=== PATIENT | female | born 1945 | race Caucasian/White ===

== ENCOUNTER 2018-03-11 09:30 | Emergency (ER) | payer MEDICARE, MEDICAID, SELFPAY ==
[2018-03-11] VITALS (13 sets, daily range): BP systolic 139–159; BP diastolic 73–79; PULSE 67–76; RESP 10–18; TEMP 36.6; O2SAT 96–100
--- NOTE | 2018-03-11 10:21 | DI.RAD_ITS ---
SYMPTOMS/DIAGNOSIS: COUGH PA AND LATERAL CHEST: The heart is not enlarged. There appear to be changes of COPD. No evidence of focal consolidation. No pleural effusion seen. CONCLUSION: COPD. No evidence of acute disease.
--- NOTE | 2018-03-11 10:29 | ED.GENADUL_ITS ---
Discharge Plan Disposition Patient Disposition: HOME Condition: Fair Discharge Details Chief Complaint: GenMedical Clinical Impression: Heart palpitations, Cough Primary Care Provider: None,None ED Provider: Hayley Alvarez Home Meds and New Rx's Prescriptions: New benzonatate [Tessalon Perles] 100 mg capsule 100 mg PO QID PRN (Reason: cough) Qty: 10 RF: 0 No Action A Variety Of Herbs RF: 0 Discharge Instructions Instructions: Palpitations (ED), Acute Cough (ED) Additional Instructions: Encourage hydration. Increase your daily food intake. You may use Tessalon Perles as prescribed to help with cough. Holter monitor as directed by respiratory therapy Please call primary care office today to schedule follow-up as discussed. Review develop shortness of breath, chest pain, fevers or the new/worsening symptoms please seek care urgently once again. Please begin the potassium supplement as previously advised. You are being sent home with a second potassium supplement to take tonight Referrals: Farzaneh Davalos [ [facility] STAFF PHYSICIAN] - ([phone]) Discharge Data Discharge Date/Time-TO BE ENTERED AT DEPARTURE: 03/11/18 13:07 Medical Decision Making Patient presents with a multitude of complaints today. She appears very anxious on exam. Vital signs are within normal limits. She is currently asymptomatic. Patient does have an odd affect, appears anxious. I questioned the daughter, who generally cares for her mother and is planning to move in with her shortly, about her demeanor. Daughter reports that since a fall in June, her mother has been having more short-term memory loss, anxiety. 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 Patient is very fixated on this, is already requesting discharge so she can go to take care of her dogs. Daughter reports that she often goes without eating as she fixates so much on the dogs she does not have time to care for herself. Has had weight loss over recent months. Patient reports that she had palpitations this morning ubaldo doing her typical morning activites. Has had these multiple times in the past, had these yesterday for short period as well. Reports that when she gets them, they will last a few minutes and self resolve. Denies CP or SOB with symptoms. Daughter reports she has had zio patch previously but she did not tolerate this well, this was after fall in June to evaluate for possilbe syncopal episode. She had not initially told these symptoms to daughter or nursing staff. Daughter is questioning if this is associated with her expressing her own symptoms of her known atrial fibrillation. When mother called her in a panic this morning, she called secondary to nausea and not feeling well. Patient has had increased confusion over quite some time per daughter report. Daughter denies any acute change recently. Daughter is planning on moving in with the patient to help with her day to day care and help with increasing her PO intake. She denies any recent head trauma, no visual changes. Patient seems unaware of her confusion but quesitoning does reveal confusion about day to day activities. Again, patient seems to largely fixate on her dogs. Patient endorses cough as above x 9 days. Lungs are clear on exam. She also reports intermittent nausea/vomiting, denies nausea currently. No abdominal pain on exam. Mild dry cough was noted while I was in the room. Differential diagnosis include URI, pneumonia, unusual cardiac rhythm, anxiety vs. other. Patient does not have risk factors for PE, is not tachycardic or hypoxic. No SOB. Find ACS unlikely as she has not had any chest discomfort, palpitations are not associated with exertion. Plan to obtain EKG, CXR, laboratory evaluation. EKG reivewed by Dr. Padilla. Patient in NSR, rate 71 with no ischemic changes noted. Labs significant for luekopenia, WBC 2.69, lymphocytes 0.52. Patient has had low previously but WBC is not typically this low. Discussed this with Dr. Padilla, he reviewed labs and advised that at this time he follow up with primary care for further evaluation. Potassium 3.0, patient has been low historically. Had been previously advised to take supplement but patient has refused as she does not take medications, prefers holistic medications. PCP had been concerned this was related to poor po intake. CXR reviewed by radiologist: COPD. No evidence of acute disease. Discussed findings with tehpatient. Advised that she wear a Holter Monitor, she idd not tolerate the length of time associated with a zio patch, for continued evaluation of her palpitations. She has remained asymptomatic here. Has had symptoms intermittently for quite some time, repeat troponin is not indicated at this time. In regard to cough, no evidence of bacterial source. No pulmonary findings on CXR, lungs clear on exam. Patient prescribed Tessalon Perles to help with symptomatic management. We discussed new/worsening symptoms andwhen to seek care urgently once again. I reached out to PCP, she is not available today but I was able to speak with nursing staff. We discussed the patients decline, WBC, palpitations, cough and increasing confusion. Advised close f/u with PCP. Daughter will make apointment as this iwll need to be around her work scheule. Holter applied by respiratory therapy. Potassium replenished. Advised on dietary changes. Urged the patient to worry about her own health primarily and care for the dogs secondarily. While here, her anxiety was clearly rising, seemed to be associated with time away from animals. Given strict return precautions. All of their questions nad concerns were addressed, they are in agreement with estevan casey. HPI General Mode of arrival: ambulatory . Date/Time Provider Initiated Documentation: 03/11/18 09:51 . Limitations to Documentation: no limitations . Information obtained by: patient and family . HPI Narrative: Patient is a 72-year-old female, accompanied by her daughter, with multiple complaints. She initially reported by nursing staff that her primary concern was upper respiratory symptoms that began 9 days ago with cough. She denies any ear pain, sore throat. States that when the illness initially began, she was having bert sea, vomiting and diarrhea. She reports this only lasted a few days and resolved. However, patient reports that nausea and vomiting came back this morning and she vomited x1. No diarrhea since the initial onset of illness. States she is having normal bowel movements at this time. Denies any abdominal pain. She denies any shortness of breath or chest pain. Denies any known sick contacts. No recent travel. No recent antibiotics When I spoke with the patient, she also began endorsing a feeling of her heart beating hard this morning that came on while doing her typical morning routine and insidiously resolved. Again, patient denied any feeling of shortness of breath or chest pain with this. Reports that she has had these types of symptoms previously. Related Data Home Medications Medication Instructions Recorded Confirmed A Variety Of Herbs 07/10/17 benzonatate [Tessalon Perles] 100 mg PO QID PRN #10 cap 03/11/18 Previous Rx's Medication Instructions Recorded benzonatate [Tessalon Perles] 100 mg PO QID PRN #10 cap 03/11/18 Allergies Allergy/AdvReac Type Severity Reaction Status Date / Time Penicillins Allergy Unknown Unverified 03/11/18 09:45 General Stated Complaint: GenMedical SRINIVAS: 3 Review of Systems Review of Systems patient is confused, story unclear and changes frequently Constitutional Reports as per HPI, Denies chills, Denies fever(s), Denies headache(s), Denies lethargy and Denies poor appetite Eyes Denies change in vision ENT Reports as per HPI, Denies headache(s), Denies hoarseness, Reports nasal congestion, Reports nasal discharge and Denies sore throat Cardiovascular Reports as per HPI, Denies chest pain, Denies syncope, Denies rapid heart rate, Denies pedal edema, Denies edema, Denies irregular heart rhythm, Denies radiating jaw, neck or arm pain, Reports palpitations, Denies dyspnea and Denies dyspnea on exertion Respiratory Reports as per HPI, Reports cough, Denies hemoptysis, Denies pain on inspiration, Denies pain with cough, Denies dyspnea, Denies dyspnea on exertion and Denies wheezing Gastrointestinal Reports as per HPI, Denies abdominal pain, Denies diarrhea, Reports nausea, Reports vomiting and Denies hematemesis Musculoskeletal Reports as per HPI and Denies back pain Integumentary/Breasts Reports as per HPI and Denies rash Neurologic Denies syncope and Denies headache(s) Endocrine Reports palpitations Allergic/Immunologic Denies wheezing Exam Const General: cooperative, healthy appearing, comfortable, no acute distress and well developed Nutritional Appearance: average body habitus and well nourished Orientation: alert, awake and oriented x3 HENMT Head: normal to inspection Ears: hearing grossly normal bilaterally Mouth: moist mucous membranes Chest Chest: normal inspection of the chest, normal palpation of entire chest wall and no crepitus Resp Effort & Inspection: normal respiratory effort, able to speak in complete sentences and no respiratory distress Auscultation: clear to auscultation bilaterally, no rales, no rhonchi and no wheezes Cardio Rate: regular rate Rhythm: regular rhythm Heart Sounds: S1 normal and S2 normal GI Inspection: normal to inspection, no edema and non-distended Palpation: soft, no hepatosplenomegaly, not firm, no guarding, not rigid and nontender Auscultation: normal bowel sounds Back/Spine/Pelvis Back: no CVA tenderness Thoracic/Lumbar Spine: thoracic and lumbar spine normal to inspection Skin General skin exam: no rashes or lesions noted Trauma: no lacerations or abrasions Neuro General: alert, awake and oriented x3 Cognition: normal cognition Speech: speech normal Gait: normal gait Extrem General: normal to inspection, normal capillary refill, no pedal edema, no calf tenderness and normal gait Psych Appearance: grossly normal and well kempt Mental Status: mental status grossly normal Speech and Movement: speech and movement normal Course Vital Signs Temperature 36.6 C 03/11/18 09:37 Pulse 71 03/11/18 09:37 Respiratory Rate 16 03/11/18 09:37 Blood Pressure 159/79 H 03/11/18 09:37 Pulse Oximetry 96 03/11/18 09:37 Temperature 36.6 C 03/11/18 09:37 Temperature Source Temporal Artery Scan 03/11/18 09:37 Pulse 71 03/11/18 09:37 Respiratory Rate 16 03/11/18 09:37 Blood Pressure 159/79 H 03/11/18 09:37 Blood Pressure Position Sitting 03/11/18 09:37 Pulse Oximetry 96 03/11/18 09:37 Oxygen Delivery Method Room Air 03/11/18 09:37 Oxygen Flow Rate 0 03/11/18 09:37 Pain Level 0 03/11/18 09:37
[2018-03-11 10:45] LABS: Absolute Basophil Count 0.01 k/cumm (0.0-0.2); Absolute Eosinophil Count 0.02 k/cumm (0.0-0.7); Absolute Lymphocyte Count 0.52 k/cumm (1.2-3.4); Absolute Monocyte Count 0.37 k/cumm (0.11-0.7); Absolute Neutrophil Count 1.77 k/cumm (1.2-6.7); Basophils % 0.4; Eosinophils % 0.7; HCT 37.8 % (36.0-46.0); HGB 12.8 g/dL (12.0-15.5); Lymphocytes % 19.3; Mean Corp. HGB Concentration 33.9 g/dL (32.0-36.0); Mean Corpuscular Hemoglobin 30.7 pg (27.0-33.0); Mean Corpuscular Volume 90.6 fL (80-95); Mean Platelet Volume 9.5 fL (8.0-11.0); Monocytes % 13.8; Neutrophils % 65.8; Platelet Count 206 x1000/uL (130-400); RBC 4.17 m/cumm (4.00-5.20); RBC Distribution Width 13.8 % (11.7-14.6); White Blood Cell Count 2.69 k/cumm (4.4-10.8)
[2018-03-11 10:58] LABS: Prothrombin Time 9.7 sec (9.3-11.0)
[2018-03-11 10:59] LABS: ALT 24 U/L (12-78); AST 22 U/L (15-37); Albumin 3.4 g/dL (3.4-5.0); Alkaline Phosphatase 60 U/L (46-116); Anion Gap 8.9 mmol/L (3-11); BUN 10 mg/dL (7-18); Bilirubin, Total 0.6 mg/dL (0.2-1.0); CO2 30.1 mmol/L (21.0-32.0); Calcium 8.9 mg/dL (8.5-10.1); Chloride 104 mmol/L (98-107); Glucose 99 mg/dL (70-100); Magnesium 1.7 mg/dL (1.8-2.4); Sodium 143 mmol/L (136-145); Total Protein 6.9 g/dL (6.4-8.2); Troponin I 0.02 ng/mL (0.00-0.06)
[2018-03-11] MEDS: Potassium Chloride 20 MEQ TABCR PO (12:23)
--- NOTE | 2018-03-18 16:13 | HOLTER_ITS ---
Date of dictation: March 18, 2018 Study Indication: Palpitations. Requesting Provider: Farzaneh Davalos N.P. Findings: The patient was monitored for 19 hours and 22 minutes. Baseline rhythm was sinus rhythm. Average heart rate 77 beats per minute, range of 56-123 beats per minutes. 9 PVCs. No VT. 354 PACs. 17 atrial runs, the longest 19 beats, the fastest 181 beats per minute. There was a single episode of atrial fibrillation lasting 1 minute and 15 seconds with a maximum heart rate of 173 beats per minute. No patient events. Final Interpretation: Bursts of atrial tachycardia and a single 1-minute episode of atrial fibrillation, asymptomatic.
== END 2018-03-11 13:07 | disposition home or self-care (01) ==
PROVIDERS: Emergency Provider Physician Assistant; PCP Nurse Practitioner
DX: R00.2 Palpitations (principal); R05 Cough; R41.0 Disorientation, unspecified
CPT/HCPCS: 80053; 93005; 99285; 71046; 83735; 84484; 85025; 85610; 85730; 93010; 93225; 99284

== ENCOUNTER 2018-03-16 09:31 | Outpatient (CLI) | payer MEDICARE, MEDICAID, SELFPAY | END 2018-03-16 09:51 | PROVIDERS: PCP Nurse Practitioner; Visit Provider Nurse Practitioner | DX: R00.2 Palpitations (principal); I48.91 Unspecified atrial fibrillation; I47.1 Supraventricular tachycardia | CPT/HCPCS: 93226 ==

== ENCOUNTER 2018-03-18 08:23 | Outpatient (CLI) | payer MEDICARE, MEDICAID, SELFPAY | END 2018-03-18 08:43 | PROVIDERS: PCP Nurse Practitioner; Referring Provider Physician Assistant; Visit Provider Student in an Organized Health Care Education/Training Program | DX: R00.2 Palpitations (principal); I48.91 Unspecified atrial fibrillation; I47.1 Supraventricular tachycardia | CPT/HCPCS: 93227 ==

== ENCOUNTER 2018-03-20 21:43 | Outpatient (REF) | payer MEDICARE, MEDICAID, SELFPAY ==
[2018-03-20 22:03] LABS: Absolute Basophil Count 0.02 k/cumm (0.0-0.2); Absolute Eosinophil Count 0.02 k/cumm (0.0-0.7); Absolute Lymphocyte Count 0.54 k/cumm (1.2-3.4); Absolute Monocyte Count 0.45 k/cumm (0.11-0.7); Absolute Neutrophil Count 3.66 k/cumm (1.2-6.7); Basophils % 0.4; Eosinophils % 0.4; HCT 36.9 % (36.0-46.0); HGB 12.1 g/dL (12.0-15.5); Lymphocytes % 11.5; Mean Corp. HGB Concentration 32.8 g/dL (32.0-36.0); Mean Corpuscular Hemoglobin 30.1 pg (27.0-33.0); Mean Corpuscular Volume 91.8 fL (80-95); Mean Platelet Volume 10.3 fL (8.0-11.0); Monocytes % 9.6; Neutrophils % 78.1; Platelet Count 344 x1000/uL (130-400); RBC 4.02 m/cumm (4.00-5.20); RBC Distribution Width 13.7 % (11.7-14.6); White Blood Cell Count 4.69 k/cumm (4.4-10.8)
[2018-03-20 22:20] LABS: ALT 19 U/L (12-78); AST 16 U/L (15-37); Albumin 3.7 g/dL (3.4-5.0); Alkaline Phosphatase 64 U/L (46-116); Anion Gap 8.1 mmol/L (3-11); BUN 20 mg/dL (7-18); Bilirubin, Total 0.4 mg/dL (0.2-1.0); CO2 30.9 mmol/L (21.0-32.0); CREATININE 0.74 mg/dL (0.55-1.02); Calcium 9.5 mg/dL (8.5-10.1); Chloride 108 mmol/L (98-107); Glucose 88 mg/dL (70-100); Potassium 3.4 mmol/L (3.5-5.1); Sodium 147 mmol/L (136-145); TSH (W/Ref FT4) 0.92 uIU/mL (0.358-3.74); Total Protein 6.8 g/dL (6.4-8.2)
== END 2018-03-20 22:03 ==
LOC: NCHCN 21:43
PROVIDERS: PCP Nurse Practitioner; Visit Provider Nurse Practitioner
DX: I48.0 Paroxysmal atrial fibrillation (principal); D72.819 Decreased white blood cell count, unspecified
CPT/HCPCS: 80053; 84443; 85025

== ENCOUNTER 2018-03-26 19:32 | Inpatient (IN) | payer MEDICARE, MEDICAID, SELFPAY ==
[2018-03-26 19:47] VITALS: BP 148/65; PULSE 94; RESP 18; TEMP 36.9; O2SAT 98
--- NOTE | 2018-03-26 19:59 | DI.CT_ITS ---
SYMPTOM/DIAGNOSIS: ALTERED MENTAL STATUS NONCONTRAST HEAD CT: Comparison is made with 07/11/15. There is no evidence of intracranial hemorrhage, mass or acute infarct. There is stable mild atrophy and white matter changes consistent with small vessel disease. The ventricles are normal in size. The sinuses, orbits and mastoid air cells are unremarkable. IMPRESSION: White matter changes likely reflecting small vessel disease. No acute abnormality.
--- NOTE | 2018-03-26 20:00 | DI.RAD_ITS ---
SYMPTOM/DIAGNOSIS: ALTERED MENTAL STATUS, ? PNEUMONIA, WEAKNESS AP AND LATERAL CHEST: Comparison is made with 03/11/18. The heart size is normal. The lungs again show mildly increased marking which appear chronic. No superimposed infiltrate, effusion or pulmonary edema is seen. There are no thoracic compression fractures. IMPRESSION: No acute abnormality.
--- NOTE | 2018-03-26 20:02 | ED.GENADUL_ITS ---
Discharge Plan Disposition Patient Disposition: [facility] INPATIENT Condition: Stable Discharge Details Chief Complaint: GenMedical Clinical Impression: Delirium, Acute UTI Primary Care Provider: Farzaneh Davalos ED Provider: Nakul Mendoza Home Meds and New Rx's Prescriptions: No Action A Variety Of Herbs RF: 0 Medical Decision Making 72 yo female with no significant pmhx comes in with her daughter with concerns for increased confusion and general weakness and unsteady gait. 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 The past 2 days or so she has not been able to get out of bed and the daughter today drove 2 hours from where she lives and had to help her out of bed. The patient had an unsteady gait per the daughter. The pt is not sure how long she has been in the bed. She has no focal motor or sensation deficits, is alert but only oriented to name, is not sure what city she is in, doesn't know the month and thought it was 1944. She denies any pain or dyspnea. Will evaluate for acute electrolyte abnormalities, uti, and obtain ct head to eval for possible sdh. Symptoms started over 2 days ago so would not be lytic candidate and symptoms don't seem consistent with a cva pt remains stable, does have a temp of 38.2, wbc of 15, UA appears to show uti. Will treat with ceftriaxone, and given she is too weak to get out of bed will admit for delirium and uti. Differential Diagnosis uti, cva, sdh, anemia, electrolyte abnormality Imaging Data Radiologic Study: Attestation: I personally reviewed and interpreted this imaging study as follows: Imaging: X-Ray Radiologist's impression: IMPRESSION: Hyperinflation of the lungs with flattening of the hemidiaphragms, compatible with COPD. Radiologic Study #2: Attestation: I personally reviewed and interpreted this imaging study as follows: Imaging: CT Scan Radiologist's impression: 1. No acute intracranial pathology. 2. Other chronic findings, as above. Lab Data Lab results reviewed: Yes I reviewed the patient's lab results. HPI General Mode of arrival: ambulatory . Date/Time Provider Initiated Documentation: 03/26/18 19:51 . Limitations to Documentation: altered mental status . Information obtained by: patient and family . History of Present Illness 72 year old F presents to the emergency department with the chief complaint of confusion and weakness, described as moderate, Patient started experiencing this unknown and it has been constant. No relieving factors improve symptom(s), No exacerbating factors reported . Patient notes weakness. Patient did receive the following treatments prior to arrival, none Related Data Home Medications Medication Instructions Recorded Confirmed A Variety Of Herbs 07/10/17 Allergies Allergy/AdvReac Type Severity Reaction Status Date / Time Penicillins Allergy Unknown Unverified 03/26/18 19:46 General Stated Complaint: GenMedical SRINIVAS: 3 Review of Systems Review of Systems All systems reviewed & are unremarkable except as noted in HPI and below Constitutional Denies chills and Denies fever(s) Cardiovascular Denies chest pain and Denies dyspnea Respiratory Denies dyspnea Gastrointestinal Denies abdominal pain, Denies nausea and Denies vomiting Integumentary/Breasts Denies rash Psychiatric Denies depression Endocrine Denies cold intolerance and Denies heat intolerance PFSH Social History Smoking/Tobacco Use Status: Never Exam Const General: no acute distress Orientation: alert HENMT Head: normal to inspection Ears: external ears normal General nose exam: external nose normal Mouth: moist mucous membranes Eyes General: appearance normal, both eyes and all related structures Neck Neck: normal visual inspection Resp Effort & Inspection: normal respiratory effort and able to speak in complete sentences Cardio Rate: regular rate Skin General skin exam: no rashes or lesions noted Neuro General: alert Extrem General: normal to inspection Psych Mental Status: mental status grossly normal Course Vital Signs Temperature 36.9 C 03/26/18 19:47 Pulse 94 H 03/26/18 19:47 Respiratory Rate 18 03/26/18 19:47 Blood Pressure 148/65 H 03/26/18 19:47 Pulse Oximetry 98 03/26/18 19:47 Temperature 36.9 C 03/26/18 19:47 Temperature Source Temporal Artery Scan 03/26/18 19:47 Pulse 94 H 03/26/18 19:47 Respiratory Rate 18 03/26/18 19:47 Respiratory Effort 03/26/18 19:50 Blood Pressure 148/65 H 03/26/18 19:47 Blood Pressure Position Sitting 03/26/18 19:47 Pulse Oximetry 98 03/26/18 19:47 Oxygen Delivery Method Room Air 03/26/18 19:47 Oxygen Flow Rate 0 03/26/18 19:47 Pain Level 0 03/26/18 19:47
[2018-03-26 20:13] LABS: Abs Immature Grans 0.05 k/cumm (0.0-0.09); Absolute Basophil Count 0.02 k/cumm (0.0-0.2); Absolute Lymphocyte Count 0.32 k/cumm (1.2-3.4); Absolute Monocyte Count 0.92 k/cumm (0.11-0.7); Absolute Neutrophil Count 13.86 k/cumm (1.2-6.7); Basophils % 0.1; HCT 33.7 % (36.0-46.0); HGB 11.2 g/dL (12.0-15.5); Immature Grans % 0.3; Lymphocytes % 2.1; Mean Corp. HGB Concentration 33.2 g/dL (32.0-36.0); Mean Corpuscular Hemoglobin 30.5 pg (27.0-33.0); Mean Corpuscular Volume 91.8 fL (80-95); Mean Platelet Volume 10.1 fL (8.0-11.0); Monocytes % 6.1; Neutrophils % 91.4; Platelet Count 195 x1000/uL (130-400); RBC 3.67 m/cumm (4.00-5.20); RBC Distribution Width 14.2 % (11.7-14.6); White Blood Cell Count 15.16 k/cumm (4.4-10.8)
[2018-03-26 20:26] LABS: Magnesium 2.2 mg/dL (1.8-2.4)
[2018-03-26 20:35] LABS: Ammonia < 10 umol/L (11-32)
[2018-03-26 20:36] LABS: INR 0.9 (0.9-1.1); Prothrombin Time 9.4 sec (9.3-11.0)
[2018-03-26 20:38] LABS: ALT 23 U/L (12-78); AST 22 U/L (15-37); Albumin 2.9 g/dL (3.4-5.0); Alkaline Phosphatase 70 U/L (46-116); Anion Gap 8.7 mmol/L (3-11); BUN 43 mg/dL (7-18); Bilirubin, Total 0.9 mg/dL (0.2-1.0); CO2 30.3 mmol/L (21.0-32.0); CREATININE 1.27 mg/dL (0.55-1.02); Chloride 99 mmol/L (98-107); Estimated GFR 41.25 (mL/min/1.73m2); Glucose 99 mg/dL (70-100); Magnesium 2.2 mg/dL (1.8-2.4); Potassium 3.2 mmol/L (3.5-5.1); Sodium 138 mmol/L (136-145); Total Protein 6.7 g/dL (6.4-8.2)
[2018-03-26 20:40] LABS: TSH (W/Ref FT4) 1.35 uIU/mL (0.358-3.74)
--- NOTE | 2018-03-26 20:41 | DI.VRAD_ITS ---
EXAM: CT Head Without Contrast EXAM DATE/TIME: 03/26/2018 8:01 PM CLINICAL HISTORY: 72 years old, female; Signs and symptoms; Altered mental status/memory loss TECHNIQUE: Axial computed tomography images of the head/brain without contrast. All CT scans at this facility use at least one of these dose optimization techniques: automated exposure control; mA and/or kV adjustment per patient size (includes targeted exams where dose is matched to clinical indication); or iterative reconstruction. Coronal and sagittal reformatted images were created and reviewed. COMPARISON: CT HEAD WITHOUT CONTRAST 07/10/2017 12:20 PM FINDINGS: Brain: Nonspecific hypodensities of the periventricular and deep subcortical white matter, most likely secondary to chronic small vessel ischemic change. No intracranial hemorrhage or extra-axial fluid collection. No evidence of mass effect or midline shift. Ulloa-white matter differentiation is normal. Ventricles: Prominence of the ventricles and sulci, most likely attributed to parenchymal volume loss. Bones/joints: No acute osseus lesion or fracture. Sinuses: Unremarkable as visualized. Mastoid air cells: Unremarkable. Soft tissues: Unremarkable. IMPRESSION: 1. No acute intracranial pathology. 2. Other chronic findings, as above. Dictated and Authenticated by: Galindo Prasad MD. Ordering:KITA Mota MD
--- NOTE | 2018-03-26 20:42 | DI.VRAD_ITS ---
EXAM: XR Chest, 2 Views EXAM DATE/TIME: 03/26/2018 8:01 PM CLINICAL HISTORY: 72 years old, female; Signs and symptoms; Other: ? Pneumonia TECHNIQUE: XR of the chest, 2 views. COMPARISON: CR XR CHEST 2V PA LATERAL 03/11/2018 10:46 AM FINDINGS: Lungs: Hyperinflation of the lungs, with flattening of the hemidiaphragms. Mild reticular fibrotic changes in the lung bases. No focal areas of consolidation. Pleural space: No pleural effusion or pneumothorax. Heart/Mediastinum: Cardiac and mediastinal silhouettes are unremarkable. Bones/joints: No acute osseus lesion or fracture. IMPRESSION: Hyperinflation of the lungs with flattening of the hemidiaphragms, compatible with COPD. Dictated and Authenticated by: Galindo Prasad MD. Ordering:KITA Mota MD
[2018-03-26 20:54] VITALS: TEMP 38.2
[2018-03-26 20:55] LABS: Bilirubin Negative (Negative); Blood Small (Negative); Clarity Sl Cloudy; Glucose Negative (Negative); Ketones Negative (Negative); Leukocyte Esterase Small (Negative); Nitrite Negative (Negative); Specific Gravity 1.025 (1.005-1.025); Urobilinogen 0.2 EU/dL (Up TO 0.2)
[2018-03-26 20:55] LABS: ETHANOL BLOOD < 3.0 mg/dL (<3)
[2018-03-26 20:59] LABS: Salicylate < 2.8 mg/dL (2.8-20.0)
[2018-03-26 21:01] LABS: *AMPHETAMINES SCREEN URINE Negative (Negative); *BARBITURATES SCREEN URINE Negative (Negative); *BENZODIAZEPINES SCREEN URINE Negative (Negative); Cannabinoids THC Negative (Negative); Cocaine Screen,Urine Negative (Negative); METHADONE URINE SCREEN Negative (Negative); OPIATES URINE SCREEN Negative (Negative); Tricyclic Antidepressants Negative (Negative)
[2018-03-26 21:14] LABS: Bacteria Rare HPF (Negative); C & S Indicated? Yes; Crystals Moderate Amorphous HPF (Negative); Epithelial Cells Negative HPF (Negative); Mucus Negative (Negative); Other Cells Negative (Negative); WBC >50 HPF (0-5)
[2018-03-26 21:36] VITALS: BP 131/57; PULSE 93; RESP 16; TEMP 37.9; O2SAT 96
[2018-03-26 23:51] VITALS: BP 150/67; PULSE 95; RESP 20; TEMP 37.9; O2SAT 97
--- NOTE | 2018-03-27 01:02 | W.PM.HP.N ---
Date of service: 03/27/18 Time of Service: 01:03 Assessment and Plan (1) Hydronephrosis concurrent with and due to calculi of kidney and ureter: Current visit: Yes Status: Acute keep NPO for possible urologic intervention tomorrow. consult w/ urologist first thing in the a.m.; continue iv antibiotics (Ceftriaxone at 2 gm daily), give analgesics and antiemetics; patel catheter (2) Complicated UTI (urinary tract infection): Current visit: Yes Status: Acute as above (3) Delirium due to another medical condition: Current visit: Yes Status: Acute monitor mental status as urologic infection/stone are resolved; hopefully will return to her baseline dementia (4) Acute kidney injury (nontraumatic): Current visit: Yes Status: Acute prerenal azotemia d/t poor oral intake and acute kidney infection/stone (5) Dehydration: Current visit: Yes Status: Acute poor oral intake; will give iv fluids until able to take adequate po. History of Present Illness Chief Complaint: confusion, weakness Narrative: 72-year-old female with a past medical history of dementia was brought to the emergency room this evening by her daughter because of increased confusion and generalized weakness and unsteady gait. Patient had a general decline in her cognitive status for the past year but generally is able to ambulate on her own and is able to manage to take care of several dogs at home. For last 2 days or so the daughter reports that the patient's been unable to get out of bed and has been more confused. Patient has fever of 38.2. Patient was evaluated in the emergency room by Dr. Nakul Mendoza and workup included routine labs (CMP, CBC, UA) and CT of head w/out contrast. Labs demonstrated leukocytosis of 15,000, mild anemia Hb 11.2 gm, elevated BUN 43, creatinine 1.27, low potassium 3.2, normal LFT, TSH, but UA c/w UTI (small amt blood, small leukocyte esterace, >50 wbc, 5-10, rare bacteria. Urine toxicology screen was negative and salicylate level was less than 2.8. Ammonia level was normal at less than 10. Treatment in the ER included obtaining blood cultures and giving Ceftriaxone 1 gm. Patient is admitted for treatment of dehydration and UTI along w/ acute metabolic encephalopathy in setting of chronic dementia. Since admission, I have found the patient to have significant RLQ abdominal pain and CT was performed to rule out appendicitis. I am awaiting formal reading of CT results but by my interpretations she seems to have significant ureteral-pelvic stone and hydronephrosis on the right. Urology consultation will be obtained in the a.m. Note history was obtained by Dr. Mendoza's report as the patient is unable to give reliable history and her daughter has since gone home. Review of Systems Review of Systems Unobtainable due to mental condition [facility] Social History Smoking/Tobacco Use Status: Never Meds Home Medications Medication Instructions Recorded Confirmed Type A Variety Of Herbs 07/10/17 History Allergies Allergy/AdvReac Type Severity Reaction Status Date / Time Penicillins Allergy Unknown Unverified 03/26/18 19:46 Exam Const General: in distress mild, anxious and ill appearing acutely Orientation: alert, awake, not oriented x3 and confused Limitations: altered mental status HENMT Head: normal to inspection, no palpable skull fracture, normocephalic and atraumatic Ears: hearing grossly normal bilaterally General nose exam: external nose normal and nares normal Face and sinus: normal facial exam Mouth: other (dry mucous membranes) Teeth and gingiva: dentures Throat: posterior oropharynx normal Eyes General: appearance normal, both eyes and all related structures Visual Murray: normal visual murray by confrontation Alignment and Position: alignment normal Periorbital: periorbital findings normal Eyelids: eyelids normal Conjunctivae: conjunctivae normal Sclera: sclerae normal Cornea: corneas normal Pupils: PERRL EOM: EOM intact bilaterally Direct ophthalmoscopy: normal light reflex Neck Neck: normal visual inspection, full ROM, no lymphadenopathy and trachea midline Thyroid: thyroid normal Carotids: normal carotid upstroke Lymphatic: no lymphadenopathy noted Resp Effort & Inspection: normal respiratory effort and able to speak in complete sentences Auscultation: clear to auscultation bilaterally Cardio Jugular venous pressure: no JVD Palpation: normal PMI Rate: regular rate Rhythm: regular rhythm Heart Sounds: S1 normal, S2 normal and normal, physiologic split S2 Pulses: normal peripheral pulses GI Inspection: distended Palpation: soft, no hepatosplenomegaly, guarding in the RLQ and tender in the RLQ Auscultation: hypoactive bowel sounds Back/Spine/Pelvis Back: no CVA tenderness Skin General skin exam: no rashes or lesions noted and elasticity normal Neuro General: alert, awake, not oriented x3, moves all extremities and no focal motor deficits Cognition: abnormal cognition Speech: speech normal Motor: muscle tone normal throughout, strength 5/5 throughout and no movement abnormalities noted Sensory Exam: no sensory deficits noted Extrem General: normal to inspection, full ROM, normal capillary refill, no joint enlargement and no clubbing, cyanosis or edema Psych Appearance: grossly normal Mental Status: other (confused) Speech and Movement: speech and movement normal Mood: other (confused) Affect: anxious affect Results Imaging Abdominal x-ray: image reviewed (right hydronephrosis w/ ureteral pelvic lithiasis, hydroureter) Labs : 03/26/18 20:00 03/26/18 20:00 Laboratory Results - last 24 hr 03/26/18 03/26/18 03/26/18 20:00 20:00 20:00 WBC RBC Hgb Hct MCV MCH MCHC RDW Plt Count MPV Immature Gran % Neutrophils % Lymphocytes % Monocytes % Eosinophils % Basophils % Absolute Neutrophils Absolute Lymphocytes Absolute Monocytes Absolute Eosinophils Absolute Basophils PT INR APTT Sodium 138 Potassium 3.2 L Chloride 99 Carbon Dioxide 30.3 Anion Gap 8.7 BUN 43 H Creatinine 1.27 H Estimated GFR/1.73 m2 41.25 Glucose 99 Calcium 9.0 Magnesium 2.2 Total Bilirubin 0.9 AST 22 ALT 23 Alkaline Phosphatase 70 Ammonia < 10 L Total Protein 6.7 Albumin 2.9 L TSH Urine Color Urine Clarity Urine pH Ur Specific [place] Urine Protein Urine Ketones Urine Blood Urine Nitrite Urine Bilirubin Urine Urobilinogen Ur Leukocyte Esterase Urine RBC Urine WBC Ur Epithelial Cells Urine Crystals Urine Bacteria Urine Casts Urine Mucus Urine Other Ur Culture Indicated? Urine Glucose Salicylates < 2.8 L Urine Opiates Screen Urine Methadone Screen Ur Barbiturates Screen Ur Tricyclics Screen Ur Amphetamines Screen U Benzodiazepines Scrn Urine Cocaine Screen Ur THC Screen Ethyl Alcohol < 3.0 03/26/18 03/26/18 03/26/18 20:00 20:00 20:00 WBC 15.16 H RBC 3.67 L Hgb 11.2 L Hct 33.7 L MCV 91.8 MCH 30.5 MCHC 33.2 RDW 14.2 Plt Count 195 D MPV 10.1 Immature Gran % 0.3 Neutrophils % 91.4 Lymphocytes % 2.1 Monocytes % 6.1 Eosinophils % 0.0 Basophils % 0.1 Absolute Neutrophils 13.86 H Absolute Lymphocytes 0.32 L Absolute Monocytes 0.92 H Absolute Eosinophils 0.00 Absolute Basophils 0.02 PT 9.4 INR 0.9 APTT 32.0 H Sodium Potassium Chloride Carbon Dioxide Anion Gap BUN Creatinine Estimated GFR/1.73 m2 Glucose Calcium Magnesium 2.2 Total Bilirubin AST ALT Alkaline Phosphatase Ammonia Total Protein Albumin TSH Urine Color Urine Clarity Urine pH Ur Specific [place] Urine Protein Urine Ketones Urine Blood Urine Nitrite Urine Bilirubin Urine Urobilinogen Ur Leukocyte Esterase Urine RBC Urine WBC Ur Epithelial Cells Urine Crystals Urine Bacteria Urine Casts Urine Mucus Urine Other Ur Culture Indicated? Urine Glucose Salicylates Urine Opiates Screen Urine Methadone Screen Ur Barbiturates Screen Ur Tricyclics Screen Ur Amphetamines Screen U Benzodiazepines Scrn Urine Cocaine Screen Ur THC Screen Ethyl Alcohol 03/26/18 03/26/18 03/26/18 20:00 20:05 20:05 WBC RBC Hgb Hct MCV MCH MCHC RDW Plt Count MPV Immature Gran % Neutrophils % Lymphocytes % Monocytes % Eosinophils % Basophils % Absolute Neutrophils Absolute Lymphocytes Absolute Monocytes Absolute Eosinophils Absolute Basophils PT INR APTT Sodium Potassium Chloride Carbon Dioxide Anion Gap BUN Creatinine Estimated GFR/1.73 m2 Glucose Calcium Magnesium Total Bilirubin AST ALT Alkaline Phosphatase Ammonia Total Protein Albumin TSH 1.35 Urine Color Yellow Urine Clarity Sl cloudy Urine pH 5.0 Ur Specific [place] 1.025 Urine Protein 100 H Urine Ketones Negative Urine Blood Small H Urine Nitrite Negative Urine Bilirubin Negative Urine Urobilinogen 0.2 Ur Leukocyte Esterase Small H Urine RBC 5-10 H Urine WBC >50 Ur Epithelial Cells Negative Urine Crystals Moderate amorphous Urine Bacteria Rare Urine Casts 5-10 fine granular Urine Mucus Negative Urine Other Negative Ur Culture Indicated? Yes Urine Glucose Negative Salicylates Urine Opiates Screen Negative Urine Methadone Screen Negative Ur Barbiturates Screen Negative Ur Tricyclics Screen Negative Ur Amphetamines Screen Negative U Benzodiazepines Scrn Negative Urine Cocaine Screen Negative Ur THC Screen Negative Ethyl Alcohol Last Vital Signs Temp 37.9 C H 03/26/18 23:51 Pulse 95 H 03/26/18 23:51 Resp 20 03/26/18 23:51 BP 150/67 H 03/26/18 23:51 Pulse Ox 97 03/26/18 23:51
--- NOTE | 2018-03-27 01:22 | DI.CT_ITS ---
SYMPTOM/DIAGNOSIS: RLQ ABD PAIN, FEVER, S/P ERCP AND CBD SPHINCTEROTOMY AND STONE EXTRACTION ABDOMEN AND PELVIC CT: A small portion of the lung bases are included on the exam which show dependent changes. There is a non obstructing stone measuring 4 by 7 mm. in the mid left kidney. An additional tiny adjacent stone is seen. 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 There is mild right hydronephrosis as well as right perinephric stranding. The ureter is difficult to trace into the pelvis due to lack of intra-abdominal fat. There are questionable densities in the vicinity of the distal ureter which could represent phleboliths versus ureteral calcifications. The left kidney is unremarkable. The visualized portions of the liver and spleen are unremarkable. The gallbladder is not abnormally distended and no calcified stones are seen. The pancreas and adrenals are unremarkable. No bowel dilatation or inflammatory changes are seen. The uterus, ovaries and bladder are unremarkable. IMPRESSION: Non obstructing stones in the right kidney. There is mild right hydronephrosis and perinephric stranding. No definite ureteral calculi are seen.
[2018-03-27 01:44] LABS: Lactate 0.5 mmol/L (0.6-1.4)
[2018-03-27] MEDS: MetroNIDAZOLE 500 MG/100 ML BAG 100 MG IVPB (01:47)
[2018-03-27] MEDS: Acetaminophen 650 MG SUPP PR (01:48)
[2018-03-27] MEDS: POTASSIUM CHLORIDE/0.9% NACL 1,000 ML 150 MEQ IV ×2 (01:50→15:00)
[2018-03-27] MEDS: Normal Saline Flush 10 ML SYR IVP (01:50)
--- NOTE | 2018-03-27 02:41 | NUR.NOTE ---
Patient was brought to the unit by Amari from the ER. Patient is a poor historian in relaying why she was brought to the hospital. However during the assessment she did showed signs of pain when abdomen was being assessed, she was also noted with facial grimace. On assessment patient is conscious and alert to self and place but not to time at this moment. Patient appears frail and lethargic also fatigue. Chest clear when ascultated, abdomen soft and tenderness exhibited to the right lower aspect. She has a right 20G AC in place for medications and IV fluids. No abnormalities to the lower extremities except multiple varicose veins on the lower aspect
--- NOTE | 2018-03-27 03:22 | DI.VRAD_ITS ---
EXAM: CT Abdomen and Pelvis Without Contrast EXAM DATE/TIME: 03/27/2018 1:23 AM CLINICAL HISTORY: 72 years old, female; Pain; Abdominal pain; Localized; Right lower quadrant (rlq); Prior surgery; Surgery date: Post-operative (0-2 days); Surgery type: S/P ercp, cbd sphincterotomy and stone extraction TECHNIQUE: Axial computed tomography images of the abdomen and pelvis without contrast. All CT scans at this facility use at least one of these dose optimization techniques: automated exposure control; mA and/or kV adjustment per patient size (includes targeted exams where dose is matched to clinical indication); or iterative reconstruction. Coronal and sagittal reformatted images were created and reviewed. COMPARISON: No relevant prior studies available. FINDINGS: Limitations: Upper abdomen excluded from view, presumably by protocol. Relative paucity of intra-abdominal fat. Lower thorax: Extreme lung bases are grossly clear. ABDOMEN: Liver: Upper liver partially excluded from view. Visualized unenhanced liver grossly unremarkable. Upper liver partially excluded from view. Visualized unenhanced liver grossly unremarkable. Gallbladder and bile ducts: Gallbladder partially decompressed and partially obscured. No grossly calcified gallstones. No biliary dilatation. No gross pneumobilia. Pancreas: Pancreas partially obscured by close apposition of adjacent structures but grossly unremarkable, as seen. No pancreatic ductal dilatation. Spleen: Upper spleen partially excluded from view. Visualized unenhanced spleen grossly unremarkable. Adrenals: Adrenal glands partially obscured but grossly unremarkable, as seen. Kidneys and ureters: Nonobstructing right renal calculi with the largest measuring 4 mm x 7 mm. No radiopaque left renal calculi. Ureters partially obscured. Mild asymmetric prominence of the right collecting system and proximal ureter. Asymmetric perinephric edema on the right. 1 mm right pelvic calcification, apparently within the mid right pelvic ureteral segment although this is not definitive, image 41 of series 2. Mild asymmetric periureteral edema on the right. Bilateral pelvic calcifications, probably phleboliths. Stomach and bowel: No oral contrast. Proximal stomach excluded from view. Visualized stomach largely decompressed. Proximal duodenum largely obscured by close apposition of adjacent structures. No small bowel dilatation to suggest obstruction. Appendix: Appendix not confidently identified, probably either obscured or surgically absent. Correlation with surgical history recommended. Appendix not identified, probably obscured or surgically absent. Correlation with surgical history recommended. PELVIS: Bladder: Grossly normal-appearing urinary bladder, moderately distended. Reproductive: Normal-sized uterus, partially obscured. Ovaries partially obscured but not grossly enlarged. ABDOMEN and PELVIS: Intraperitoneal space: No gross ascites. No free air. Bones/joints: No acute fracture seen among the bones of the abdomen or pelvis. Prominent discogenic degeneration at L5-S1. Soft tissues: No significant ventral or inguinal hernia. Vasculature: Normal caliber abdominal aorta. Lymph nodes: Within the limits of the exam, pathologically enlarged mesenteric, retroperitoneal, or pelvic sidewall lymph nodes. IMPRESSION: 1. Nonobstructing right renal calculi with the largest measuring 4 mm x 7 mm. 2. Mild asymmetric prominence of the right renal collecting system with perinephric edema, mild asymmetric prominence of the proximal right ureter, and mild asymmetric fat stranding on the right in the periureteral region. Ureters partially obscured. A 1 mm calculus along the right pelvic sidewall appears to lie within the right pelvic ureter. Although a right mid pelvic ureteral stone is suspected, a mimicking periureteral phlebolith is not definitively excluded. Clinical correlation is recommended. Dictated and Authenticated by: Dung Acosta MD. Ordering[facility] Ange Mccullough MD
[2018-03-27] MEDS: Tamsulosin 0.4 MG CAPCR PO (04:02)
--- NOTE | 2018-03-27 07:38 | PDOC.CMIN ---
- If Service Date Differs Date of service: 03/27/18 Time of Service: 07:38 Care Management Initial Assess REASON FOR HOSPITALIZATION:: Delerium, UTI. PAST MEDICAL HISTORY/PAST SURGICAL HISTORY:: Dementia. PREVIOUS FUNCTIONAL STATUS/SOCIAL/FAMILY SUPPORTS:: Ne resides alone in [place] with eight elderly dogs. 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 She has one daughter, Inocencia, who lives in [place], [place] with her and children. Per Inocencia, Ne has been declining cognitively over the past few years and has taken a decidedly sharp turn over the last three weeks. Inocencia is able to check on her mom every other weekend and reports that she phones her several times a day to check in. Ne has been independent with her ADLs (though per Inocencia has not been feeding herself or tending well to the dogs). Ne relies on a friend in [facility] or Inocencia for transportation. CURRENT FUNCTIONAL STATUS:: Ne is lying in bed following a placement of right ureteral stent when visits this afternoon. Her daughter, Inocencia, is at bedside. Ne makes good eye contact, is engaged in conversation, and is talkative. She is teary, as is Inocencia, when talking about 'next steps' and where she will go from here. Per Inocencia, Ne's cognitive abilities have been declining and she is unable to continue living alone and caring for herself and her eight dogs. It is very apparent that Ne loves her dogs, and she is alarmed when Inocencia points out that yesterday she was not able to get out of bed to let the dogs outside, and she forgot their water bowl in the sink after filling it. Inocencia reports that she and her mother have been planning on having Ne move to [place]; selling both of their houses and buying a larger home for the entire family. Ne is struggling with the loss her of independence and the life she once led. She is most upset about her dogs and has identified (with help from Dr. Hagan and Inocencia) that what happens with her dogs needs to be her focus right now. Discussion is ongoing regarding euthenizing the dogs or finding placement for them. ADVANCE DIRECTIVES:: On file at [facility]. Health Care Agent: Inocencia Sandhu. Has patient been provided with information about the portal?: Yes Did the patient sign up for the portal?: No CODE STATUS:: DNR/DNI INSURANCE COVERAGE / FINANCIAL ISSUES:: Medicaid, Medicare. CURRENT HOME/COMMUNITY SERVICES/EQUIPMENT:: No current home or community services. Katharina Zurita (CCC at [facility]) has given Ne information on MOW. Ne has a cane at home but does not use it very often for ambulation. PRIMARY CARE PHYSICIAN:: Farzaneh Davalos. POTENTIAL DISCHARGE NEEDS:: Follow up appointment with PCP, s/t rehab placement (?). PATIENT/FAMILY EDUCATION NEEDS:: Discharge education, and limitations, and follow up plan of care. Ask Me Three discussion. ANTICIPATED BARRIERS TO DISCHARGE:: No anticipated barriers to discharge. TRANSPORTATION:: Ne will transport via private vehicle with her daughter, Inocencia. PLAN:: Ne will discharge home when medically ready per MD. Anticipate patient will discharge to her daughter's home (with/without home health services) vs. a s/t rehab stay at a SNF and follow up with her PCP. CM will continue to offer support to patient, family, and care team regarding discharge planning and disposition.
[2018-03-27 08:14] LABS: Abs Immature Grans 0.01 k/cumm (0.0-0.09); Absolute Basophil Count 0.01 k/cumm (0.0-0.2); Absolute Eosinophil Count 0.02 k/cumm (0.0-0.7); Absolute Lymphocyte Count 0.28 k/cumm (1.2-3.4); Absolute Monocyte Count 0.69 k/cumm (0.11-0.7); Absolute Neutrophil Count 9.44 k/cumm (1.2-6.7); Basophils % 0.1; Eosinophils % 0.2; HCT 33.4 % (36.0-46.0); HGB 10.9 g/dL (12.0-15.5); Immature Grans % 0.1; Lymphocytes % 2.7; Mean Corp. HGB Concentration 32.6 g/dL (32.0-36.0); Mean Corpuscular Hemoglobin 30.4 pg (27.0-33.0); Monocytes % 6.6; Neutrophils % 90.3; Platelet Count 184 x1000/uL (130-400); RBC 3.59 m/cumm (4.00-5.20); RBC Distribution Width 14.1 % (11.7-14.6); White Blood Cell Count 10.45 k/cumm (4.4-10.8)
--- NOTE | 2018-03-27 08:17 | W.UROLOGYCON ---
Date of service: 03/27/18 Time of Service: 08:17 History of Present Illness Chief Complaint: Right kidney stones Narrative: This is a 72-year-old woman who is admitted through the emergency room last evening. She presented with fevers, chills and worsening mental status. On her initial evaluation, the most likely source of any infection seem to be her urinary tract based on an abnormal urinalysis. Blood and urine cultures were obtained. After her admission, she began to complain of some right lower quadrant discomfort. She underwent a CT scan specifically looking for appendicitis. Instead, we identified stones in the right kidney, some right perinephric and periureteral edema, mild hydronephrosis and the possibility of right ureteral stones. I have been asked to see her for these issues. The patient is conversant this morning. She is not complaining of pain, but is complaining of being cold and shivering. She is not aware of a previous history of kidney stones or any type of urologic surgery. I do not find any record of previous urine samples or UTIs. Review of Systems Review of Systems She admits to yuliet. She denies any current abdominal pain She denies any gross hematuria [facility] Medical History Dementia (Chronic) Social History Smoking/Tobacco Use Status: Never Exam Narrative Exam Narrative: She appears frail. Her vital signs are documented elsewhere in the chart Her abdomen is soft. I do not find any peritoneal signs. No abdominal masses are palpable. She is awake and alert I reviewed her noncontrast CT from last evening. She does not really have much hydronephrosis, but there is significant perinephric edema and stranding. There are some relatively large stones in the right kidney, but these particular stones do not appear to be obstructive. It is very difficult to track the ureter all the way down to the bladder. Numerous calcifications are seen in the abdomen and pelvis, and some of them could be ureteral. In reviewing her old records, I find no other abdominal imaging. She has had some chest CT scans and has been evaluated by [facility] for a possible pulmonary mass. Ultimately, this area was felt to be benign and simple monitoring was recommended. I also found that she has had cardiac monitoring within the past year. No significant abnormalities were identified. Results Last Vital Signs Temp 37.9 C H 03/26/18 23:51 Pulse 95 H 03/26/18 23:51 Resp 20 03/26/18 23:51 BP 150/67 H 03/26/18 23:51 Pulse Ox 97 03/26/18 23:51 Labs : 03/27/18 07:20 03/26/18 20:00 Laboratory Results - last 24 hr 03/26/18 03/26/18 03/26/18 20:00 20:00 20:00 WBC RBC Hgb Hct MCV MCH MCHC RDW Plt Count MPV Immature Gran % Neutrophils % Lymphocytes % Monocytes % Eosinophils % Basophils % Absolute Neutrophils Absolute Lymphocytes Absolute Monocytes Absolute Eosinophils Absolute Basophils PT INR APTT Sodium 138 Potassium 3.2 L Chloride 99 Carbon Dioxide 30.3 Anion Gap 8.7 BUN 43 H Creatinine 1.27 H Estimated GFR/1.73 m2 41.25 Glucose 99 Lactate Calcium 9.0 Magnesium 2.2 Total Bilirubin 0.9 AST 22 ALT 23 Alkaline Phosphatase 70 Ammonia < 10 L Total Protein 6.7 Albumin 2.9 L TSH Urine Color Urine Clarity Urine pH Ur Specific [place] Urine Protein Urine Ketones Urine Blood Urine Nitrite Urine Bilirubin Urine Urobilinogen Ur Leukocyte Esterase Urine RBC Urine WBC Ur Epithelial Cells Urine Crystals Urine Bacteria Urine Casts Urine Mucus Urine Other Ur Culture Indicated? Urine Glucose Salicylates < 2.8 L Urine Opiates Screen Urine Methadone Screen Ur Barbiturates Screen Ur Tricyclics Screen Ur Amphetamines Screen U Benzodiazepines Scrn Urine Cocaine Screen Ur THC Screen Ethyl Alcohol < 3.0 03/26/18 03/26/18 03/26/18 20:00 20:00 20:00 WBC 15.16 H RBC 3.67 L Hgb 11.2 L Hct 33.7 L MCV 91.8 MCH 30.5 MCHC 33.2 RDW 14.2 Plt Count 195 D MPV 10.1 Immature Gran % 0.3 Neutrophils % 91.4 Lymphocytes % 2.1 Monocytes % 6.1 Eosinophils % 0.0 Basophils % 0.1 Absolute Neutrophils 13.86 H Absolute Lymphocytes 0.32 L Absolute Monocytes 0.92 H Absolute Eosinophils 0.00 Absolute Basophils 0.02 PT 9.4 INR 0.9 APTT 32.0 H Sodium Potassium Chloride Carbon Dioxide Anion Gap BUN Creatinine Estimated GFR/1.73 m2 Glucose Lactate Calcium Magnesium 2.2 Total Bilirubin AST ALT Alkaline Phosphatase Ammonia Total Protein Albumin TSH Urine Color Urine Clarity Urine pH Ur Specific [place] Urine Protein Urine Ketones Urine Blood Urine Nitrite Urine Bilirubin Urine Urobilinogen Ur Leukocyte Esterase Urine RBC Urine WBC Ur Epithelial Cells Urine Crystals Urine Bacteria Urine Casts Urine Mucus Urine Other Ur Culture Indicated? Urine Glucose Salicylates Urine Opiates Screen Urine Methadone Screen Ur Barbiturates Screen Ur Tricyclics Screen Ur Amphetamines Screen U Benzodiazepines Scrn Urine Cocaine Screen Ur THC Screen Ethyl Alcohol 03/26/18 03/26/18 03/26/18 20:00 20:05 20:05 WBC RBC Hgb Hct MCV MCH MCHC RDW Plt Count MPV Immature Gran % Neutrophils % Lymphocytes % Monocytes % Eosinophils % Basophils % Absolute Neutrophils Absolute Lymphocytes Absolute Monocytes Absolute Eosinophils Absolute Basophils PT INR APTT Sodium Potassium Chloride Carbon Dioxide Anion Gap BUN Creatinine Estimated GFR/1.73 m2 Glucose Lactate Calcium Magnesium Total Bilirubin AST ALT Alkaline Phosphatase Ammonia Total Protein Albumin TSH 1.35 Urine Color Yellow Urine Clarity Sl cloudy Urine pH 5.0 Ur Specific [place] 1.025 Urine Protein 100 H Urine Ketones Negative Urine Blood Small H Urine Nitrite Negative Urine Bilirubin Negative Urine Urobilinogen 0.2 Ur Leukocyte Esterase Small H Urine RBC 5-10 H Urine WBC >50 Ur Epithelial Cells Negative Urine Crystals Moderate amorphous Urine Bacteria Rare Urine Casts 5-10 fine granular Urine Mucus Negative Urine Other Negative Ur Culture Indicated? Yes Urine Glucose Negative Salicylates Urine Opiates Screen Negative Urine Methadone Screen Negative Ur Barbiturates Screen Negative Ur Tricyclics Screen Negative Ur Amphetamines Screen Negative U Benzodiazepines Scrn Negative Urine Cocaine Screen Negative Ur THC Screen Negative Ethyl Alcohol 03/27/18 03/27/18 03/27/18 01:40 04:29 07:20 WBC 10.45 D RBC 3.59 L Hgb 10.9 L Hct 33.4 L MCV 93.0 MCH 30.4 MCHC 32.6 RDW 14.1 Plt Count 184 MPV 11.0 Immature Gran % 0.1 Neutrophils % 90.3 Lymphocytes % 2.7 Monocytes % 6.6 Eosinophils % 0.2 Basophils % 0.1 Absolute Neutrophils 9.44 H Absolute Lymphocytes 0.28 L Absolute Monocytes 0.69 Absolute Eosinophils 0.02 Absolute Basophils 0.01 PT INR APTT Sodium Potassium Chloride Carbon Dioxide Anion Gap BUN Creatinine Estimated GFR/1.73 m2 Glucose Lactate 0.5 L Cancelled Calcium Magnesium Total Bilirubin AST ALT Alkaline Phosphatase Ammonia Total Protein Albumin TSH Urine Color Urine Clarity Urine pH Ur Specific [place] Urine Protein Urine Ketones Urine Blood Urine Nitrite Urine Bilirubin Urine Urobilinogen Ur Leukocyte Esterase Urine RBC Urine WBC Ur Epithelial Cells Urine Crystals Urine Bacteria Urine Casts Urine Mucus Urine Other Ur Culture Indicated? Urine Glucose Salicylates Urine Opiates Screen Urine Methadone Screen Ur Barbiturates Screen Ur Tricyclics Screen Ur Amphetamines Screen U Benzodiazepines Scrn Urine Cocaine Screen Ur THC Screen Ethyl Alcohol 03/27/18 07:29 WBC RBC Hgb Hct MCV MCH MCHC RDW Plt Count MPV Immature Gran % Neutrophils % Lymphocytes % Monocytes % Eosinophils % Basophils % Absolute Neutrophils Absolute Lymphocytes Absolute Monocytes Absolute Eosinophils Absolute Basophils PT INR APTT Sodium Potassium Chloride Carbon Dioxide Anion Gap BUN Creatinine Estimated GFR/1.73 m2 Glucose Lactate Cancelled Calcium Magnesium Total Bilirubin AST ALT Alkaline Phosphatase Ammonia Total Protein Albumin TSH Urine Color Urine Clarity Urine pH Ur Specific [place] Urine Protein Urine Ketones Urine Blood Urine Nitrite Urine Bilirubin Urine Urobilinogen Ur Leukocyte Esterase Urine RBC Urine WBC Ur Epithelial Cells Urine Crystals Urine Bacteria Urine Casts Urine Mucus Urine Other Ur Culture Indicated? Urine Glucose Salicylates Urine Opiates Screen Urine Methadone Screen Ur Barbiturates Screen Ur Tricyclics Screen Ur Amphetamines Screen U Benzodiazepines Scrn Urine Cocaine Screen Ur THC Screen Ethyl Alcohol Assessment and Plan (1) Complicated UTI (urinary tract infection): Current visit: Yes Status: Acute She does not have much hydronephrosis, but she is also dehydrated. At a minimum, based on her urine sample and her CT scan, she appears to have pyelonephritis. I believe the best option for this woman would be to place a right ureteral stent along with broad-spectrum antibody. I believe this would give her the best chance of clearing her infection. This procedure can be done acutely with sedation and local anesthesia only. We would not plan on dealing with her stones at all at this point in time. That could be done later once her acute illness has cleared. I did leave a message with patient's daughter regarding this plan. With the patient's delirium, I am not sure how much of this discussion registered with her.
[2018-03-27 08:23] LABS: ALT 18 U/L (12-78); AST 18 U/L (15-37); Albumin 2.5 g/dL (3.4-5.0); Alkaline Phosphatase 81 U/L (46-116); Anion Gap 8.4 mmol/L (3-11); BUN 32 mg/dL (7-18); Bilirubin, Total 0.5 mg/dL (0.2-1.0); CO2 29.6 mmol/L (21.0-32.0); CREATININE 1.08 mg/dL (0.55-1.02); Calcium 8.6 mg/dL (8.5-10.1); Chloride 104 mmol/L (98-107); Estimated GFR 49.73 (mL/min/1.73m2); Glucose 88 mg/dL (70-100); Sodium 142 mmol/L (136-145); Total Protein 6.1 g/dL (6.4-8.2)
[2018-03-27 08:26] LABS: Potassium 2.9 mmol/L (3.5-5.1)
[2018-03-27 09:19] VITALS: BP 127/67; PULSE 80; RESP 21; TEMP 38.2; O2SAT 96
--- NOTE | 2018-03-27 09:31 | DI.RAD_ITS ---
SYMPTOMS/DIAGNOSIS: EARLY SEPSIS C-ARM FLUOROSCOPY: Fluoroscopy Time: 20.7secs Fluoroscopy was provided in the OR for Dr. Bravo. Hardcopy images show injection of contrast into the right ureter and placement of a stent. Please see procedure note for details.
--- NOTE | 2018-03-27 09:51 | INITIAL_ITS ---
- If Service Date Differs Date of service: 03/27/18 Time of Service: 07:38 Care Management Initial Assess REASON FOR HOSPITALIZATION:: Delerium, UTI. PAST MEDICAL HISTORY/PAST SURGICAL HISTORY:: Dementia. PREVIOUS FUNCTIONAL STATUS/SOCIAL/FAMILY SUPPORTS:: Ne resides alone in [place] with eight elderly dogs. 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 She has one daughter, Inocencia, who lives in [place], [place] with her and children. Per Inocencia, Ne has been declining cognitively over the past few years and has taken a decidedly sharp turn over the last three weeks. Inocencia is able to check on her mom every other weekend and reports that she phones her several times a day to check in. Ne has been independent with her ADLs (though per Inocencia has not been feeding herself or tending well to the dogs). Ne relies on a friend in [facility] or Inocencia for transportation. CURRENT FUNCTIONAL STATUS:: Ne is lying in bed following a placement of right ureteral stent when visits this afternoon. Her daughter, Inocencia, is at bedside. Ne makes good eye contact, is engaged in conversation, and is talkative. She is teary, as is Inocencia, when talking about 'next steps' and where she will go from here. Per Inocencia, Ne's cognitive abilities have been declining and she is unable to continue living alone and caring for herself and her eight dogs. It is very apparent that Ne loves her dogs, and she is alarmed when Inocencia points out that yesterday she was not able to get out of bed to let the dogs outside, and she forgot their water bowl in the sink after filling it. Inocencia reports that she and her mother have been planning on having Ne move to [place]; selling both of their houses and buying a larger home for the entire family. Ne is struggling with the loss her of independence and the life she once led. She is most upset about her dogs and has identified (with help from Dr. Hagan and Inocencia) that what happens with her dogs needs to be her focus right now. Discussion is ongoing regarding euthenizing the dogs or finding placement for them. ADVANCE DIRECTIVES:: On file at [facility]. Health Care Agent: Inocencia Sandhu. Has patient been provided with information about the portal?: Yes Did the patient sign up for the portal?: No CODE STATUS:: DNR/DNI INSURANCE COVERAGE / FINANCIAL ISSUES:: Medicaid, Medicare. CURRENT HOME/COMMUNITY SERVICES/EQUIPMENT:: No current home or community services. Katharina Zurita (CCC at [facility]) has given Ne information on MOW. Ne has a cane at home but does not use it very often for ambulation. PRIMARY CARE PHYSICIAN:: Farzaneh Davalos. POTENTIAL DISCHARGE NEEDS:: Follow up appointment with PCP, s/t rehab placement (?). PATIENT/FAMILY EDUCATION NEEDS:: Discharge education, and limitations, and follow up plan of care. Ask Me Three discussion. ANTICIPATED BARRIERS TO DISCHARGE:: No anticipated barriers to discharge. TRANSPORTATION:: Ne will transport via private vehicle with her daughter, Inocencia. PLAN:: Ne will discharge home when medically ready per MD. Anticipate patient will discharge to her daughter's home (with/without home health services) vs. a s/t rehab stay at a SNF and follow up with her PCP. CM will continue to offer support to patient, family, and care team regarding discharge planning and disposition.
[2018-03-27] MEDS: Lactated Ringers 1,000 ML 100 ML IV (09:53)
[2018-03-27] MEDS: Lidocaine 2% Jelly 6 ML SYR (10:07)
[2018-03-27] MEDS: Omnipaque 300 MG/ML 50 ML BTL (10:20)
[2018-03-27 10:27] VITALS: BP 118/56; PULSE 64; RESP 15; TEMP 36.7; O2SAT 99
[2018-03-27 10:32] VITALS: BP 112/59; PULSE 66; RESP 17; TEMP 36.7; O2SAT 99
[2018-03-27 10:37] VITALS: BP 115/58; PULSE 63; RESP 17; TEMP 36.7; O2SAT 99
[2018-03-27 10:52] VITALS: BP 133/62; PULSE 68; RESP 18; TEMP 36.7; O2SAT 99
--- NOTE | 2018-03-27 11:43 | ROE_ITS ---
DATE OF PROCEDURE: March 27, 2018 PREOPERATIVE DIAGNOSIS: Right pyelonephritis. POSTOPERATIVE DIAGNOSIS: Same. PROCEDURE: Cystoscopy; right retrograde pyelogram; insert right ureteral stent. SURGEON: Bonilla Bravo M.D. ANESTHESIA: Monitored Anesthesia Care with local. COMPLICATIONS: None. ESTIMATED BLOOD LOSS: Minimal. HISTORY: This is a 72-year-old woman who has a history of some baseline dementia. She has had worse lex mental status issues over the past 24 to 48 hours. She was brought to the Emergency Room where she was found to be febrile. She had leukocytosis and her urine appeared to show a urinary tract inf ection. Blood and urine cultures have been obtained but are not yet available. She was started on b road spectrum antibiotics. She then began developing some right lower quadrant pain. This prompted a CT scan which showed stone s in the right kidney. She didn't have much hydronephrosis, but she has been rather dehydrated. She presents now for stent placement to allow any infected urine from the right kidney to drain. OPERATIVE REPORT: The patient was brought to the Operating Room on 03/27/18. After given Monitored A nesthesia Care, she was placed in the dorsal lithotomy position. Her genitalia was prepped and drape d. Her indwelling catheter had been previously removed. A 22 Somali rigid cystoscope was passed through the urethra into the bladder. The bladder was inspec norman with a 30-degree lens. The right ureteral orifice was identified. A 6 Somali access catheter was passed through the cystosco pe and maneuvered into the right ureteral orifice. A retrograde film was obtained by injecting Omnip aque through the access catheter under fluoroscopic guidance. The ureter appeared somewhat irregular with segments of dilated ureter. No specific filling defects were identified. I was able to pass a guidewire through the access catheter and maneuver it into the upper pole calyx. A 7 Somali variable-length stent was then advanced over the wire. The proximal end of the stent wa s seen curled in the upper pole calyx and the distal end was seen curled in the bladder. The positio lex of the stent was confirmed both cystoscopically and fluoroscopically. The cystoscope was then removed. A 16 Somali Ramos catheter was passed back through the urethra into the bladder. The catheter balloon was inflated with 10 cc's of sterile water and the catheter was h ooked to gravity drainage. The patient tolerated this procedure with no complications.
[2018-03-27] MEDS: POTASSIUM CHLORIDE 10 MEQ/100 ML BAG 100 MEQ IV (12:47)
[2018-03-27] MEDS: Acetaminophen Solution 650 MG/20.3 ML CUP PO (13:52)
--- NOTE | 2018-03-27 15:02 | PCNE_ITS ---
Date of service: 03/27/18 Time of Service: 12:54 History of Present Illness Chief Complaint: malnutrition, poor self-care, uretal stent Narrative: 72 yo woman who has lived alone x 20 years, has 8 dogs, was bedbound x 48hrs +/- prior to admission for UTI, obstructing kidney stones, uretal stent placement, malnutrition, weakness. Has Mild Cognitive Impairment. Does not use allopathic medications. 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 Last hospitalization was when her daughter was born 50 years ago. Daughter has been working with her mother on legal issues for last 6 months. Daughter is only child and is officially DPOA; daughter and her are on deed to her house and 53 acres in [place]. 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 They are expecting that once Ne is released to home, they will have her live with them. Consults Consult date: 03/27/18 Requesting physician: Pratima Vuong Assessment and Plan (1) Delirium due to another medical condition: Current visit: Yes Status: Acute Mentally clearer than she was on admission. Does not appear to be a true dementia, more like MCI. (2) Dehydration: Current visit: Yes Status: Acute Putting out about 50 ccs/ hr, MM still dry, but getting better. Was not taking in much at home. (3) Palliative care patient: Current visit: Yes Status: Acute Will need to be followed until she is ready to transition to [place] and her daughter's home. (4) Goals of care, counseling/discussion: Current visit: Yes Status: Acute Major decision today is what to do with her 8 dogs. She has to let her daughter know whether to have them euthanized or released for adoption. She will let us know tomorrow. Will see her tomorrow. Review of Systems Constitutional Reports body ache(s), Reports daytime sleepiness, Reports fatigue, Reports poor appetite, Reports weakness and Reports weight loss Eyes Reports dry eyes and Reports requires corrective lenses ENT Reports vertigo, Reports dizziness and Reports dry mouth Cardiovascular Reports rapid heart rate, Reports palpitations and Reports dyspnea on exertion Respiratory Reports dyspnea on exertion Gastrointestinal Reports early satiety and Reports fecal incontinence Genitourinary Reports urinary incontinence Musculoskeletal Reports atrophy and Reports muscle weakness Integumentary/Breasts Reports dry skin Neurologic Reports vertigo, Reports dizziness, Reports memory loss and Reports weakness Psychiatric Reports anxiety, Reports hopelessness and Reports memory loss Endocrine Reports fatigue and Reports palpitations Hematologic/Lymphatic Reports lymphadenopathy PFSH Medical History Goals of care, counseling/discussion (Acute) Hypokalemia (Acute) Palliative care patient (Acute) Ureteral stenosis, right (Acute) Malnutrition (Chronic) Mild cognitive impairment (Chronic) Unintentional weight loss (Chronic) Dementia (Ruled-out) Surgical History S/P ureteral stent placement (Acute) Family History Mother Ovarian cancer Father No problems noted. Daughter No problems noted. Social History caregiver/support person: No household members: none housing: house marital status: single lives independently: Yes number of children: 1 number of grandchildren: 1 mcfp: No current occupational status: retired pets and animals: Yes (8 dogs) pets and animals: dog(s) well-balanced diet: rarely or never high-fat food intake: 0-1 times daily daily servings fruits/ve-1 daily servings of milk/calcium: 0-1 eating out: rarely or never reads food labels: seldom or never during the past year weight has: decreased > 10 lbs Smoking/Tobacco Use Status: Never alcohol intake: former Exam Const General: cooperative, disheveled, frail appearing and ill appearing Nutritional Appearance: thin Orientation: alert, awake, oriented to person and oriented to place HENME Head: normal to inspection Ears: hearing grossly normal bilaterally General nose exam: external nose normal Eyes General: appearance normal, both eyes and all related structures Neck Neck: normal visual inspection, no lymphadenopathy and no JVD Resp Effort & Inspection: normal respiratory effort and able to speak in complete sentences Auscultation: clear to auscultation bilaterally and no bronchial breath sounds Cardio Jugular venous pressure: no JVD Rate: regular rate Rhythm: regular rhythm Heart Sounds: S1 normal and S2 normal GI Inspection: normal to inspection Palpation: soft Auscultation: normal bowel sounds General: other (patel catheter in place) Back/Spine/Pelvis Cervical Spine: cervical spinal tenderness Skin General skin exam: no rashes or lesions noted and dry skin Hair: normal (but dirty/unwashed) Nails: other (need cutting) Neuro General: alert, awake and moves all extremities Cognition: abnormal cognition (mild cognitive impairment exacerbated by anxiety and acute illness) Speech: speech normal Sensory Exam: no sensory deficits noted Extrem General: normal to inspection and other (wearing scds on her legs, feet without edema) Psych Appearance: disheveled Mental Status: mental status grossly normal Speech and Movement: delayed speech Mood: anxious mood Affect: sad Attitude: cooperative Thought Process: circumstantial and illogical Thought Content: compulsions (about her dogs, which she regards as her children/family as much as her melissa) Insight: limited Judgment: limited Results Last Vital Signs Temp 98.1 F 03/27/18 10:52 Pulse 68 03/27/18 10:52 Resp 18 03/27/18 10:52 BP 133/62 03/27/18 10:52 Pulse Ox 99 03/27/18 10:52 Labs : 03/27/18 07:20 03/27/18 07:20 Laboratory Results - last 24 hr 03/26/18 03/26/18 03/26/18 20:00 20:00 20:00 WBC RBC Hgb Hct MCV MCH MCHC RDW Plt Count MPV Immature Gran % Neutrophils % Lymphocytes % Monocytes % Eosinophils % Basophils % Absolute Neutrophils Absolute Lymphocytes Absolute Monocytes Absolute Eosinophils Absolute Basophils PT INR APTT Sodium 138 Potassium 3.2 L Chloride 99 Carbon Dioxide 30.3 Anion Gap 8.7 BUN 43 H Creatinine 1.27 H Estimated GFR/1.73 m2 41.25 Glucose 99 Lactate Calcium 9.0 Magnesium 2.2 Total Bilirubin 0.9 AST 22 ALT 23 Alkaline Phosphatase 70 Ammonia < 10 L Total Protein 6.7 Albumin 2.9 L TSH Urine Color Urine Clarity Urine pH Ur Specific [place] Urine Protein Urine Ketones Urine Blood Urine Nitrite Urine Bilirubin Urine Urobilinogen Ur Leukocyte Esterase Urine RBC Urine WBC Ur Epithelial Cells Urine Crystals Urine Bacteria Urine Casts Urine Mucus Urine Other Ur Culture Indicated? Urine Glucose Salicylates < 2.8 L Urine Opiates Screen Urine Methadone Screen Ur Barbiturates Screen Ur Tricyclics Screen Ur Amphetamines Screen U Benzodiazepines Scrn Urine Cocaine Screen Ur THC Screen Ethyl Alcohol < 3.0 03/26/18 03/26/18 03/26/18 20:00 20:00 20:00 WBC 15.16 H RBC 3.67 L Hgb 11.2 L Hct 33.7 L MCV 91.8 MCH 30.5 MCHC 33.2 RDW 14.2 Plt Count 195 D MPV 10.1 Immature Gran % 0.3 Neutrophils % 91.4 Lymphocytes % 2.1 Monocytes % 6.1 Eosinophils % 0.0 Basophils % 0.1 Absolute Neutrophils 13.86 H Absolute Lymphocytes 0.32 L Absolute Monocytes 0.92 H Absolute Eosinophils 0.00 Absolute Basophils 0.02 PT 9.4 INR 0.9 APTT 32.0 H Sodium Potassium Chloride Carbon Dioxide Anion Gap BUN Creatinine Estimated GFR/1.73 m2 Glucose Lactate Calcium Magnesium 2.2 Total Bilirubin AST ALT Alkaline Phosphatase Ammonia Total Protein Albumin TSH Urine Color Urine Clarity Urine pH Ur Specific [place] Urine Protein Urine Ketones Urine Blood Urine Nitrite Urine Bilirubin Urine Urobilinogen Ur Leukocyte Esterase Urine RBC Urine WBC Ur Epithelial Cells Urine Crystals Urine Bacteria Urine Casts Urine Mucus Urine Other Ur Culture Indicated? Urine Glucose Salicylates Urine Opiates Screen Urine Methadone Screen Ur Barbiturates Screen Ur Tricyclics Screen Ur Amphetamines Screen U Benzodiazepines Scrn Urine Cocaine Screen Ur THC Screen Ethyl Alcohol 03/26/18 03/26/18 03/26/18 20:00 20:05 20:05 WBC RBC Hgb Hct MCV MCH MCHC RDW Plt Count MPV Immature Gran % Neutrophils % Lymphocytes % Monocytes % Eosinophils % Basophils % Absolute Neutrophils Absolute Lymphocytes Absolute Monocytes Absolute Eosinophils Absolute Basophils PT INR APTT Sodium Potassium Chloride Carbon Dioxide Anion Gap BUN Creatinine Estimated GFR/1.73 m2 Glucose Lactate Calcium Magnesium Total Bilirubin AST ALT Alkaline Phosphatase Ammonia Total Protein Albumin TSH 1.35 Urine Color Yellow Urine Clarity Sl cloudy Urine pH 5.0 Ur Specific [place] 1.025 Urine Protein 100 H Urine Ketones Negative Urine Blood Small H Urine Nitrite Negative Urine Bilirubin Negative Urine Urobilinogen 0.2 Ur Leukocyte Esterase Small H Urine RBC 5-10 H Urine WBC >50 Ur Epithelial Cells Negative Urine Crystals Moderate amorphous Urine Bacteria Rare Urine Casts 5-10 fine granular Urine Mucus Negative Urine Other Negative Ur Culture Indicated? Yes Urine Glucose Negative Salicylates Urine Opiates Screen Negative Urine Methadone Screen Negative Ur Barbiturates Screen Negative Ur Tricyclics Screen Negative Ur Amphetamines Screen Negative U Benzodiazepines Scrn Negative Urine Cocaine Screen Negative Ur THC Screen Negative Ethyl Alcohol 03/27/18 03/27/18 03/27/18 01:40 04:29 07:20 WBC RBC Hgb Hct MCV MCH MCHC RDW Plt Count MPV Immature Gran % Neutrophils % Lymphocytes % Monocytes % Eosinophils % Basophils % Absolute Neutrophils Absolute Lymphocytes Absolute Monocytes Absolute Eosinophils Absolute Basophils PT INR APTT Sodium 142 Potassium 2.9 L* Chloride 104 Carbon Dioxide 29.6 Anion Gap 8.4 BUN 32 H D Creatinine 1.08 H Estimated GFR/1.73 m2 49.73 Glucose 88 Lactate 0.5 L Cancelled Calcium 8.6 Magnesium Total Bilirubin 0.5 AST 18 ALT 18 Alkaline Phosphatase 81 Ammonia Total Protein 6.1 L Albumin 2.5 L TSH Urine Color Urine Clarity Urine pH Ur Specific [place] Urine Protein Urine Ketones Urine Blood Urine Nitrite Urine Bilirubin Urine Urobilinogen Ur Leukocyte Esterase Urine RBC Urine WBC Ur Epithelial Cells Urine Crystals Urine Bacteria Urine Casts Urine Mucus Urine Other Ur Culture Indicated? Urine Glucose Salicylates Urine Opiates Screen Urine Methadone Screen Ur Barbiturates Screen Ur Tricyclics Screen Ur Amphetamines Screen U Benzodiazepines Scrn Urine Cocaine Screen Ur THC Screen Ethyl Alcohol 03/27/18 03/27/18 07:20 07:29 WBC 10.45 D RBC 3.59 L Hgb 10.9 L Hct 33.4 L MCV 93.0 MCH 30.4 MCHC 32.6 RDW 14.1 Plt Count 184 MPV 11.0 Immature Gran % 0.1 Neutrophils % 90.3 Lymphocytes % 2.7 Monocytes % 6.6 Eosinophils % 0.2 Basophils % 0.1 Absolute Neutrophils 9.44 H Absolute Lymphocytes 0.28 L Absolute Monocytes 0.69 Absolute Eosinophils 0.02 Absolute Basophils 0.01 PT INR APTT Sodium Potassium Chloride Carbon Dioxide Anion Gap BUN Creatinine Estimated GFR/1.73 m2 Glucose Lactate Cancelled Calcium Magnesium Total Bilirubin AST ALT Alkaline Phosphatase Ammonia Total Protein Albumin TSH Urine Color Urine Clarity Urine pH Ur Specific [place] Urine Protein Urine Ketones Urine Blood Urine Nitrite Urine Bilirubin Urine Urobilinogen Ur Leukocyte Esterase Urine RBC Urine WBC Ur Epithelial Cells Urine Crystals Urine Bacteria Urine Casts Urine Mucus Urine Other Ur Culture Indicated? Urine Glucose Salicylates Urine Opiates Screen Urine Methadone Screen Ur Barbiturates Screen Ur Tricyclics Screen Ur Amphetamines Screen U Benzodiazepines Scrn Urine Cocaine Screen Ur THC Screen Ethyl Alcohol
[2018-03-27] MEDS: Potassium Chloride 20 MEQ TABCR 40 MEQ PO (20:29)
--- NOTE | 2018-03-27 20:29 | PGE_ITS ---
Date of Service Date of service: 03/27/18 Time of Service: 18:10 Subjective Interval history since last seen: Patient seen briefly. She is s/p cystoscopy/R ureteral stent today. Pain is controlled. She is tearful that she has to part with her dogs because she cannot return home. She has 8 dogs, and she is trying to decide if she wants to put them down. Palliative care and case management are on board. VSS/labs reviewed. Continue IVF and rocephin. PT/OT consults. Replete and monitor potassium. Objective Objective Clinical Data: Abnormal lab results 03/26/18 03/26/18 03/26/18 Range/Units 20:00 20:00 20:00 RBC (4.00-5.20) m/cumm Hgb (12.0-15.5) g/dL Hct (36.0-46.0) % Absolute Neutrophils (1.2-6.7) k/cumm Absolute Lymphocytes (1.2-3.4) k/cumm APTT (21.0-31.4) sec Potassium 3.2 L (3.5-5.1) mmol/L BUN 43 H (7-18) mg/dL Creatinine 1.27 H (0.55-1.02) mg/dL Lactate (0.6-1.4) mmol/L Ammonia < 10 L (11-32) umol/L Total Protein (6.4-8.2) g/dL Albumin 2.9 L (3.4-5.0) g/dL Urine Protein (Negative) mg/dL Urine Blood (Negative) Ur Leukocyte Esterase (Negative) Urine RBC (0-2) Salicylates < 2.8 L (2.8-20.0) mg/dL 03/26/18 03/26/18 03/27/18 Range/Units 20:00 20:05 01:40 RBC (4.00-5.20) m/cumm Hgb (12.0-15.5) g/dL Hct (36.0-46.0) % Absolute Neutrophils (1.2-6.7) k/cumm Absolute Lymphocytes (1.2-3.4) k/cumm APTT 32.0 H (21.0-31.4) sec Potassium (3.5-5.1) mmol/L BUN (7-18) mg/dL Creatinine (0.55-1.02) mg/dL Lactate 0.5 L (0.6-1.4) mmol/L Ammonia (11-32) umol/L Total Protein (6.4-8.2) g/dL Albumin (3.4-5.0) g/dL Urine Protein 100 H (Negative) mg/dL Urine Blood Small H (Negative) Ur Leukocyte Esterase Small H (Negative) Urine RBC 5-10 H (0-2) Salicylates (2.8-20.0) mg/dL 03/27/18 03/27/18 Range/Units 07:20 07:20 RBC 3.59 L (4.00-5.20) m/cumm Hgb 10.9 L (12.0-15.5) g/dL Hct 33.4 L (36.0-46.0) % Absolute Neutrophils 9.44 H (1.2-6.7) k/cumm Absolute Lymphocytes 0.28 L (1.2-3.4) k/cumm APTT (21.0-31.4) sec Potassium 2.9 L* (3.5-5.1) mmol/L BUN 32 H D (7-18) mg/dL Creatinine 1.08 H (0.55-1.02) mg/dL Lactate (0.6-1.4) mmol/L Ammonia (11-32) umol/L Total Protein 6.1 L (6.4-8.2) g/dL Albumin 2.5 L (3.4-5.0) g/dL Urine Protein (Negative) mg/dL Urine Blood (Negative) Ur Leukocyte Esterase (Negative) Urine RBC (0-2) Salicylates (2.8-20.0) mg/dL Vital Signs Temperature 36.7 C 03/27/18 10:52 Temperature Source Tympanic 03/27/18 09:19 Pulse 68 03/27/18 10:52 Pulse Rhythm Regular 03/27/18 10:03 Respiratory Rate 18 03/27/18 10:52 Respiratory Effort 03/27/18 10:03 Respiratory Depth Normal 03/27/18 10:03 Respiratory Pattern Normal 03/27/18 10:03 Blood Pressure 133/62 03/27/18 10:52 Blood Pressure Position Sitting 03/26/18 19:47 Pulse Oximetry 99 03/27/18 10:52 Respiratory End-tidal CO2 29 03/27/18 10:52 Oxygen Delivery Method Room Air 03/27/18 10:52 Oxygen Flow Rate 0 03/27/18 09:19 Pain Level 0 03/27/18 10:52 Comment 03/27/18 09:19 Intake & Output 03/26/18 03/27/18 03/27/18 23:59 11:59 23:59 Intake Total 50 / 50 1066.667 / 1066.667 Output Total 300 / 625 325 / 625 Balance 50 / 50 766.667 / 441.667 -325 / 441.667 Weight 46.6 kg 44.5 kg Intake: IV 50 / 50 1066.667 / 1066.667 Output: Urine 300 / 625 325 / 625 Other: Urine Color Yellow Dark Lizabeth Urine Appearance Clear Comment patient is putting out clear yellow urine bladder scanned earlier for 0 Emesis Description None Laboratory Results WBC 10.45 k/cumm (4.4-10.8) D 03/27/18 07:20 RBC 3.59 m/cumm (4.00-5.20) L 03/27/18 07:20 Hgb 10.9 g/dL (12.0-15.5) L 03/27/18 07:20 Hct 33.4 % (36.0-46.0) L 03/27/18 07:20 MCV 93.0 fL (80-95) 03/27/18 07:20 MCH 30.4 pg (27.0-33.0) 03/27/18 07:20 MCHC 32.6 g/dL (32.0-36.0) 03/27/18 07:20 RDW 14.1 % (11.7-14.6) 03/27/18 07:20 Plt Count 184 x1000/uL (130-400) 03/27/18 07:20 MPV 11.0 fL (8.0-11.0) 03/27/18 07:20 Immature Gran % 0.1 03/27/18 07:20 Neutrophils % 90.3 03/27/18 07:20 Lymphocytes % 2.7 03/27/18 07:20 Monocytes % 6.6 03/27/18 07:20 Eosinophils % 0.2 03/27/18 07:20 Basophils % 0.1 03/27/18 07:20 Absolute Neutrophils 9.44 k/cumm (1.2-6.7) H 03/27/18 07:20 Absolute Lymphocytes 0.28 k/cumm (1.2-3.4) L 03/27/18 07:20 Absolute Monocytes 0.69 k/cumm (0.11-0.7) 03/27/18 07:20 Absolute Eosinophils 0.02 k/cumm (0.0-0.7) 03/27/18 07:20 Absolute Basophils 0.01 k/cumm (0.0-0.2) 03/27/18 07:20 PT 9.4 sec (9.3-11.0) 03/26/18 20:00 INR 0.9 (0.9-1.1) 03/26/18 20:00 APTT 32.0 sec (21.0-31.4) H 03/26/18 20:00 Sodium 142 mmol/L (136-145) 03/27/18 07:20 Potassium 2.9 mmol/L (3.5-5.1) L* 03/27/18 07:20 Chloride 104 mmol/L (98-107) 03/27/18 07:20 Carbon Dioxide 29.6 mmol/L (21.0-32.0) 03/27/18 07:20 Anion Gap 8.4 mmol/L (3-11) 03/27/18 07:20 BUN 32 mg/dL (7-18) H D 03/27/18 07:20 Creatinine 1.08 mg/dL (0.55-1.02) H 03/27/18 07:20 Estimated GFR/1.73 m2 49.73 (mL/min/1.73m2) 03/27/18 07:20 Glucose 88 mg/dL (70-100) 03/27/18 07:20 Lactate 0.5 mmol/L (0.6-1.4) L 03/27/18 01:40 Calcium 8.6 mg/dL (8.5-10.1) 03/27/18 07:20 Magnesium 2.2 mg/dL (1.8-2.4) 03/26/18 20:00 Total Bilirubin 0.5 mg/dL (0.2-1.0) 03/27/18 07:20 AST 18 U/L (15-37) 03/27/18 07:20 ALT 18 U/L (12-78) 03/27/18 07:20 Alkaline Phosphatase 81 U/L (46-116) 03/27/18 07:20 Ammonia < 10 umol/L (11-32) L 03/26/18 20:00 Total Protein 6.1 g/dL (6.4-8.2) L 03/27/18 07:20 Albumin 2.5 g/dL (3.4-5.0) L 03/27/18 07:20 TSH 1.35 uIU/mL (0.358-3.74) 03/26/18 20:00 Urine Color Yellow (Yellow) 03/26/18 20:05 Urine Clarity Sl cloudy 03/26/18 20:05 Urine pH 5.0 (5-8) 03/26/18 20:05 Ur Specific [place] 1.025 (1.005-1.025) 03/26/18 20:05 Urine Protein 100 mg/dL (Negative) H 03/26/18 20:05 Urine Ketones Negative mg/dL (Negative) 03/26/18 20:05 Urine Blood Small (Negative) H 03/26/18 20:05 Urine Nitrite Negative (Negative) 03/26/18 20:05 Urine Bilirubin Negative (Negative) 03/26/18 20:05 Urine Urobilinogen 0.2 EU/dL (Up TO 0.2) 03/26/18 20:05 Ur Leukocyte Esterase Small (Negative) H 03/26/18 20:05 Urine RBC 5-10 (0-2) H 03/26/18 20:05 Urine WBC >50 HPF (0-5) 03/26/18 20:05 Ur Epithelial Cells Negative HPF (Negative) 03/26/18 20:05 Urine Crystals Moderate amorphous HPF (Negative) 03/26/18 20:05 Urine Bacteria Rare HPF (Negative) 03/26/18 20:05 Urine Casts 5-10 fine granular LPF (Negative) 03/26/18 20:05 Urine Mucus Negative (Negative) 03/26/18 20:05 Urine Other Negative (Negative) 03/26/18 20:05 Ur Culture Indicated? Yes 03/26/18 20:05 Urine Glucose Negative mg/dL (Negative) 03/26/18 20:05 Salicylates < 2.8 mg/dL (2.8-20.0) L 03/26/18 20:00 Urine Opiates Screen Negative (Negative) 03/26/18 20:05 Urine Methadone Screen Negative (Negative) 03/26/18 20:05 Ur Barbiturates Screen Negative (Negative) 03/26/18 20:05 Ur Tricyclics Screen Negative (Negative) 03/26/18 20:05 Ur Amphetamines Screen Negative (Negative) 03/26/18 20:05 U Benzodiazepines Scrn Negative (Negative) 03/26/18 20:05 Urine Cocaine Screen Negative (Negative) 03/26/18 20:05 Ur THC Screen Negative (Negative) 03/26/18 20:05 Ethyl Alcohol < 3.0 mg/dL (<3) 03/26/18 20:00
[2018-03-27] MEDS: POTASSIUM CHLORIDE/0.9% NACL 1,000 ML 100 MEQ IV (22:30)
[2018-03-27 22:35] VITALS: BP 109/55; PULSE 74; RESP 16; TEMP 36.3; O2SAT 98
[2018-03-27] MEDS: Melatonin 3 MG TAB PO (23:45)
--- NOTE | 2018-03-28 04:45 | NUR.NOTE ---
Nursing Note: 7P to 7A Shift: Patient been anxious and verbalized of being afraid of dying. Melatonin given at HS , slept for an hour. repositioned on bed. Managed to take po potassium. Encouraged for oral fluids due to dry mouth. Ramos drained [place] urine. Refused to get pain med. Repositioned on bed. Bed alarm in progress.
[2018-03-28 07:07] LABS: Abs Immature Grans 0.02 k/cumm (0.0-0.09); Absolute Basophil Count 0.01 k/cumm (0.0-0.2); Absolute Eosinophil Count 0.04 k/cumm (0.0-0.7); Absolute Lymphocyte Count 0.42 k/cumm (1.2-3.4); Absolute Monocyte Count 0.73 k/cumm (0.11-0.7); Basophils % 0.2; Eosinophils % 0.6; HCT 32.7 % (36.0-46.0); HGB 10.7 g/dL (12.0-15.5); Immature Grans % 0.3; Lymphocytes % 6.4; Mean Corp. HGB Concentration 32.7 g/dL (32.0-36.0); Mean Corpuscular Hemoglobin 30.1 pg (27.0-33.0); Mean Corpuscular Volume 91.9 fL (80-95); Mean Platelet Volume 10.8 fL (8.0-11.0); Monocytes % 11.1; Neutrophils % 81.4; Platelet Count 181 x1000/uL (130-400); RBC 3.56 m/cumm (4.00-5.20); White Blood Cell Count 6.59 k/cumm (4.4-10.8)
[2018-03-28 07:12] LABS: Absolute Neutrophil Count 5.36 k/cumm (1.2-6.7)
[2018-03-28 07:20] LABS: Anion Gap 8.5 mmol/L (3-11); BUN 16 mg/dL (7-18); CO2 24.5 mmol/L (21.0-32.0); CREATININE 0.69 mg/dL (0.55-1.02); Calcium 8.2 mg/dL (8.5-10.1); Chloride 109 mmol/L (98-107); Glucose 95 mg/dL (70-100); Magnesium 1.8 mg/dL (1.8-2.4); Potassium 4.1 mmol/L (3.5-5.1); Sodium 142 mmol/L (136-145)
[2018-03-28 08:00] VITALS: BP 138/75; PULSE 69; RESP 20; TEMP 36.8; O2SAT 96
[2018-03-28] MEDS: Potassium Chloride 20 MEQ TABCR 40 MEQ PO ×2 (08:45→20:49)
[2018-03-28] MEDS: POTASSIUM CHLORIDE/0.9% NACL 1,000 ML 100 MEQ IV ×2 (08:45→19:00)
--- NOTE | 2018-03-28 09:05 | W.PM.PROGNOT ---
Date of Service Date of service: 03/28/18 Time of Service: 09:05 Assessment and Plan (1) Hydronephrosis concurrent with and due to calculi of kidney and ureter: Current visit: Yes Status: Acute (2) Complicated UTI (urinary tract infection): Current visit: Yes Status: Acute Her urine and blood cultures are both growing gram-negative's. She has a right ureteral stent in place to help with drainage of the right kidney. Her vital signs and her white blood count are improving with the stent and the broad-spectrum antibiotics. Once her antibiotic sensitivities are available, her antibiotics can be adjusted. In terms of her stent management and her kidney stones, we generally do not recommend addressing them until after she completes her antibiotics. We are able to leave chronic stents in place for up to 3 months, so the window of opportunity to deal with her stones is fairly wide. Typically, we will recommend a cystoscopy and flexible ureteroscopy with possible holmium laser of her stones and stone evacuation. This type of procedure is usually done as an outpatient with a general anesthesia. The patient currently lives here in the [facility], but her daughter works at [employer] [facility] [facility]. From a social situation, it may be easier and wiser for the patient to have her procedure done down in [place]. This would be a very reasonable choice and would not need to entail an emergent or urgent transfer while the patient is an inpatient. There would be plenty of time for her to be evaluated as an outpatient prior to any surgical plan. As the patient clinically improves, and her mobility improves, her urethral catheter can be removed. Subjective Interval history since last seen: The patient does not recall much about our encounter/surgery of yesterday. She continues to feel cold, but is not visibly shaking this morning. She continually questions why she has an IV in her arm. Exam Narrative Exam Narrative: She appears frail, but does not appear septic or toxic. Her vital signs are documented elsewhere. It is noted that her temperature has come down. Her urine in the catheter is clear. She is awake and alert Objective Objective Clinical Data: Abnormal lab results 03/28/18 03/28/18 Range/Units 06:30 06:30 RBC 3.56 L (4.00-5.20) m/cumm Hgb 10.7 L (12.0-15.5) g/dL Hct 32.7 L (36.0-46.0) % Absolute Lymphocytes 0.42 L (1.2-3.4) k/cumm Absolute Monocytes 0.73 H (0.11-0.7) k/cumm Chloride 109 H (98-107) mmol/L Calcium 8.2 L (8.5-10.1) mg/dL Vital Signs Temperature 36.3 C L 03/27/18 22:35 Temperature Source Tympanic 03/27/18 22:35 Pulse 74 03/27/18 22:35 Pulse Rhythm Regular 03/28/18 00:03 Respiratory Rate 16 03/27/18 22:35 Respiratory Effort 03/28/18 00:03 Respiratory Depth Normal 03/28/18 00:03 Respiratory Pattern Normal 03/28/18 00:03 Blood Pressure 109/55 L 03/27/18 22:35 Blood Pressure Position Sitting 03/26/18 19:47 Pulse Oximetry 98 03/27/18 22:35 Respiratory End-tidal CO2 29 03/27/18 10:52 Oxygen Delivery Method Room Air 03/27/18 22:35 Oxygen Flow Rate 0 03/27/18 22:35 Pain Level 0 03/27/18 10:52 Comment 03/27/18 09:19 Intake & Output 03/27/18 03/27/18 03/28/18 11:59 23:59 11:59 Intake Total 1066.667 / 3300.000 2233.333 / 3300.000 1150 / 1150 Output Total 300 / 625 325 / 625 500 / 500 Balance 766.667 / 2675.000 1908.333 / 2675.000 650 / 650 Weight 44.5 kg Intake: IV 1066.667 / 3060.000 1993.333 / 3060.000 1000 / 1000 Oral 240 / 240 150 / 150 Output: Urine 300 / 625 325 / 625 500 / 500 Other: Urine Color Yellow Dark Lizabeth Light Lizabeth Urine Appearance Clear Clear Comment patient is putting out clear yellow urine bladder scanned earlier for 0 Emesis Description None Laboratory Results WBC 6.59 k/cumm (4.4-10.8) D 03/28/18 06:30 RBC 3.56 m/cumm (4.00-5.20) L 03/28/18 06:30 Hgb 10.7 g/dL (12.0-15.5) L 03/28/18 06:30 Hct 32.7 % (36.0-46.0) L 03/28/18 06:30 MCV 91.9 fL (80-95) 03/28/18 06:30 MCH 30.1 pg (27.0-33.0) 03/28/18 06:30 MCHC 32.7 g/dL (32.0-36.0) 03/28/18 06:30 RDW 14.0 % (11.7-14.6) 03/28/18 06:30 Plt Count 181 x1000/uL (130-400) 03/28/18 06:30 MPV 10.8 fL (8.0-11.0) 03/28/18 06:30 Immature Gran % 0.3 03/28/18 06:30 Neutrophils % 81.4 03/28/18 06:30 Lymphocytes % 6.4 03/28/18 06:30 Monocytes % 11.1 03/28/18 06:30 Eosinophils % 0.6 03/28/18 06:30 Basophils % 0.2 03/28/18 06:30 Absolute Neutrophils 5.36 k/cumm (1.2-6.7) 03/28/18 06:30 Absolute Lymphocytes 0.42 k/cumm (1.2-3.4) L 03/28/18 06:30 Absolute Monocytes 0.73 k/cumm (0.11-0.7) H 03/28/18 06:30 Absolute Eosinophils 0.04 k/cumm (0.0-0.7) 03/28/18 06:30 Absolute Basophils 0.01 k/cumm (0.0-0.2) 03/28/18 06:30 PT 9.4 sec (9.3-11.0) 03/26/18 20:00 INR 0.9 (0.9-1.1) 03/26/18 20:00 APTT 32.0 sec (21.0-31.4) H 03/26/18 20:00 Sodium 142 mmol/L (136-145) 03/28/18 06:30 Potassium 4.1 mmol/L (3.5-5.1) D 03/28/18 06:30 Chloride 109 mmol/L (98-107) H 03/28/18 06:30 Carbon Dioxide 24.5 mmol/L (21.0-32.0) 03/28/18 06:30 Anion Gap 8.5 mmol/L (3-11) 03/28/18 06:30 BUN 16 mg/dL (7-18) D 03/28/18 06:30 Creatinine 0.69 mg/dL (0.55-1.02) 03/28/18 06:30 Estimated GFR/1.73 m2 >= 60.00 (mL/min/1.73m2) 03/28/18 06:30 Glucose 95 mg/dL (70-100) 03/28/18 06:30 Lactate 0.5 mmol/L (0.6-1.4) L 03/27/18 01:40 Calcium 8.2 mg/dL (8.5-10.1) L 03/28/18 06:30 Magnesium 1.8 mg/dL (1.8-2.4) 03/28/18 06:30 Total Bilirubin 0.5 mg/dL (0.2-1.0) 03/27/18 07:20 AST 18 U/L (15-37) 03/27/18 07:20 ALT 18 U/L (12-78) 03/27/18 07:20 Alkaline Phosphatase 81 U/L (46-116) 03/27/18 07:20 Ammonia < 10 umol/L (11-32) L 03/26/18 20:00 Total Protein 6.1 g/dL (6.4-8.2) L 03/27/18 07:20 Albumin 2.5 g/dL (3.4-5.0) L 03/27/18 07:20 TSH 1.35 uIU/mL (0.358-3.74) 03/26/18 20:00 Urine Color Yellow (Yellow) 03/26/18 20:05 Urine Clarity Sl cloudy 03/26/18 20:05 Urine pH 5.0 (5-8) 03/26/18 20:05 Ur Specific [place] 1.025 (1.005-1.025) 03/26/18 20:05 Urine Protein 100 mg/dL (Negative) H 03/26/18 20:05 Urine Ketones Negative mg/dL (Negative) 03/26/18 20:05 Urine Blood Small (Negative) H 03/26/18 20:05 Urine Nitrite Negative (Negative) 03/26/18 20:05 Urine Bilirubin Negative (Negative) 03/26/18 20:05 Urine Urobilinogen 0.2 EU/dL (Up TO 0.2) 03/26/18 20:05 Ur Leukocyte Esterase Small (Negative) H 03/26/18 20:05 Urine RBC 5-10 (0-2) H 03/26/18 20:05 Urine WBC >50 HPF (0-5) 03/26/18 20:05 Ur Epithelial Cells Negative HPF (Negative) 03/26/18 20:05 Urine Crystals Moderate amorphous HPF (Negative) 03/26/18 20:05 Urine Bacteria Rare HPF (Negative) 03/26/18 20:05 Urine Casts 5-10 fine granular LPF (Negative) 03/26/18 20:05 Urine Mucus Negative (Negative) 03/26/18 20:05 Urine Other Negative (Negative) 03/26/18 20:05 Ur Culture Indicated? Yes 03/26/18 20:05 Urine Glucose Negative mg/dL (Negative) 03/26/18 20:05 Salicylates < 2.8 mg/dL (2.8-20.0) L 03/26/18 20:00 Urine Opiates Screen Negative (Negative) 03/26/18 20:05 Urine Methadone Screen Negative (Negative) 03/26/18 20:05 Ur Barbiturates Screen Negative (Negative) 03/26/18 20:05 Ur Tricyclics Screen Negative (Negative) 03/26/18 20:05 Ur Amphetamines Screen Negative (Negative) 03/26/18 20:05 U Benzodiazepines Scrn Negative (Negative) 03/26/18 20:05 Urine Cocaine Screen Negative (Negative) 03/26/18 20:05 Ur THC Screen Negative (Negative) 03/26/18 20:05 Ethyl Alcohol < 3.0 mg/dL (<3) 03/26/18 20:00
[2018-03-28 09:25] VITALS: O2SAT 98
--- NOTE | 2018-03-28 09:39 | PDOC.CMPRO ---
Care Management Progress Note S/O: Per MD-CM discussion, Ne will be changed to inpatient status from admission. Per Dr. Hgaan and PROGRAM ASSISTANT Grace, Ne's daughter has plans to euthanize Ne's dogs today-all but one of the eight. Ne reported feeling heart broken, CM validated this feeling as Ne is losing her home, her land and her companions. Ne was rightfully tearful though able to regulate herself appropriately. CM reviewed discharge disposition but told Ne she need not focus on decisions right now and was permitted to mourn for her dogs and process this transition. CM provided supportive listening for some time and will continue to support Ne. A: 72 year old female admitted to [facility] 03/26/18 for Delerium, UTI. P: Ne will discharge home when medically ready per MD. Anticipate patient will discharge to her daughter's home (with/without home health services) vs. SNF for short term recovery. CM will continue to offer support to patient, family, and care team regarding discharge planning and disposition.
--- NOTE | 2018-03-28 10:40 | PT.INIE ---
Date of service: 03/28/18 Time of Service: 10:15 PT Notes Inpatient Physical Therapy Evaluation Date: 03/28/18 Referring Doctor: Ayden Vuong MD PT Orders: PT CONSULT: Evaluate and Treat Precautions: Standard, dementia Patient Profile/Admitting Diagnosis: Orders received for this 72-year-old patient admitted due to recent confusion, weakness, unsteadiness of gait at home. Patient was brought to the emergency room by her daughter who complained that patient was having difficulty getting out of bed and appeared to be more confused than her baseline level patient does have a history of dementia. Upon arrival to the hospital she was noted to have right lower quadrant pain and initial differential diagnosis was that there was possible appendicitis. After studies it was revealed that patient has calculi of the kidney and ureter. A temporary stent has been placed for drainage and patient will most likely have surgery in the future and she has been admitted for stabilization. PMHX: According to patient's friend she has historically been very healthy having only an issue with dementia Social History/Home Situation: Patient lives locally in the [facility] she lives with her daughter who works at the [employer] [facility] [place] Equipment Owned/DME: Patient has no equipment utilized at baseline Subjective: Patient states she is very confused as to why she has all this medical line attached to her Objective: Confused female who appears of stated age and possibly slightly younger lying down in bed head of bed to 30 degrees she has Ramos catheter, IV line in place to the right upper extremity Mental Status: Confused but appropriate Pain: 0/10 ROM: Right Upper Extremity: WFL Left Upper Extremity: WFL Right Lower Extremity: WFL Left Lower Extremity: WFL Strength: Right Upper Extremity: Globally 4+/5 Left Upper Extremity: Globally 4+/5 Right Lower Extremity: Globally 4+/5 Left Lower Extremity: Globally 4+/5 Bed Mobility/Transfers: Min Assist Supine-sit: HOB to 45 Min A Sit-stand: Min A Stand-sit: Min A Gait: Patient ambulates with Min Assist free of assistive device but notable ataxia in gait and FWW has been issued Balance: Static Sitting: Good Dynamic Sitting: Good Static Standing: Fair Dynamic Standing: Poor Special Tests: Mobility Limitations Standardized Measure [facility] AM-PAC 6 clicks Basic Mobility Inpatient Short Form: Raw Score: 15 Standardized Score: 39.45 CMS Score: 57.70 CMS Modifier: CK Informed Consent/Education: Patient instructed in purpose of PT consult and plan of care. ASSESSMENT: Patient is a 72-year-old female with a history of good physical health but also dementia Admitted with diagnosis of renal and ureter calculi also recent onset of increased confusion and unsteadiness in gait Patient presents with the following impairment level findings: Assistance needed for all transfers, unsteadiness in gait and decreased ambulation tolerance, decreased strength through the upper and lower extremities Pt will benefit from skilled therapy intervention in order to remediate her functional limtations and restore patient to a more appropriate and stable functional level. Impairments are contributing to the following functional limitations: AMPAC score CMS Score: 57.57 % Patient is assessed as a moderate complexity initial evaluation 18867 based on the following: History: see above Examination: see above Presentation: Evolving Decision Making: Moderate based on the impact score of 57.57% Goals: Goals X1 week 1. Supine-Sit Independent 2. Sit-Supine Independent 3. Sit-Stand Independent 4. Stand-Sit Independent 5. Bed-Chair Independent 6. Gait with least restrictive assistive device up to 50 feet and supervision only 7: Independent in Home program Plan of Care/Treatment Plan: 1-2x/day, 7 days/week x 1 week. Plan of care has been reviewed with the SALES INCENTIVE ANALYST providing the service under Physical Therapy direction. Initiate Physical Therapy intervention for strengthening, bed mobility, transfers, gait, stairs, balance training, use of assistive device. DISCHARGE RECOMMENDATIONS: To home in the care of her daughter once medically stable TREATMENT CODE/TIME: Moderate complexity initial evaluation [id number] time of treatment 1015am total treatment 15 minutes G Codes mobility walking moving around GP?[id number]?CK with a goal of GP?[id number]?CJ
--- NOTE | 2018-03-28 10:44 | IN_ITS ---
Date of service: 03/28/18 Time of Service: 10:15 PT Notes Inpatient Physical Therapy Evaluation Date: 03/28/18 Referring Doctor: Ayden Vuong MD PT Orders: PT CONSULT: Evaluate and Treat Precautions: Standard, dementia Patient Profile/Admitting Diagnosis: Orders received for this 72-year-old patient admitted due to recent confusion, weakness, unsteadiness of gait at home. Patient was brought to the emergency room by her daughter who complained that patient was having difficulty getting out of bed and appeared to be more confused than her baseline level patient does have a history of dementia. Upon arrival to the hospital she was noted to have right lower quadrant pain and initial differential diagnosis was that there was possible appendicitis. After studies it was revealed that patient has calculi of the kidney and ureter. A temporary stent has been placed for drainage and patient will most likely have surgery in the future and she has been admitted for stabilization. PMHX: According to patient's friend she has historically been very healthy having only an issue with dementia Social History/Home Situation: Patient lives locally in the [facility] she lives with her daughter who works at the [employer] [facility] [place] Equipment Owned/DME: Patient has no equipment utilized at baseline Subjective: Patient states she is very confused as to why she has all this medical line attached to her Objective: Confused female who appears of stated age and possibly slightly younger lying down in bed head of bed to 30 degrees she has Ramos catheter, IV line in place to the right upper extremity Mental Status: Confused but appropriate Pain: 0/10 ROM: Right Upper Extremity: WFL Left Upper Extremity: WFL Right Lower Extremity: WFL Left Lower Extremity: WFL Strength: Right Upper Extremity: Globally 4+/5 Left Upper Extremity: Globally 4+/5 Right Lower Extremity: Globally 4+/5 Left Lower Extremity: Globally 4+/5 Bed Mobility/Transfers: Min Assist Supine-sit: HOB to 45 Min A Sit-stand: Min A Stand-sit: Min A Gait: Patient ambulates with Min Assist free of assistive device but notable ataxia in gait and FWW has been issued Balance: Static Sitting: Good Dynamic Sitting: Good Static Standing: Fair Dynamic Standing: Poor Special Tests: Mobility Limitations Standardized Measure [facility] AM-PAC 6 clicks Basic Mobility Inpatient Short Form: Raw Score: 15 Standardized Score: 39.45 CMS Score: 57.70 CMS Modifier: CK Informed Consent/Education: Patient instructed in purpose of PT consult and plan of care. ASSESSMENT: Patient is a 72-year-old female with a history of good physical health but also dementia Admitted with diagnosis of renal and ureter calculi also recent onset of increased confusion and unsteadiness in gait Patient presents with the following impairment level findings: Assistance needed for all transfers, unsteadiness in gait and decreased ambulation tolerance, decreased strength through the upper and lower extremities Pt will benefit from skilled therapy intervention in order to remediate her functional limtations and restore patient to a more appropriate and stable functional level. Impairments are contributing to the following functional limitations: AMPAC score CMS Score: 57.57 % Patient is assessed as a moderate complexity initial evaluation [id number] based on the following: History: see above Examination: see above Presentation: Evolving Decision Making: Moderate based on the impact score of 57.57% Goals: Goals X1 week 1. Supine-Sit Independent 2. Sit-Supine Independent 3. Sit-Stand Independent 4. Stand-Sit Independent 5. Bed-Chair Independent 6. Gait with least restrictive assistive device up to 50 feet and supervision only 7: Independent in Home program Plan of Care/Treatment Plan: 1-2x/day, 7 days/week x 1 week. Plan of care has been reviewed with the RIVER TRANSPORTATION WORKER providing the service under Physical Therapy direction. Initiate Physical Therapy intervention for strengthening, bed mobility, transfers, gait, stairs, balance training, use of assistive device. DISCHARGE RECOMMENDATIONS: To home in the care of her daughter once medically stable TREATMENT CODE/TIME: Moderate complexity initial evaluation 17523 time of treatment 1015am total treatment 15 minutes G Codes mobility walking moving around GP?[id number]?CK with a goal of GP?[id number]?CJ
--- NOTE | 2018-03-28 14:13 | PGE_ITS ---
Date of Service Date of service: 03/28/18 Time of Service: 14:23 Assessment and Plan (1) Bacteremia: Start date: 03/28/18 Start time: 14:14 Current visit: Yes Status: Acute Waiting final blood culture results at this time. both blood and urine are growing gram-negative. Afibrile at this time with WBC of 6.59 (2) Acute kidney injury (nontraumatic): Start date: 03/28/18 Start time: 14:15 Current visit: Yes Status: Acute Resolved will continue to monitor kidney function. Labs back to baseline. (3) Complicated UTI (urinary tract infection): Start date: 03/28/18 Start time: 14:15 Current visit: Yes Status: Acute Patel catheter in place strict I&O, remains on antbx therapy secondary to stone status post cystorscopy with stent. right urethral stent placed by urology. Pain has resolved. (4) Delirium due to another medical condition: Start date: 03/28/18 Start time: 14:17 Current visit: Yes Status: Acute Continue to monitor mental status, patient seems to be at baseline at this time. Able to recall facts and AAOx3 (5) Hydronephrosis concurrent with and due to calculi of kidney and ureter: Start date: 03/28/18 Start time: 14:19 Current visit: Yes Status: Acute Urology following patient. Pain is resolving, and catheter draining yellow urine. (6) DVT (deep venous thrombosis): Start date: 03/28/18 Start time: 14:20 Current visit: Yes Status: Chronic SCDs on while in bed. Subjective Patient reports: pain is less and other Interval history since last seen: 72 yo woman who has lived alone x 20 years, has 8 dogs, was bed bound x 48hrs +/- prior to admission for UTI, obstructing kidney stones, urethral stent placement, malnutrition, weakness. Has Mild Cognitive Impairment. Does not use allopathic medications. 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 Us es herbal medications only. Last hospitalization was when her daughter was born 50 years ago. Today patient is distraught, tearful when entering room. Pt daughter Inocencia just informed patient that 4 out of 8 dogs are getting euthanized at 2 today. Pt not quite present for exam. 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 When asked about her own physical health, patient states, pain is gone now in legs but the pain in my heart continues, and focuses back to her dogs. There is concern for physical well being at this time based on emotional stress. Pt daughter would like her to be placed at [facility] in [place] close to her with transition from there to her home. Pt seems concerned with this as she questions where will I stay. Concerned that this will put daughter out and she will be a burden. Pt will benefit from PT and emotional support at this time. Exam Const General: cooperative, anxious, disheveled and other Other: distraught and tearful HENMT Head: normal to inspection Eyes General: appearance normal, both eyes and all related structures Pupils: PERRL Neck Neck: normal visual inspection and no lymphadenopathy Lymphatic: no lymphadenopathy noted Chest Chest: normal inspection of the chest Resp Effort & Inspection: normal respiratory effort Auscultation: clear to auscultation bilaterally Cardio Jugular venous pressure: no JVD Palpation: normal PMI Rate: regular rate Rhythm: regular rhythm GI Inspection: normal to inspection Palpation: no hepatosplenomegaly Auscultation: normal bowel sounds Other: patel draining yellow clear urine Skin General skin exam: no rashes or lesions noted Wounds: no wounds Neuro General: alert, awake and oriented x3 Extrem General: normal to inspection Psych Appearance: grossly normal Speech and Movement: speech and movement normal Attitude: cooperative Objective Objective Clinical Data: Abnormal lab results 03/28/18 03/28/18 Range/Units 06:30 06:30 RBC 3.56 L (4.00-5.20) m/cumm Hgb 10.7 L (12.0-15.5) g/dL Hct 32.7 L (36.0-46.0) % Absolute Lymphocytes 0.42 L (1.2-3.4) k/cumm Absolute Monocytes 0.73 H (0.11-0.7) k/cumm Chloride 109 H (98-107) mmol/L Calcium 8.2 L (8.5-10.1) mg/dL Vital Signs Temperature 36.8 C 03/28/18 08:00 Temperature Source Tympanic 03/28/18 08:00 Pulse 69 03/28/18 08:00 Pulse Rhythm Regular 03/28/18 12:55 Respiratory Rate 20 03/28/18 08:00 Respiratory Effort 03/28/18 12:55 Respiratory Depth Normal 03/28/18 12:55 Respiratory Pattern Normal 03/28/18 12:55 Blood Pressure 138/75 03/28/18 08:00 Blood Pressure Position Sitting 03/26/18 19:47 Pulse Oximetry 98 03/28/18 09:25 Respiratory End-tidal CO2 29 03/27/18 10:52 Oxygen Delivery Method Room Air 03/28/18 09:25 Oxygen Flow Rate 0 03/28/18 09:25 Pain Level 0 03/27/18 10:52 Comment 03/27/18 09:19 Intake & Output 03/27/18 03/28/18 03/28/18 23:59 11:59 23:59 Intake Total 2233.333 / 3300.000 1150 / 1150 Output Total 325 / 625 1250 / 1250 Balance 1908.333 / 2675.000 -100 / -100 Intake: IV 1993.333 / 3060.000 1000 / 1000 Oral 240 / 240 150 / 150 Output: Urine 325 / 625 1250 / 1250 Other: Urine Color Dark Lizabeth Yellow Urine Appearance Clear Clear Comment bladder scanned earlier for 0 Stool Size Large Stool Characteristics Soft Formed Laboratory Results WBC 6.59 k/cumm (4.4-10.8) D 03/28/18 06:30 RBC 3.56 m/cumm (4.00-5.20) L 03/28/18 06:30 Hgb 10.7 g/dL (12.0-15.5) L 03/28/18 06:30 Hct 32.7 % (36.0-46.0) L 03/28/18 06:30 MCV 91.9 fL (80-95) 03/28/18 06:30 MCH 30.1 pg (27.0-33.0) 03/28/18 06:30 MCHC 32.7 g/dL (32.0-36.0) 03/28/18 06:30 RDW 14.0 % (11.7-14.6) 03/28/18 06:30 Plt Count 181 x1000/uL (130-400) 03/28/18 06:30 MPV 10.8 fL (8.0-11.0) 03/28/18 06:30 Immature Gran % 0.3 03/28/18 06:30 Neutrophils % 81.4 03/28/18 06:30 Lymphocytes % 6.4 03/28/18 06:30 Monocytes % 11.1 03/28/18 06:30 Eosinophils % 0.6 03/28/18 06:30 Basophils % 0.2 03/28/18 06:30 Absolute Neutrophils 5.36 k/cumm (1.2-6.7) 03/28/18 06:30 Absolute Lymphocytes 0.42 k/cumm (1.2-3.4) L 03/28/18 06:30 Absolute Monocytes 0.73 k/cumm (0.11-0.7) H 03/28/18 06:30 Absolute Eosinophils 0.04 k/cumm (0.0-0.7) 03/28/18 06:30 Absolute Basophils 0.01 k/cumm (0.0-0.2) 03/28/18 06:30 PT 9.4 sec (9.3-11.0) 03/26/18 20:00 INR 0.9 (0.9-1.1) 03/26/18 20:00 APTT 32.0 sec (21.0-31.4) H 03/26/18 20:00 Sodium 142 mmol/L (136-145) 03/28/18 06:30 Potassium 4.1 mmol/L (3.5-5.1) D 03/28/18 06:30 Chloride 109 mmol/L (98-107) H 03/28/18 06:30 Carbon Dioxide 24.5 mmol/L (21.0-32.0) 03/28/18 06:30 Anion Gap 8.5 mmol/L (3-11) 03/28/18 06:30 BUN 16 mg/dL (7-18) D 03/28/18 06:30 Creatinine 0.69 mg/dL (0.55-1.02) 03/28/18 06:30 Estimated GFR/1.73 m2 >= 60.00 (mL/min/1.73m2) 03/28/18 06:30 Glucose 95 mg/dL (70-100) 03/28/18 06:30 Lactate 0.5 mmol/L (0.6-1.4) L 03/27/18 01:40 Calcium 8.2 mg/dL (8.5-10.1) L 03/28/18 06:30 Magnesium 1.8 mg/dL (1.8-2.4) 03/28/18 06:30 Total Bilirubin 0.5 mg/dL (0.2-1.0) 03/27/18 07:20 AST 18 U/L (15-37) 03/27/18 07:20 ALT 18 U/L (12-78) 03/27/18 07:20 Alkaline Phosphatase 81 U/L (46-116) 03/27/18 07:20 Ammonia < 10 umol/L (11-32) L 03/26/18 20:00 Total Protein 6.1 g/dL (6.4-8.2) L 03/27/18 07:20 Albumin 2.5 g/dL (3.4-5.0) L 03/27/18 07:20 TSH 1.35 uIU/mL (0.358-3.74) 03/26/18 20:00 Urine Color Yellow (Yellow) 03/26/18 20:05 Urine Clarity Sl cloudy 03/26/18 20:05 Urine pH 5.0 (5-8) 03/26/18 20:05 Ur Specific [place] 1.025 (1.005-1.025) 03/26/18 20:05 Urine Protein 100 mg/dL (Negative) H 03/26/18 20:05 Urine Ketones Negative mg/dL (Negative) 03/26/18 20:05 Urine Blood Small (Negative) H 03/26/18 20:05 Urine Nitrite Negative (Negative) 03/26/18 20:05 Urine Bilirubin Negative (Negative) 03/26/18 20:05 Urine Urobilinogen 0.2 EU/dL (Up TO 0.2) 03/26/18 20:05 Ur Leukocyte Esterase Small (Negative) H 03/26/18 20:05 Urine RBC 5-10 (0-2) H 03/26/18 20:05 Urine WBC >50 HPF (0-5) 03/26/18 20:05 Ur Epithelial Cells Negative HPF (Negative) 03/26/18 20:05 Urine Crystals Moderate amorphous HPF (Negative) 03/26/18 20:05 Urine Bacteria Rare HPF (Negative) 03/26/18 20:05 Urine Casts 5-10 fine granular LPF (Negative) 03/26/18 20:05 Urine Mucus Negative (Negative) 03/26/18 20:05 Urine Other Negative (Negative) 03/26/18 20:05 Ur Culture Indicated? Yes 03/26/18 20:05 Urine Glucose Negative mg/dL (Negative) 03/26/18 20:05 Salicylates < 2.8 mg/dL (2.8-20.0) L 03/26/18 20:00 Urine Opiates Screen Negative (Negative) 03/26/18 20:05 Urine Methadone Screen Negative (Negative) 03/26/18 20:05 Ur Barbiturates Screen Negative (Negative) 03/26/18 20:05 Ur Tricyclics Screen Negative (Negative) 03/26/18 20:05 Ur Amphetamines Screen Negative (Negative) 03/26/18 20:05 U Benzodiazepines Scrn Negative (Negative) 03/26/18 20:05 Urine Cocaine Screen Negative (Negative) 03/26/18 20:05 Ur THC Screen Negative (Negative) 03/26/18 20:05 Ethyl Alcohol < 3.0 mg/dL (<3) 03/26/18 20:00
[2018-03-28 16:39] VITALS: BP 162/87; PULSE 73; RESP 17; TEMP 37.6; O2SAT 99
[2018-03-28] MEDS: Acetaminophen Solution 650 MG/20.3 ML CUP PO (20:48)
[2018-03-28] MEDS: Normal Saline Flush 10 ML SYR IVP (20:49)
[2018-03-28] MEDS: Melatonin 3 MG TAB PO (20:49)
[2018-03-29] VITALS (7 sets, daily range): BP systolic 145–172; BP diastolic 65–80; PULSE 68–79; RESP 17–22; TEMP 36.2–37.3; O2SAT 97–99
[2018-03-29] MEDS: POTASSIUM CHLORIDE/0.9% NACL 1,000 ML 100 MEQ IV ×2 (04:55→18:33)
[2018-03-29] MEDS: MORPHine 10 MG/ML VIAL IVP ×4 (05:00→22:17)
--- NOTE | 2018-03-29 06:52 | PCPN_ITS ---
Date of service: 03/28/18 Time of Service: 12:28 Assessment and Plan (1) Goals of care, counseling/discussion: Current visit: No Status: Acute Would like to be able to stay in her own home, but too much for her. Has 53 acres needing upkeep and care. ALso has had 8 dogs. Hasn't lived with her daughter or seen her regularly for years. Plan is for her to move in with her daughter and son-in-law in [place]. They live in the city. [place] of her adult life. Worried about being away from nature/wildness. Not clear how the transition to daughter's house will go. Initial plan was for Bala to be discharged from [facility] to rehab in the [place], [place] area. However, initial PT note indicates that Bala may not need Rehab, but could transition to a home setting. The loss of her 7 dogs, (daughter planning on keeping one) and loss of her independence and home may prove too much for Bala. Concerned that this transition will not go well for her. She doesn't want to go to a rehab. Advised that if she wants to avoid that, she needs to work as hard as she can with PT. (2) Palliative care patient: Current visit: No Status: Acute IF she doesn't move to [place] with her daughter, will need lots of services. DOes not usually seek allopathic care. No PCP in the area. I am worried about her physical and mental health half-way. (3) Delirium due to another medical condition: Current visit: Yes Status: Acute Clearing. Much better today than yesterday, and significantly better than she was on admission. DOes have some cognitive impairment at baseline, but hard to tell how much is due to her anxiety/grief. Subjective Patient reports: pain is less and tolerating liquids well Interval history since last seen: Bala worked with PT this am. Used a walker. Unsteady but able to walk. Weak but improving. She is more hydrated now. Less confused. However, she is very emotionally fragile. Daughter Inocencia has contacted vet to put down all but one of her dogs. (She has 8) Unable to find shelters in the area that can take any of them now. Several staff members (myself included) have checked with friends, etc. to take them. No one able to. June distraught. Plan initially had been for June to go to rehab for 3 weeks or so prior to moving in with daughter. Strained relationship, though pt and her daughter trying their best. Was incontinent of stool today, not sure why. June very embarrassed by this. Exam Const General: in distress, anxious and frail appearing Nutritional Appearance: thin Orientation: alert, awake, oriented to person and oriented to place HENNM Head: normal to inspection Ears: hearing grossly normal bilaterally General nose exam: external nose normal Teeth and gingiva: dentures (not fitting well lately due to weight loss) Eyes General: appearance normal, both eyes and all related structures Neck Neck: no lymphadenopathy Resp Effort & Inspection: normal respiratory effort and able to speak in complete sentences Auscultation: clear to auscultation bilaterally Cardio Jugular venous pressure: no JVD Rate: regular rate Rhythm: regular rhythm Heart Sounds: S1 normal and S2 normal GI Inspection: scaphoid Palpation: soft Auscultation: normal bowel sounds Skin General skin exam: dry skin Trauma: no lacerations or abrasions Neuro General: alert, awake and unable to assess gait (was up with PT earlier; see their note) Cranial Nerves: hearing normal Cognition: abnormal cognition (some cognitive deficits; ? due to anxiety around her illness/dogs?) Speech: speech normal Gait: gait assisted Method: walker Extrem General: muscle atrophy Psych Appearance: disheveled Speech and Movement: agitated (about her dogs) Mood: anxious mood and dysthymic mood Affect: sad and anxious affect Attitude: cooperative Thought Process: impoverished Insight: fair Judgment: fair Other: has lived alone and cared for herself for many years not close to her daughter usually daughter has stepped in to help last 6 months as mother/Bala has been failing Objective Objective Clinical Data: Abnormal lab results 03/28/18 03/28/18 Range/Units 06:30 06:30 RBC 3.56 L (4.00-5.20) m/cumm Hgb 10.7 L (12.0-15.5) g/dL Hct 32.7 L (36.0-46.0) % Absolute Lymphocytes 0.42 L (1.2-3.4) k/cumm Absolute Monocytes 0.73 H (0.11-0.7) k/cumm Chloride 109 H (98-107) mmol/L Calcium 8.2 L (8.5-10.1) mg/dL Vital Signs Temperature 98.2 F 03/29/18 01:47 Temperature Source Tympanic 03/29/18 01:47 Pulse 68 03/29/18 01:47 Pulse Rhythm Regular 03/28/18 21:00 Respiratory Rate 20 03/29/18 01:47 Respiratory Effort 03/28/18 21:00 Respiratory Depth Normal 03/28/18 21:00 Respiratory Pattern Normal 03/28/18 21:00 Blood Pressure 145/80 H 03/29/18 01:47 Blood Pressure Position Sitting 03/26/18 19:47 Pulse Oximetry 99 03/29/18 01:47 Respiratory End-tidal CO2 29 03/27/18 10:52 Oxygen Delivery Method Room Air 03/29/18 01:47 Oxygen Flow Rate 0 03/29/18 01:47 Pain Level 0 03/27/18 10:52 Comment 03/27/18 09:19 Intake & Output 03/28/18 03/28/18 03/29/18 11:59 23:59 11:59 Intake Total 1150 / 2630 1480 / 2630 1491.667 / 1491.667 Output Total 1250 / 2000 750 / 2000 1450 / 1450 Balance -100 / 630 730 / 630 41.667 / 41.667 Intake: IV 1000 / 1999 1000 / 2000 991.667 / 991.667 Oral 150 / 630 480 / 630 500 / 500 Output: Urine 1250 / 2000 750 / 2000 1450 / 1450 Other: Urine Color Yellow Yellow Pale Yellow Urine Appearance Clear Clear Clear Stool Size Large Small Stool Characteristics Soft Formed Laboratory Results WBC 6.59 k/cumm (4.4-10.8) D 03/28/18 06:30 RBC 3.56 m/cumm (4.00-5.20) L 03/28/18 06:30 Hgb 10.7 g/dL (12.0-15.5) L 03/28/18 06:30 Hct 32.7 % (36.0-46.0) L 03/28/18 06:30 MCV 91.9 fL (80-95) 03/28/18 06:30 MCH 30.1 pg (27.0-33.0) 03/28/18 06:30 MCHC 32.7 g/dL (32.0-36.0) 03/28/18 06:30 RDW 14.0 % (11.7-14.6) 03/28/18 06:30 Plt Count 181 x1000/uL (130-400) 03/28/18 06:30 MPV 10.8 fL (8.0-11.0) 03/28/18 06:30 Immature Gran % 0.3 03/28/18 06:30 Neutrophils % 81.4 03/28/18 06:30 Lymphocytes % 6.4 03/28/18 06:30 Monocytes % 11.1 03/28/18 06:30 Eosinophils % 0.6 03/28/18 06:30 Basophils % 0.2 03/28/18 06:30 Absolute Neutrophils 5.36 k/cumm (1.2-6.7) 03/28/18 06:30 Absolute Lymphocytes 0.42 k/cumm (1.2-3.4) L 03/28/18 06:30 Absolute Monocytes 0.73 k/cumm (0.11-0.7) H 03/28/18 06:30 Absolute Eosinophils 0.04 k/cumm (0.0-0.7) 03/28/18 06:30 Absolute Basophils 0.01 k/cumm (0.0-0.2) 03/28/18 06:30 PT 9.4 sec (9.3-11.0) 03/26/18 20:00 INR 0.9 (0.9-1.1) 03/26/18 20:00 APTT 32.0 sec (21.0-31.4) H 03/26/18 20:00 Sodium 142 mmol/L (136-145) 03/28/18 06:30 Potassium 4.1 mmol/L (3.5-5.1) D 03/28/18 06:30 Chloride 109 mmol/L (98-107) H 03/28/18 06:30 Carbon Dioxide 24.5 mmol/L (21.0-32.0) 03/28/18 06:30 Anion Gap 8.5 mmol/L (3-11) 03/28/18 06:30 BUN 16 mg/dL (7-18) D 03/28/18 06:30 Creatinine 0.69 mg/dL (0.55-1.02) 03/28/18 06:30 Estimated GFR/1.73 m2 >= 60.00 (mL/min/1.73m2) 03/28/18 06:30 Glucose 95 mg/dL (70-100) 03/28/18 06:30 Lactate 0.5 mmol/L (0.6-1.4) L 03/27/18 01:40 Calcium 8.2 mg/dL (8.5-10.1) L 03/28/18 06:30 Magnesium 1.8 mg/dL (1.8-2.4) 03/28/18 06:30 Total Bilirubin 0.5 mg/dL (0.2-1.0) 03/27/18 07:20 AST 18 U/L (15-37) 03/27/18 07:20 ALT 18 U/L (12-78) 03/27/18 07:20 Alkaline Phosphatase 81 U/L (46-116) 03/27/18 07:20 Ammonia < 10 umol/L (11-32) L 03/26/18 20:00 Total Protein 6.1 g/dL (6.4-8.2) L 03/27/18 07:20 Albumin 2.5 g/dL (3.4-5.0) L 03/27/18 07:20 TSH 1.35 uIU/mL (0.358-3.74) 03/26/18 20:00 Urine Color Yellow (Yellow) 03/26/18 20:05 Urine Clarity Sl cloudy 03/26/18 20:05 Urine pH 5.0 (5-8) 03/26/18 20:05 Ur Specific [place] 1.025 (1.005-1.025) 03/26/18 20:05 Urine Protein 100 mg/dL (Negative) H 03/26/18 20:05 Urine Ketones Negative mg/dL (Negative) 03/26/18 20:05 Urine Blood Small (Negative) H 03/26/18 20:05 Urine Nitrite Negative (Negative) 03/26/18 20:05 Urine Bilirubin Negative (Negative) 03/26/18 20:05 Urine Urobilinogen 0.2 EU/dL (Up TO 0.2) 03/26/18 20:05 Ur Leukocyte Esterase Small (Negative) H 03/26/18 20:05 Urine RBC 5-10 (0-2) H 03/26/18 20:05 Urine WBC >50 HPF (0-5) 03/26/18 20:05 Ur Epithelial Cells Negative HPF (Negative) 03/26/18 20:05 Urine Crystals Moderate amorphous HPF (Negative) 03/26/18 20:05 Urine Bacteria Rare HPF (Negative) 03/26/18 20:05 Urine Casts 5-10 fine granular LPF (Negative) 03/26/18 20:05 Urine Mucus Negative (Negative) 03/26/18 20:05 Urine Other Negative (Negative) 03/26/18 20:05 Ur Culture Indicated? Yes 03/26/18 20:05 Urine Glucose Negative mg/dL (Negative) 03/26/18 20:05 Salicylates < 2.8 mg/dL (2.8-20.0) L 03/26/18 20:00 Urine Opiates Screen Negative (Negative) 03/26/18 20:05 Urine Methadone Screen Negative (Negative) 03/26/18 20:05 Ur Barbiturates Screen Negative (Negative) 03/26/18 20:05 Ur Tricyclics Screen Negative (Negative) 03/26/18 20:05 Ur Amphetamines Screen Negative (Negative) 03/26/18 20:05 U Benzodiazepines Scrn Negative (Negative) 03/26/18 20:05 Urine Cocaine Screen Negative (Negative) 03/26/18 20:05 Ur THC Screen Negative (Negative) 03/26/18 20:05 Ethyl Alcohol < 3.0 mg/dL (<3) 03/26/18 20:00
[2018-03-29 07:10] LABS: Anion Gap 9.3 mmol/L (3-11); BUN 9 mg/dL (7-18); CO2 24.7 mmol/L (21.0-32.0); CREATININE 0.68 mg/dL (0.55-1.02); Calcium 8.3 mg/dL (8.5-10.1); Chloride 110 mmol/L (98-107); Glucose 89 mg/dL (70-100); Magnesium 1.4 mg/dL (1.8-2.4); Potassium 3.6 mmol/L (3.5-5.1); Sodium 144 mmol/L (136-145)
[2018-03-29 07:12] LABS: Abs Immature Grans 0.03 k/cumm (0.0-0.09); Absolute Basophil Count 0.02 k/cumm (0.0-0.2); Absolute Eosinophil Count 0.07 k/cumm (0.0-0.7); Absolute Lymphocyte Count 0.42 k/cumm (1.2-3.4); Absolute Monocyte Count 0.94 k/cumm (0.11-0.7); Absolute Neutrophil Count 5.87 k/cumm (1.2-6.7); Basophils % 0.3; HCT 34.1 % (36.0-46.0); HGB 11.1 g/dL (12.0-15.5); Immature Grans % 0.4; Lymphocytes % 5.7; Mean Corp. HGB Concentration 32.6 g/dL (32.0-36.0); Mean Corpuscular Hemoglobin 29.9 pg (27.0-33.0); Mean Corpuscular Volume 91.9 fL (80-95); Monocytes % 12.8; Neutrophils % 79.8; Platelet Count 203 x1000/uL (130-400); RBC 3.71 m/cumm (4.00-5.20); White Blood Cell Count 7.35 k/cumm (4.4-10.8)
[2018-03-29] MEDS: Potassium Chloride 20 MEQ TABCR 40 MEQ PO ×2 (08:06→20:09)
[2018-03-29] MEDS: Enoxaparin 40 MG/0.4 ML SYR SC (08:06)
[2018-03-29] MEDS: MAGNESIUM SULFATE 4 GM/100 ML BAG IVPB (08:37)
--- NOTE | 2018-03-29 10:05 | PGE_ITS ---
Date of Service Date of service: 03/29/18 Time of Service: 10:09 Assessment and Plan (1) Hypomagnesemia: Start date: 03/29/18 Start time: 10:07 Current visit: Yes Status: Acute Pt mag level 1.4 today, repeleted and will continue to monitor. replete electrolytes as needed. (2) Bacteremia: Start date: 03/29/18 Start time: 09:59 Current visit: Yes Status: Acute urine cx showing E.coli gram negative, blood cx-gram negative. Will d/c rocephin IV, start cipro po, will monitor WBC and temp. (3) Acute kidney injury (nontraumatic): Start date: 03/29/18 Start time: 10:03 Current visit: Yes Status: Acute Resolved will continue to monitor kidney function. Labs back to baseline. (4) Complicated UTI (urinary tract infection): Start date: 03/29/18 Start time: 10:03 Current visit: Yes Status: Acute Ramos catheter in place strict I&O, switched to PO antbx r secondary to stone status post cystoscopy with stent. right urethral stent placed by urology. Follow up with urology on outpatient for stone. Pain has resolved. (5) Leg cramping: Start date: 03/29/18 Start time: 10:06 Current visit: Yes Status: Acute Could be due to low mag level or being in bed for longer duration. Gave mag run and will have PT work with patient to get OOB and sit in chair. (6) Delirium due to another medical condition: Start date: 03/29/18 Start time: 10:04 Current visit: Yes Status: Acute Continue to monitor mental status, patient seems to be at baseline at this time. Able to recall facts and AAOx3 (7) Hydronephrosis concurrent with and due to calculi of kidney and ureter: Start date: 03/29/18 Start time: 10:05 Current visit: Yes Status: Acute Urology following patient. Pain is resolving, and catheter draining clear yellow urine. (8) DVT (deep venous thrombosis): Start date: 03/29/18 Start time: 10:05 Current visit: Yes Status: Chronic SCDs on while in bed. Placed on enoxaprin 40 mg for DVT prophylaxis Subjective Patient reports: feels better and other Interval history since last seen: 72 yo woman who has lived alone x 20 years, has 8 dogs, was bed bound x 48hrs +/- prior to admission for UTI, obstructing kidney stones, urethral stent placement, malnutrition, weakness. Has Mild Cognitive Impairment. Does not use allopathic medications. 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 Last hospitalization was when her daughter was born 50 years ago. Today patient is slightly anxious. Still has a hurting heart. Appeared to be less distraught. Feels better with the exception of having leg cramping. Mag level low, repleteing level now. Will continue to Monitor. Spoke with patient about getting OOB with PT and sitting in Chair, agreeable to getting OOB. Concerned with where she is going after discharge. Explained CM will speak with daughter to form a plan and talk with her about the plan, will speak with urology prior to DC to make sure appt set up with home po antibiotics. Exam Const General: cooperative, anxious, disheveled and other HENMT Head: normal to inspection Eyes General: appearance normal, both eyes and all related structures Pupils: PERRL Neck Neck: normal visual inspection and no lymphadenopathy Lymphatic: no lymphadenopathy noted Chest Chest: normal inspection of the chest Resp Effort & Inspection: normal respiratory effort Auscultation: clear to auscultation bilaterally Cardio Jugular venous pressure: no JVD Palpation: normal PMI Rate: regular rate Rhythm: regular rhythm GI Inspection: normal to inspection Palpation: no hepatosplenomegaly Auscultation: normal bowel sounds Skin General skin exam: no rashes or lesions noted Wounds: no wounds Neuro General: alert, awake and oriented x3 Extrem General: normal to inspection Psych Appearance: grossly normal Speech and Movement: speech and movement normal Attitude: cooperative Objective Objective Clinical Data: Abnormal lab results 03/29/18 03/29/18 Range/Units 06:25 06:25 RBC 3.71 L (4.00-5.20) m/cumm Hgb 11.1 L (12.0-15.5) g/dL Hct 34.1 L (36.0-46.0) % Absolute Lymphocytes 0.42 L (1.2-3.4) k/cumm Absolute Monocytes 0.94 H (0.11-0.7) k/cumm Chloride 110 H (98-107) mmol/L Calcium 8.3 L (8.5-10.1) mg/dL Magnesium 1.4 L (1.8-2.4) mg/dL Vital Signs Temperature 36.8 C 03/29/18 01:47 Temperature Source Tympanic 03/29/18 01:47 Pulse 68 03/29/18 01:47 Pulse Rhythm Regular 03/28/18 21:00 Respiratory Rate 20 03/29/18 01:47 Respiratory Effort 03/28/18 21:00 Respiratory Depth Normal 03/28/18 21:00 Respiratory Pattern Normal 03/28/18 21:00 Blood Pressure 145/80 H 03/29/18 01:47 Blood Pressure Position Sitting 03/26/18 19:47 Pulse Oximetry 99 03/29/18 01:47 Respiratory End-tidal CO2 29 03/27/18 10:52 Oxygen Delivery Method Room Air 03/29/18 01:47 Oxygen Flow Rate 0 03/29/18 01:47 Pain Level 0 03/27/18 10:52 Comment 03/27/18 09:19 Intake & Output 03/28/18 03/28/18 03/29/18 11:59 23:59 11:59 Intake Total 1150 / 2630 1480 / 2630 1491.667 / 1491.667 Output Total 1250 / 2000 750 / 2000 1450 / 1450 Balance -100 / 630 730 / 630 41.667 / 41.667 Intake: IV 1000 / 1999 1000 / 2000 991.667 / 991.667 Oral 150 / 630 480 / 630 500 / 500 Output: Urine 1250 / 1999 750 / 2000 1450 / 1450 Other: Urine Color Yellow Yellow Pale Yellow Urine Appearance Clear Clear Clear Stool Size Large Small Stool Characteristics Soft Formed Laboratory Results WBC 7.35 k/cumm (4.4-10.8) 03/29/18 06:25 RBC 3.71 m/cumm (4.00-5.20) L 03/29/18 06:25 Hgb 11.1 g/dL (12.0-15.5) L 03/29/18 06:25 Hct 34.1 % (36.0-46.0) L 03/29/18 06:25 MCV 91.9 fL (80-95) 03/29/18 06:25 MCH 29.9 pg (27.0-33.0) 03/29/18 06:25 MCHC 32.6 g/dL (32.0-36.0) 03/29/18 06:25 RDW 14.0 % (11.7-14.6) 03/29/18 06:25 Plt Count 203 x1000/uL (130-400) 03/29/18 06:25 MPV 11.0 fL (8.0-11.0) 03/29/18 06:25 Immature Gran % 0.4 03/29/18 06:25 Neutrophils % 79.8 03/29/18 06:25 Lymphocytes % 5.7 03/29/18 06:25 Monocytes % 12.8 03/29/18 06:25 Eosinophils % 1.0 03/29/18 06:25 Basophils % 0.3 03/29/18 06:25 Absolute Neutrophils 5.87 k/cumm (1.2-6.7) 03/29/18 06:25 Absolute Lymphocytes 0.42 k/cumm (1.2-3.4) L 03/29/18 06:25 Absolute Monocytes 0.94 k/cumm (0.11-0.7) H 03/29/18 06:25 Absolute Eosinophils 0.07 k/cumm (0.0-0.7) 03/29/18 06:25 Absolute Basophils 0.02 k/cumm (0.0-0.2) 03/29/18 06:25 PT 9.4 sec (9.3-11.0) 03/26/18 20:00 INR 0.9 (0.9-1.1) 03/26/18 20:00 APTT 32.0 sec (21.0-31.4) H 03/26/18 20:00 Sodium 144 mmol/L (136-145) 03/29/18 06:25 Potassium 3.6 mmol/L (3.5-5.1) 03/29/18 06:25 Chloride 110 mmol/L (98-107) H 03/29/18 06:25 Carbon Dioxide 24.7 mmol/L (21.0-32.0) 03/29/18 06:25 Anion Gap 9.3 mmol/L (3-11) 03/29/18 06:25 BUN 9 mg/dL (7-18) D 03/29/18 06:25 Creatinine 0.68 mg/dL (0.55-1.02) 03/29/18 06:25 Estimated GFR/1.73 m2 >= 60.00 (mL/min/1.73m2) 03/29/18 06:25 Glucose 89 mg/dL (70-100) 03/29/18 06:25 Lactate 0.5 mmol/L (0.6-1.4) L 03/27/18 01:40 Calcium 8.3 mg/dL (8.5-10.1) L 03/29/18 06:25 Magnesium 1.4 mg/dL (1.8-2.4) L 03/29/18 06:25 Total Bilirubin 0.5 mg/dL (0.2-1.0) 03/27/18 07:20 AST 18 U/L (15-37) 03/27/18 07:20 ALT 18 U/L (12-78) 03/27/18 07:20 Alkaline Phosphatase 81 U/L (46-116) 03/27/18 07:20 Ammonia < 10 umol/L (11-32) L 03/26/18 20:00 Total Protein 6.1 g/dL (6.4-8.2) L 03/27/18 07:20 Albumin 2.5 g/dL (3.4-5.0) L 03/27/18 07:20 TSH 1.35 uIU/mL (0.358-3.74) 03/26/18 20:00 Urine Color Yellow (Yellow) 03/26/18 20:05 Urine Clarity Sl cloudy 03/26/18 20:05 Urine pH 5.0 (5-8) 03/26/18 20:05 Ur Specific [place] 1.025 (1.005-1.025) 03/26/18 20:05 Urine Protein 100 mg/dL (Negative) H 03/26/18 20:05 Urine Ketones Negative mg/dL (Negative) 03/26/18 20:05 Urine Blood Small (Negative) H 03/26/18 20:05 Urine Nitrite Negative (Negative) 03/26/18 20:05 Urine Bilirubin Negative (Negative) 03/26/18 20:05 Urine Urobilinogen 0.2 EU/dL (Up TO 0.2) 03/26/18 20:05 Ur Leukocyte Esterase Small (Negative) H 03/26/18 20:05 Urine RBC 5-10 (0-2) H 03/26/18 20:05 Urine WBC >50 HPF (0-5) 03/26/18 20:05 Ur Epithelial Cells Negative HPF (Negative) 03/26/18 20:05 Urine Crystals Moderate amorphous HPF (Negative) 03/26/18 20:05 Urine Bacteria Rare HPF (Negative) 03/26/18 20:05 Urine Casts 5-10 fine granular LPF (Negative) 03/26/18 20:05 Urine Mucus Negative (Negative) 03/26/18 20:05 Urine Other Negative (Negative) 03/26/18 20:05 Ur Culture Indicated? Yes 03/26/18 20:05 Urine Glucose Negative mg/dL (Negative) 03/26/18 20:05 Salicylates < 2.8 mg/dL (2.8-20.0) L 03/26/18 20:00 Urine Opiates Screen Negative (Negative) 03/26/18 20:05 Urine Methadone Screen Negative (Negative) 03/26/18 20:05 Ur Barbiturates Screen Negative (Negative) 03/26/18 20:05 Ur Tricyclics Screen Negative (Negative) 03/26/18 20:05 Ur Amphetamines Screen Negative (Negative) 03/26/18 20:05 U Benzodiazepines Scrn Negative (Negative) 03/26/18 20:05 Urine Cocaine Screen Negative (Negative) 03/26/18 20:05 Ur THC Screen Negative (Negative) 03/26/18 20:05 Ethyl Alcohol < 3.0 mg/dL (<3) 03/26/18 20:00
[2018-03-29] MEDS: Ciprofloxacin 500 MG TAB PO ×2 (10:50→20:08)
--- NOTE | 2018-03-29 10:53 | PT.INTREAT ---
Date of service: 03/29/18 Time of Service: 10:20 PT Notes Treatment Note Date: 03/29/18 Clinic Location: Inpatient SUBJECTIVE: Denies pain. Her heart hurts, because her dogs have been euthanized. She is agitated by all her of her IV's and patel lines. OBJECTIVE: Therapeutic procedures (39830b0). x See flow sheet: x Provided skilled instruction in proper exercise performance: x Provided skilled verbal cues to facilitate proper muscle recruitment and/or movement pattern: [] [] Other: [] Therapeutic Activities - (28406 x1): See flow sheet for transfer activities, and level of assist. Required skilled instruction for proper hand placement for safety with transfers and cues with ambulation. Total Treatment Time: 30 minutes, direct and total
--- NOTE | 2018-03-29 10:59 | PTTR_ITS ---
Date of service: 03/29/18 Time of Service: 10:20 PT Notes Treatment Note Date: 03/29/18 Clinic Location: Inpatient SUBJECTIVE: Denies pain. Her heart hurts, because her dogs have been euthanized. She is agitated by all her of her IV's and patel lines. OBJECTIVE: Therapeutic procedures (89264s9). x See flow sheet: x Provided skilled instruction in proper exercise performance: x Provided skilled verbal cues to facilitate proper muscle recruitment and/or movement pattern: [] [] Other: [] Therapeutic Activities - (06333 x1): See flow sheet for transfer activities, and level of assist. Required skilled instruction for proper hand placement for safety with transfers and cues with ambulation. Total Treatment Time: 30 minutes, direct and total
--- NOTE | 2018-03-29 11:37 | PDOC.CMPRO ---
Care Management Progress Note S/O: Ne was reviewed at interdisciplinary round report; per MD she could be ready for discharge as soon as tomorrow, 03/30/17. Ne continues to struggle emotionally but was able to identify all her daughter is doing to arrange Ne moving into her home. Ne reported her daughter is securing Ne's home in [place] and has adopted a few of her dogs. She becomes weepy speaking to the ones who were euthanized. She reports she is struggling to eat though she knows she needs to in order to strengthen. She anticipates going to her daughter's in [place] and struggles to engage fully in discharge planning conversation; understandable so. A: 72 year old female admitted to [facility] 03/26/18 for Delerium, UTI. P: Ne will discharge to her daughter's home in [place], [place] when medically ready per MD. She will require close follow up with Urology per MD. Undetermined if Ne will require and agree to VNA supports vs. SNF for short term recovery. If moving to [place] she will likely require new PCP and community based provider assignments. CM will continue to offer support to patient, family, and care team regarding discharge planning and disposition.
[2018-03-29] MEDS: Acetaminophen Solution 650 MG/20.3 ML CUP PO (20:08)
[2018-03-29] MEDS: Normal Saline Flush 10 ML SYR IVP ×2 (20:19→21:19)
--- NOTE | 2018-03-29 20:21 | NUR.NOTE ---
Nursing Note:Pt has been calling frequently and reports she is scared, hurts, nothing is working right, doesn't know what she is doing here, everything is tangled She states everything is such a mess and doesn't know what to do. Her RR is 28 and she appears to be having an anxiety attack or similar. I observed this behavior last night as well. See MAR for interventions. I have removed extra blankets, SCD's, teds and socks as these items all seem like a mess to the pt. She reports feeling hot then suddenly cold. She frequently feels the sensation to urinate and does not recall that she has a catheter or what it is for. She is upset about her IV access and tubing for same.
[2018-03-30] MEDS: POTASSIUM CHLORIDE/0.9% NACL 1,000 ML 100 MEQ IV (04:48)
[2018-03-30 07:37] LABS: Anion Gap 7.7 mmol/L (3-11); BUN 7 mg/dL (7-18); CO2 26.3 mmol/L (21.0-32.0); CREATININE 0.55 mg/dL (0.55-1.02); Calcium 7.8 mg/dL (8.5-10.1); Chloride 109 mmol/L (98-107); Glucose 93 mg/dL (70-100); Magnesium 1.9 mg/dL (1.8-2.4); Potassium 4.3 mmol/L (3.5-5.1); Sodium 143 mmol/L (136-145)
[2018-03-30 07:38] LABS: HCT 33.3 % (36.0-46.0); HGB 10.8 g/dL (12.0-15.5); Mean Corp. HGB Concentration 32.4 g/dL (32.0-36.0); Mean Corpuscular Hemoglobin 29.8 pg (27.0-33.0); Mean Platelet Volume 10.7 fL (8.0-11.0); Platelet Count 222 x1000/uL (130-400); RBC 3.62 m/cumm (4.00-5.20); RBC Distribution Width 14.1 % (11.7-14.6); White Blood Cell Count 5.62 k/cumm (4.4-10.8)
[2018-03-30 08:07] VITALS: BP 136/78; PULSE 75; RESP 20; TEMP 35.9; O2SAT 98
[2018-03-30] MEDS: Ciprofloxacin 500 MG TAB PO ×2 (08:35→20:16)
[2018-03-30] MEDS: Enoxaparin 40 MG/0.4 ML SYR SC (08:35)
[2018-03-30] MEDS: Potassium Chloride 20 MEQ TABCR 40 MEQ PO ×2 (08:35→20:16)
[2018-03-30 08:39] LABS: Absolute Basophil Count 0.06 k/cumm (0.0-0.2); Absolute Eosinophil Count 0.06 k/cumm (0.0-0.7); Absolute Lymphocyte Count 0.56 k/cumm (1.2-3.4); Absolute Monocyte Count 0.51 k/cumm (0.11-0.7); Absolute Neutrophil Count 4.44 k/cumm (1.2-6.7); Atypical Lymphocytes % 2; Diff Comment Manual Differential; RBC Morphology Normal
[2018-03-30] MEDS: Magnesium Oxide 400 MG TAB PO (09:23)
--- NOTE | 2018-03-30 12:07 | PGE_ITS ---
Date of Service Date of service: 03/30/18 Time of Service: 12:30 Assessment and Plan (1) Hypomagnesemia: Current visit: Yes Status: Acute Mag at baseline will monitor and replete as needed. (2) Bacteremia: Current visit: Yes Status: Acute urine cx showing E.coli gram negative, blood cx-gram negative. Cipro PO, waiting a call from urology to discuss medication timeframe (3) DVT (deep venous thrombosis): Current visit: Yes Status: Chronic SCDs on while in bed. Placed on enoxaprin 40 mg for DVT prophylaxis, sitting up in chair. (4) Goals of care, counseling/discussion: Current visit: No Status: Acute (5) Delirium due to another medical condition: Current visit: Yes Status: Acute Continue to monitor mental status, patient seems to be at baseline at this time. Able to recall facts and AAOx3 (6) Complicated UTI (urinary tract infection): Current visit: Yes Status: Acute Ramos dcd, voiding clear yellow urine without pain. Subjective Patient reports: feels better and other Interval history since last seen: 72 yo woman who has lived alone x 20 years, has 8 dogs, was bed bound x 48hrs +/- prior to admission for UTI, obstructing kidney stones, urethral stent placement, malnutrition, weakness. Has Mild Cognitive Impairment. Does not use allopathic medications. 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 Last hospitalization was when her daughter was born 50 years ago. Today patient looks great. Sitting up in chair, appears to be less anxious and well groomed. Smiling and making good eye contact. States feeling better. Dealing with everything going on and understanding that she has to go to a SNF. Asking when she was leaving today or tomorrow. Explained that CM was working on a bed and we would be talking to her about it through out the day, Waiting on Urology to call back at this time. Exam Const General: cooperative and other HENMT Head: normal to inspection Eyes General: appearance normal, both eyes and all related structures Pupils: PERRL Neck Neck: normal visual inspection and no lymphadenopathy Lymphatic: no lymphadenopathy noted Chest Chest: normal inspection of the chest Resp Effort & Inspection: normal respiratory effort Auscultation: clear to auscultation bilaterally Cardio Jugular venous pressure: no JVD Palpation: normal PMI Rate: regular rate Rhythm: regular rhythm GI Inspection: normal to inspection Palpation: no hepatosplenomegaly Auscultation: normal bowel sounds Skin General skin exam: no rashes or lesions noted Wounds: no wounds Neuro General: alert, awake and oriented x3 Extrem General: normal to inspection Psych Appearance: grossly normal Speech and Movement: speech and movement normal Attitude: cooperative Objective Objective Clinical Data: Abnormal lab results 03/30/18 03/30/18 Range/Units 06:31 06:31 RBC 3.62 L (4.00-5.20) m/cumm Hgb 10.8 L (12.0-15.5) g/dL Hct 33.3 L (36.0-46.0) % Absolute Lymphocytes 0.56 L (1.2-3.4) k/cumm Chloride 109 H (98-107) mmol/L Calcium 7.8 L (8.5-10.1) mg/dL Vital Signs Temperature 35.9 C L 03/30/18 08:07 Temperature Source Tympanic 03/30/18 08:07 Pulse 75 03/30/18 08:07 Pulse Rhythm Regular 03/30/18 08:53 Respiratory Rate 20 03/30/18 08:07 Respiratory Effort 03/30/18 08:53 Respiratory Depth Normal 03/30/18 08:53 Respiratory Pattern Normal 03/30/18 08:53 Blood Pressure 136/78 03/30/18 08:07 Blood Pressure Position Sitting 03/26/18 19:47 Pulse Oximetry 98 03/30/18 08:07 Respiratory End-tidal CO2 29 03/27/18 10:52 Oxygen Delivery Method Room Air 03/30/18 08:07 Oxygen Flow Rate 0 03/30/18 08:07 Pain Level 0 03/29/18 07:45 Comment 03/27/18 09:19 Intake & Output 03/29/18 03/30/18 03/30/18 23:59 11:59 23:59 Intake Total 1760 / 3251.667 1935 / 1935 Output Total 1999 1700 / 1700 Balance -240 / -198.333 235 / 235 Intake: IV 1050 / 1.667 1685 / 1685 Oral 710 / 1210 250 / 250 Output: Urine 1999 1700 / 1700 Other: Urine Color Yellow Yellow Urine Appearance Clear Clear Stool Size Moderate Stool Characteristics Soft Brown Voiding Methods Toilet Laboratory Results WBC 5.62 k/cumm (4.4-10.8) 03/30/18 06:31 RBC 3.62 m/cumm (4.00-5.20) L 03/30/18 06:31 Hgb 10.8 g/dL (12.0-15.5) L 03/30/18 06:31 Hct 33.3 % (36.0-46.0) L 03/30/18 06:31 MCV 92.0 fL (80-95) 03/30/18 06:31 MCH 29.8 pg (27.0-33.0) 03/30/18 06:31 MCHC 32.4 g/dL (32.0-36.0) 03/30/18 06:31 RDW 14.1 % (11.7-14.6) 03/30/18 06:31 Plt Count 222 x1000/uL (130-400) 03/30/18 06:31 MPV 10.7 fL (8.0-11.0) 03/30/18 06:31 Immature Gran % 0.0 03/30/18 06:31 Neutrophils % 72.0 03/30/18 06:31 Lymphocytes % 8.0 03/30/18 06:31 Monocytes % 9.0 03/30/18 06:31 Eosinophils % 1.0 03/30/18 06:31 Basophils % 1.0 03/30/18 06:31 Absolute Neutrophils 4.44 k/cumm (1.2-6.7) 03/30/18 06:31 Band Neutrophils 7.0 % 03/30/18 06:31 Absolute Lymphocytes 0.56 k/cumm (1.2-3.4) L 03/30/18 06:31 Absolute Monocytes 0.51 k/cumm (0.11-0.7) 03/30/18 06:31 Absolute Eosinophils 0.06 k/cumm (0.0-0.7) 03/30/18 06:31 Absolute Basophils 0.06 k/cumm (0.0-0.2) 03/30/18 06:31 Differential Comment Manual differential 03/30/18 06:31 Atypical Lymphocytes 2 03/30/18 06:31 RBC Morphology Normal 03/30/18 06:31 PT 9.4 sec (9.3-11.0) 03/26/18 20:00 INR 0.9 (0.9-1.1) 03/26/18 20:00 APTT 32.0 sec (21.0-31.4) H 03/26/18 20:00 Sodium 143 mmol/L (136-145) 03/30/18 06:31 Potassium 4.3 mmol/L (3.5-5.1) 03/30/18 06:31 Chloride 109 mmol/L (98-107) H 03/30/18 06:31 Carbon Dioxide 26.3 mmol/L (21.0-32.0) 03/30/18 06:31 Anion Gap 7.7 mmol/L (3-11) 03/30/18 06:31 BUN 7 mg/dL (7-18) 03/30/18 06:31 Creatinine 0.55 mg/dL (0.55-1.02) 03/30/18 06:31 Estimated GFR/1.73 m2 >= 60.00 (mL/min/1.73m2) 03/30/18 06:31 Glucose 93 mg/dL (70-100) 03/30/18 06:31 Lactate 0.5 mmol/L (0.6-1.4) L 03/27/18 01:40 Calcium 7.8 mg/dL (8.5-10.1) L 03/30/18 06:31 Magnesium 1.9 mg/dL (1.8-2.4) 03/30/18 06:31 Total Bilirubin 0.5 mg/dL (0.2-1.0) 03/27/18 07:20 AST 18 U/L (15-37) 03/27/18 07:20 ALT 18 U/L (12-78) 03/27/18 07:20 Alkaline Phosphatase 81 U/L (46-116) 03/27/18 07:20 Ammonia < 10 umol/L (11-32) L 03/26/18 20:00 Total Protein 6.1 g/dL (6.4-8.2) L 03/27/18 07:20 Albumin 2.5 g/dL (3.4-5.0) L 03/27/18 07:20 TSH 1.35 uIU/mL (0.358-3.74) 03/26/18 20:00 Urine Color Yellow (Yellow) 03/26/18 20:05 Urine Clarity Sl cloudy 03/26/18 20:05 Urine pH 5.0 (5-8) 03/26/18 20:05 Ur Specific [place] 1.025 (1.005-1.025) 03/26/18 20:05 Urine Protein 100 mg/dL (Negative) H 03/26/18 20:05 Urine Ketones Negative mg/dL (Negative) 03/26/18 20:05 Urine Blood Small (Negative) H 03/26/18 20:05 Urine Nitrite Negative (Negative) 03/26/18 20:05 Urine Bilirubin Negative (Negative) 03/26/18 20:05 Urine Urobilinogen 0.2 EU/dL (Up TO 0.2) 03/26/18 20:05 Ur Leukocyte Esterase Small (Negative) H 03/26/18 20:05 Urine RBC 5-10 (0-2) H 03/26/18 20:05 Urine WBC >50 HPF (0-5) 03/26/18 20:05 Ur Epithelial Cells Negative HPF (Negative) 03/26/18 20:05 Urine Crystals Moderate amorphous HPF (Negative) 03/26/18 20:05 Urine Bacteria Rare HPF (Negative) 03/26/18 20:05 Urine Casts 5-10 fine granular LPF (Negative) 03/26/18 20:05 Urine Mucus Negative (Negative) 03/26/18 20:05 Urine Other Negative (Negative) 03/26/18 20:05 Ur Culture Indicated? Yes 03/26/18 20:05 Urine Glucose Negative mg/dL (Negative) 03/26/18 20:05 Salicylates < 2.8 mg/dL (2.8-20.0) L 03/26/18 20:00 Urine Opiates Screen Negative (Negative) 03/26/18 20:05 Urine Methadone Screen Negative (Negative) 03/26/18 20:05 Ur Barbiturates Screen Negative (Negative) 03/26/18 20:05 Ur Tricyclics Screen Negative (Negative) 03/26/18 20:05 Ur Amphetamines Screen Negative (Negative) 03/26/18 20:05 U Benzodiazepines Scrn Negative (Negative) 03/26/18 20:05 Urine Cocaine Screen Negative (Negative) 03/26/18 20:05 Ur THC Screen Negative (Negative) 03/26/18 20:05 Ethyl Alcohol < 3.0 mg/dL (<3) 03/26/18 20:00
--- NOTE | 2018-03-30 12:27 | PT.INTREAT ---
Date of service: 03/30/18 Time of Service: 12:27 PT Notes Inpatient Physical Therapy Treatment Note [facility] Date: 03/30/18 PRECAUTIONS: Fall SUBJECTIVE: June is agreeable to participating in PT, although states that she feels very cold and weak today. OBJECTIVE: PAIN: No c/o pain BED MOBILITY/TRANSFERS Sit-stand: SBA Stand-sit: SBA GAIT Assistive Device: FWW Weight bearing: Full Assist: SBA Distance: 75' x2 THEREX: Patient completed several LE strengthening exercises in a seated position, as per flow sheet. STAIRS: Up/down 3x4 and 2x6 using B rails and a step-over pattern with SBA ASSESSMENT: Patient tolerated session well without complaint. She was able to tolerate a progression in gait distance with FWW support. She would benefit from continued gait and transfer training, as well as strengthening for improved mobility. PLAN: Continue with PT's POC TREATMENT CODE/TIME: 30 minutes; (17920b0, 65154b0)
--- NOTE | 2018-03-30 12:51 | OT.INIE ---
Occupational Therapy Notes Inpatient Occupational Therapy Evaluation Date: 03/30/18 Referring Doctor:Pratima Vuong MD OT Orders: Eval and Treat Precautions: Standard, dementia PATIENT PROFILE/ADMITTING DIAGNOSIS: Pt is a 72 year old female due to confusion, weakness, unsteadiness of gait at home. Patient was brought to the emergency room and appeared to be more confused than her baseline level patient does have a history of dementia. Past Medical History: Dementia Social History/Home Situation: Patient lives locally with her daughter who works at [employer] [facility] [employer]. She reports that she was (I) with all ADLs and IADLs prior to admission to [facility]. Pt is slightly confused at todays session and requires step by step instructions in order to perform ADL routines. Equipment owned/DME: Patient has no equipment utilized at baseline for functional activities and ADLs/IADLs. SUBJECTIVE: Pt was sitting in chair when OT arrived. She reports that she is connected to lots of wires and really just wants to go home with her daughter because she is unsafe to go home alone to her home in [place]. She starts crying and reports that all of her dogs have been euthanized and she is falling apart. OBJECTIVE: General Observation: IV (R) UEamanda Mental Status: Confused due to dementia Pain: no c/o pain ROM: RUE WNL L UE WNL STRENGTH: RUE 4+/5 throughout LUE 4+/5 throughout FUNCTIONAL MOBILITY/ADLS: Transfers Sit-Stand FWW, CGA Stand-sit FWW, SBA min vc sink-Chair FWW, SBA Chair-sink FWW, SBA GROOMING Standing at sink with FWW, SBA pt performed hair brushing (I) with cues for functional dynamic weight shifting, pt also took out dentures and cleaned/applied adhesive requiring step by step instructions and min (A). BALANCE: Static sitting Normal Dynamic Sitting Normal Static Standing Good Dynamic Standing Good SPECIAL TESTS: Daily Activity Limitations Standardized Measure [facility] AM PAC ?6 clicks? Daily Activity Inpatient Short Form: Raw score: 18 Standardized score: 38.66 CMS score: 46.65% CMS modifier: CK INFORMED CONSENT/EDUCATION: Pt instructed in purpose of OT Consult and plan of care. ASSESSMENT: Patient is a 72-year-old female referred to occupational therapy services with diagnosis of confusion, weakness, unsteadiness of gait at home in setting of Dementia. Patient presents with clinical signs and symptoms consistent with dx, as demonstrated by the following impairment level findings and functional limitations: Dementia increased confusion, decreased (I) in ADLs/IADLs, using FWW for mobility due to unsteadiness, requires step by step vc to perform ADLs/IADLs. AMPAC score 18, CMS score 46.65% Patient is assessed as a Moderate 96039 complexity based on the following: History: See Above Examination: See Above Presentation: Evolving Decision Making: AMPAC score 18, CMS score 46.65% GOALS Goals x1 week in hospital setting. 1. Dressing- Pt will be able to perform LE dressing with min (A) and min vc 2. Bathing- Pt will be able to perform bathing routine in shower with min (A) and min vc 3. Toileting- Pt will be able to perform toileting routine (I) 4. Eating- Pt will be able to perform eating routine (I) with opening and closing containers and food to mouth translation. PLAN OF CARE/TREATMENT PLAN: 1x/day, 5 days/ week x 1week Initiate Occupational Therapy Services for bathing, dressing, grooming, toileting, eating, transfer training. DISCHARGE RECOMMENDATIONS Home with her daughter to help care for her when medically cleared per MD. TREATMENT TIME/MINUTES/CODES IE 32 minutes (08:45), Self Care ([id number]) G Codes in the area of self- : washing oneself, toileting, dressing, eating and drinking, current status GO G8987 CK projected status GO [id number]. Discharge status (if discharging) GO [id number] Based on AMPAC score 18, CMS score 46.65%. Thank you for this referral. Steff Sutton, OTR/L [facility]
--- NOTE | 2018-03-30 13:11 | OTIE_ITS ---
Occupational Therapy Notes Inpatient Occupational Therapy Evaluation Date: 03/30/18 Referring Doctor:Pratima Vuong MD OT Orders: Eval and Treat Precautions: Standard, dementia PATIENT PROFILE/ADMITTING DIAGNOSIS: Pt is a 72 year old female due to confusion, weakness, unsteadiness of gait at home. Patient was brought to the emergency room and appeared to be more confused than her baseline level patient does have a history of dementia. Past Medical History: Dementia Social History/Home Situation: Patient lives locally with her daughter who works at [employer]. She reports that she was (I) with all ADLs and IADLs prior to admission to [facility]. Pt is slightly confused at todays session and requires step by step instructions in order to perform ADL routines. Equipment owned/DME: Patient has no equipment utilized at baseline for functional activities and ADLs/IADLs. SUBJECTIVE: Pt was sitting in chair when OT arrived. She reports that she is connected to lots of wires and really just wants to go home with her daughter because she is unsafe to go home alone to her home in [place]. She starts crying and reports that all of her dogs have been euthanized and she is falling apart. OBJECTIVE: General Observation: IV (R) UEamanda Mental Status: Confused due to dementia Pain: no c/o pain ROM: RUE WNL L UE WNL STRENGTH: RUE 4+/5 throughout LUE 4+/5 throughout FUNCTIONAL MOBILITY/ADLS: Transfers Sit-Stand FWW, CGA Stand-sit FWW, SBA min vc sink-Chair FWW, SBA Chair-sink FWW, SBA GROOMING Standing at sink with FWW, SBA pt performed hair brushing (I) with cues for functional dynamic weight shifting, pt also took out dentures and cleaned/applied adhesive requiring step by step instructions and min (A). BALANCE: Static sitting Normal Dynamic Sitting Normal Static Standing Good Dynamic Standing Good SPECIAL TESTS: Daily Activity Limitations Standardized Measure [facility] AM PAC ?6 clicks? Daily Activity Inpatient Short Form: Raw score: 18 Standardized score: 38.66 CMS score: 46.65% CMS modifier: CK INFORMED CONSENT/EDUCATION: Pt instructed in purpose of OT Consult and plan of care. ASSESSMENT: Patient is a 72-year-old female referred to occupational therapy services with diagnosis of confusion, weakness, unsteadiness of gait at home in setting of Dementia. Patient presents with clinical signs and symptoms consistent with dx, as demonstrated by the following impairment level findings and functional limitations: Dementia increased confusion, decreased (I) in ADLs/IADLs, using FWW for mobility due to unsteadiness, requires step by step vc to perform ADLs/IADLs. AMPAC score 18, CMS score 46.65% Patient is assessed as a Moderate 08541 complexity based on the following: History: See Above Examination: See Above Presentation: Evolving Decision Making: AMPAC score 18, CMS score 46.65% GOALS Goals x1 week in hospital setting. 1. Dressing- Pt will be able to perform LE dressing with min (A) and min vc 2. Bathing- Pt will be able to perform bathing routine in shower with min (A) and min vc 3. Toileting- Pt will be able to perform toileting routine (I) 4. Eating- Pt will be able to perform eating routine (I) with opening and closing containers and food to mouth translation. PLAN OF CARE/TREATMENT PLAN: 1x/day, 5 days/ week x 1week Initiate Occupational Therapy Services for bathing, dressing, grooming, toileting, eating, transfer training. DISCHARGE RECOMMENDATIONS Home with her daughter to help care for her when medically cleared per MD. TREATMENT TIME/MINUTES/CODES IE 32 minutes (08:45), Self Care ([id number]) G Codes in the area of self- : washing oneself, toileting, dressing, eating and drinking, current status GO G8987 CK projected status GO [id number]. Discharge status (if discharging) GO [id number] Based on AMPAC score 18, CMS score 46.65%. Thank you for this referral. Steff Sutton, OTR/L [facility]
--- NOTE | 2018-03-30 15:10 | PT.INTREAT ---
Date of service: 03/30/18 Time of Service: 14:10 PT Notes Inpatient Physical Therapy Treatment Note [facility] Date: 03/30/18 PRECAUTIONS: std SUBJECTIVE: June reports that she is feeling better. She would like to go for a walk. OBJECTIVE: [] Sit-stand: SBA Stand-sit: SBA GAIT Assistive Device: FWW Weight bearing: full Assist: SBA Distance: 350' Deviation: cues for turning corners. THEREX: performed a global LE strengthening routine while seated in chair. Please refer to flowsheet for details. ASSESSMENT: tolerated session well. She was able to ambulate greater distances without c/o fatigue. PLAN: continue to progress her strength and endurance following PT POC. TREATMENT CODE/TIME: 30 min. TPx1, TAx1.
--- NOTE | 2018-03-30 16:19 | PDOC.CMPRO ---
Care Management Progress Note S/O: Ne had a shower today and a Reiki treatment, both of which improved her affect. She will transition to SWB1 or SNF near her daughter, referral sent to [place]-awaiting response. Inocencia reports if [place] is unable to offer bed, she would like referrals sent to [facility]. Inocencia requests updates tomorrow and provides work number: [phone]-Medical staff office at [facility]. A: 72 year old female admitted to [facility] 03/26/18 for Delerium, UTI. P: Ne will discharge to SNF near her daughter's home in [place], [place] when medically ready per MD. She will require close follow up with Urology per MD-Inocencia reports being able to coordinate follow up at [facility]. will continue to offer support to patient, family, and care team regarding discharge planning and disposition.
[2018-03-30 16:21] VITALS: BP 123/65; PULSE 74; RESP 18; TEMP 37.9; O2SAT 97
--- NOTE | 2018-03-30 17:17 | CMPROGNOTE_ITS ---
Care Management Progress Note S/O: Ne had a shower today and a Reiki treatment, both of which improved her affect. She will transition to SWB1 or SNF near her daughter, referral sent to [facility]-awaiting response. Inocencia reports if [facility] is unable to offer bed, she would like referrals sent to [facility]. Inocencia requests updates tomorrow and provides work number: [phone]-Medical staff office at [facility]. A: 72 year old female admitted to [facility] 03/26/18 for Delerium, UTI. P: Ne will discharge to SNF near her daughter's home in [place], [place] when medically ready per MD. She will require close follow up with Urology per MD- Inocencia reports being able to coordinate follow up at [facility]. will continue to offer support to patient, family, and care team regarding discharge planning and disposition.
[2018-03-30 20:58] VITALS: BP 145/66; PULSE 75; RESP 18; TEMP 36.1; O2SAT 98
[2018-03-31 00:08] VITALS: BP 147/74; PULSE 71; RESP 17; TEMP 37.3; O2SAT 99
[2018-03-31 04:20] VITALS: BP 153/80; PULSE 78; RESP 18; TEMP 37.2; O2SAT 99
[2018-03-31 07:33] LABS: Abs Immature Grans 0.07 k/cumm (0.0-0.09); HCT 32.7 % (36.0-46.0); HGB 10.6 g/dL (12.0-15.5); Mean Corp. HGB Concentration 32.4 g/dL (32.0-36.0); Mean Corpuscular Hemoglobin 29.9 pg (27.0-33.0); Mean Corpuscular Volume 92.4 fL (80-95); Mean Platelet Volume 10.5 fL (8.0-11.0); Platelet Count 273 x1000/uL (130-400); RBC 3.54 m/cumm (4.00-5.20); RBC Distribution Width 13.9 % (11.7-14.6); White Blood Cell Count 5.82 k/cumm (4.4-10.8)
[2018-03-31 07:38] LABS: Anion Gap 4.8 mmol/L (3-11); BUN 9 mg/dL (7-18); CO2 28.2 mmol/L (21.0-32.0); Calcium 8.5 mg/dL (8.5-10.1); Chloride 110 mmol/L (98-107); Glucose 88 mg/dL (70-100); Magnesium 1.7 mg/dL (1.8-2.4); Potassium 4.2 mmol/L (3.5-5.1); Sodium 143 mmol/L (136-145)
--- NOTE | 2018-03-31 07:44 | PGE_ITS ---
Date of Service Date of service: 03/31/18 Time of Service: 07:39 Assessment and Plan (1) Bacteremia: Current visit: Yes Status: Acute Since she did have positive blood cultures, a typical antibiotic regimen would be for 7-14 days I spoke with the patient's daughter by phone the last evening once I was done in the operating room. I explained that at some point, her mother would require ureteroscopy with stone manipulation. Appropriate timing for the surgery would be anywhere from soon after she completes her antibiotic up to 3 months from now. The 3-month jose e is chosen because most chronic stents need to be changed or removed in 3-6 months after their initial insertion. The location of her surgery will really depend on the patient placement. The patient has lived up here in the [facility] for years, but her daughter is trying to get her placed down closer to her daughter's home. In fact, she tells me she has closed up her mother's house. If the patient's placement in [place] is successful, it would make much more sense for the patient's surgery to be done down at [facility] as it is closer to the daughter's home and is actually where the daughter works. Once the patient's placement has been arranged, I can either make arrangements for a surgery to be done locally, or place a referral for the patient to be seen by the urologist at [facility]. In either event, as I mentioned in my statement about timing of the surgery, the referral would not need to be urgent or emergent as we would have 3 months to arrange the pro cedure. (2) Complicated UTI (urinary tract infection): Current visit: Yes Status: Acute Subjective Interval history since last seen: Patient looks and feels much better than at the time of her admission. Her catheter has been successfully removed. Exam Narrative Exam Narrative: She does not appear septic or toxic. Her mental status has improved somewhat. Her vital signs are documented elsewhere in the chart. Objective Objective Clinical Data: Abnormal lab results 03/30/18 03/30/18 03/31/18 Range/Units 06:31 06:31 06:28 RBC 3.62 L (4.00-5.20) m/cumm Hgb 10.8 L (12.0-15.5) g/dL Hct 33.3 L (36.0-46.0) % Absolute Lymphocytes 0.56 L (1.2-3.4) k/cumm Chloride 109 H 110 H (98-107) mmol/L Calcium 7.8 L (8.5-10.1) mg/dL Magnesium 1.7 L (1.8-2.4) mg/dL Vital Signs Temperature 37.2 C 03/31/18 04:20 Temperature Source Tympanic 03/31/18 04:20 Pulse 78 03/31/18 04:20 Pulse Rhythm Regular 03/30/18 20:59 Respiratory Rate 18 03/31/18 04:20 Respiratory Effort 03/30/18 20:59 Respiratory Depth Normal 03/30/18 20:59 Respiratory Pattern Normal 03/30/18 20:59 Blood Pressure 153/80 H 03/31/18 04:20 Blood Pressure Position Sitting 03/26/18 19:47 Pulse Oximetry 99 03/31/18 04:20 Respiratory End-tidal CO2 29 03/27/18 10:52 Oxygen Delivery Method Room Air 03/31/18 04:20 Oxygen Flow Rate 0 03/31/18 04:20 Pain Level 0 03/29/18 07:45 Comment 03/27/18 09:19 Intake & Output 03/30/18 03/30/18 03/31/18 11:59 23:59 11:59 Intake Total 1935 / 2175 240 / 2175 Output Total 1700 / 2550 850 / 2550 600 / 600 Balance 235 / -375 -610 / -375 -600 / -600 Intake: IV 1685 / 1685 Oral 250 / 490 240 / 490 Output: Urine 1700 / 2550 850 / 2550 600 / 600 Other: Urine Color Yellow Yellow Yellow Urine Appearance Clear Clear Clear Urine Odor Normal Normal Stool Occult Blood Negative Stool Size Small Stool Characteristics Foamy Voiding Methods Toilet Toilet Toilet Laboratory Results WBC 5.62 k/cumm (4.4-10.8) 03/30/18 06:31 RBC 3.62 m/cumm (4.00-5.20) L 03/30/18 06:31 Hgb 10.8 g/dL (12.0-15.5) L 03/30/18 06:31 Hct 33.3 % (36.0-46.0) L 03/30/18 06:31 MCV 92.0 fL (80-95) 03/30/18 06:31 MCH 29.8 pg (27.0-33.0) 03/30/18 06:31 MCHC 32.4 g/dL (32.0-36.0) 03/30/18 06:31 RDW 14.1 % (11.7-14.6) 03/30/18 06:31 Plt Count 222 x1000/uL (130-400) 03/30/18 06:31 MPV 10.7 fL (8.0-11.0) 03/30/18 06:31 Immature Gran % 0.0 03/30/18 06:31 Neutrophils % 72.0 03/30/18 06:31 Lymphocytes % 8.0 03/30/18 06:31 Monocytes % 9.0 03/30/18 06:31 Eosinophils % 1.0 03/30/18 06:31 Basophils % 1.0 03/30/18 06:31 Absolute Neutrophils 4.44 k/cumm (1.2-6.7) 03/30/18 06:31 Band Neutrophils 7.0 % 03/30/18 06:31 Absolute Lymphocytes 0.56 k/cumm (1.2-3.4) L 03/30/18 06:31 Absolute Monocytes 0.51 k/cumm (0.11-0.7) 03/30/18 06:31 Absolute Eosinophils 0.06 k/cumm (0.0-0.7) 03/30/18 06:31 Absolute Basophils 0.06 k/cumm (0.0-0.2) 03/30/18 06:31 Differential Comment Manual differential 03/30/18 06:31 Atypical Lymphocytes 2 03/30/18 06:31 RBC Morphology Normal 03/30/18 06:31 PT 9.4 sec (9.3-11.0) 03/26/18 20:00 INR 0.9 (0.9-1.1) 03/26/18 20:00 APTT 32.0 sec (21.0-31.4) H 03/26/18 20:00 Sodium 143 mmol/L (136-145) 03/31/18 06:28 Potassium 4.2 mmol/L (3.5-5.1) 03/31/18 06:28 Chloride 110 mmol/L (98-107) H 03/31/18 06:28 Carbon Dioxide 28.2 mmol/L (21.0-32.0) 03/31/18 06:28 Anion Gap 4.8 mmol/L (3-11) 03/31/18 06:28 BUN 9 mg/dL (7-18) 03/31/18 06:28 Creatinine 0.60 mg/dL (0.55-1.02) 03/31/18 06:28 Estimated GFR/1.73 m2 >= 60.00 (mL/min/1.73m2) 03/31/18 06:28 Glucose 88 mg/dL (70-100) 03/31/18 06:28 Lactate 0.5 mmol/L (0.6-1.4) L 03/27/18 01:40 Calcium 8.5 mg/dL (8.5-10.1) 03/31/18 06:28 Magnesium 1.7 mg/dL (1.8-2.4) L 03/31/18 06:28 Total Bilirubin 0.5 mg/dL (0.2-1.0) 03/27/18 07:20 AST 18 U/L (15-37) 03/27/18 07:20 ALT 18 U/L (12-78) 03/27/18 07:20 Alkaline Phosphatase 81 U/L (46-116) 03/27/18 07:20 Ammonia < 10 umol/L (11-32) L 03/26/18 20:00 Total Protein 6.1 g/dL (6.4-8.2) L 03/27/18 07:20 Albumin 2.5 g/dL (3.4-5.0) L 03/27/18 07:20 TSH 1.35 uIU/mL (0.358-3.74) 03/26/18 20:00 Urine Color Yellow (Yellow) 03/26/18 20:05 Urine Clarity Sl cloudy 03/26/18 20:05 Urine pH 5.0 (5-8) 03/26/18 20:05 Ur Specific [place] 1.025 (1.005-1.025) 03/26/18 20:05 Urine Protein 100 mg/dL (Negative) H 03/26/18 20:05 Urine Ketones Negative mg/dL (Negative) 03/26/18 20:05 Urine Blood Small (Negative) H 03/26/18 20:05 Urine Nitrite Negative (Negative) 03/26/18 20:05 Urine Bilirubin Negative (Negative) 03/26/18 20:05 Urine Urobilinogen 0.2 EU/dL (Up TO 0.2) 03/26/18 20:05 Ur Leukocyte Esterase Small (Negative) H 03/26/18 20:05 Urine RBC 5-10 (0-2) H 03/26/18 20:05 Urine WBC >50 HPF (0-5) 03/26/18 20:05 Ur Epithelial Cells Negative HPF (Negative) 03/26/18 20:05 Urine Crystals Moderate amorphous HPF (Negative) 03/26/18 20:05 Urine Bacteria Rare HPF (Negative) 03/26/18 20:05 Urine Casts 5-10 fine granular LPF (Negative) 03/26/18 20:05 Urine Mucus Negative (Negative) 03/26/18 20:05 Urine Other Negative (Negative) 03/26/18 20:05 Ur Culture Indicated? Yes 03/26/18 20:05 Urine Glucose Negative mg/dL (Negative) 03/26/18 20:05 Salicylates < 2.8 mg/dL (2.8-20.0) L 03/26/18 20:00 Urine Opiates Screen Negative (Negative) 03/26/18 20:05 Urine Methadone Screen Negative (Negative) 03/26/18 20:05 Ur Barbiturates Screen Negative (Negative) 03/26/18 20:05 Ur Tricyclics Screen Negative (Negative) 03/26/18 20:05 Ur Amphetamines Screen Negative (Negative) 03/26/18 20:05 U Benzodiazepines Scrn Negative (Negative) 03/26/18 20:05 Urine Cocaine Screen Negative (Negative) 03/26/18 20:05 Ur THC Screen Negative (Negative) 03/26/18 20:05 Ethyl Alcohol < 3.0 mg/dL (<3) 03/26/18 20:00
[2018-03-31 07:45] VITALS: BP 146/75; PULSE 71; RESP 20; TEMP 36.9; O2SAT 98
[2018-03-31 07:50] VITALS: O2SAT 98
[2018-03-31 08:20] LABS: Absolute Eosinophil Count 0.12 k/cumm (0.0-0.7); Absolute Lymphocyte Count 0.81 k/cumm (1.2-3.4); Absolute Monocyte Count 0.23 k/cumm (0.11-0.7); Absolute Neutrophil Count 4.54 k/cumm (1.2-6.7); Atypical Lymphocytes % 6; Diff Comment Manual Differential; Polychromasia Present
[2018-03-31] MEDS: Enoxaparin 40 MG/0.4 ML SYR SC (09:48)
[2018-03-31] MEDS: Magnesium Oxide 400 MG TAB 800 MG PO (09:48)
[2018-03-31] MEDS: Ciprofloxacin 500 MG TAB PO ×2 (09:48→19:47)
[2018-03-31] MEDS: Potassium Chloride 20 MEQ TABCR 40 MEQ PO ×2 (09:48→19:48)
--- NOTE | 2018-03-31 11:00 | OT.INTREAT ---
Date of service: 03/31/18 Time of Service: 09:45 Occupational Therapy Notes Occupational Therapy Inpatient Treatment Note Date: 03/31/18 SUBJECTIVE: Pt was sitting in chair when OT arrived. She was agreeable to OT session reporting that she doesn't understand why she has so much medical equipment on her arms, and wants to go home as soon as possible to be with her dogs. She continuously mentions this throughout OT session. OBJECTIVE: PAIN: no c/o pain. FUNCTIONAL MOBILITY Sit-stand: S, FWW Stand-sit: S, FWW Sink-Chair: S-SBA, FWW Chair-Sink: S, SBA, FWW BATHING: Upper Body: Standing at sink with FWW, S-SBA, pt able to (I) wash face GROOMING: Standing at sink with FWW, S-SBA (I) with brushing care with step by step instructions, (I) with washing teeth with step by step instructions and Max (A) for water control and identification of hot and cold water handles. ASSESSMENT: Pt was able to perform grooming routine standing at sink with FWW with increased (I) however required multiple vc and step by step instructions. Pt needed max (A) with turning off water and she became flustered and asked what do I do to stop the water. She demonstrated increased (I) with opening and closing containers with vc to supported motions. Pt would benefit from continued skilled OT intervention for education in toileting routine on toilet and progression of bathing routine. Pt reports that the plan for her at this time is to live closer to her daughter. PLAN: Progression of bathing routine Education for toileting routine TREATMENT CODES/TIME: Self Care ([id number]) (09:45) Steff Sutton OTR/L [facility]
--- NOTE | 2018-03-31 11:20 | PT.INTREAT ---
Date of service: 03/31/18 Time of Service: 10:50 PT Notes Inpatient Physical Therapy Treatment Note [facility] Date: 03/31/18 PRECAUTIONS: standard SUBJECTIVE: June states that she's feeling well. She's anxious to do more walking, stating she wants to get well. OBJECTIVE: PAIN: none BED MOBILITY/TRANSFERS Sit-stand: SBA Stand-sit: SBA GAIT Assistive Device: FWW Weight bearing: FULL Assist: SBA Distance: 350' Deviation: intermittent cues for avoidance of obstacles. Patient demonstrates poor safety awareness, frequently eliminating UE support to walker during ambulation, and failing to avoid obstacles. THEREX: Progressed to closed chain strengthening activities, where patient requires UE support to FWW throughout. She was able to tolerate introduction of balance retraining activities, although requires max cues for appropriate completion throughout. ASSESSMENT: Progressing well with her mobility, although with poor safety awareness and continued safety concerns. PLAN: Continue progressing for improved strength and activity tolerance. TREATMENT CODE/TIME: 17591, 63806 (30 minutes)
--- NOTE | 2018-03-31 14:23 | CHAPLAIN ---
Ne visited with Ne a couple of times yesterday, but we were interrupted. Today she is sitting up in chair. She tells me she is tired and still distraught about her dogs being euthanized. Ne lived on over [address] in [place], [place], with eight dogs, and sometimes of more dogs that she fostered, and horses. Recently, Ne daughter has decided that Ne should move in with her family in [place] and so plans to sell Ne house and property, and had her dogs euthanized. This was all terribly upsetting to Ne as, according to her, she has not had input into this decision making process and she she does not want to leave her [place] property. She said she is tired and having trouble sorting out what will come next.
--- NOTE | 2018-03-31 15:14 | W.PM.PROGNOT ---
Date of Service Date of service: 03/31/18 Time of Service: 15:16 Assessment and Plan (1) Bacteremia: Current visit: Yes Status: Acute Blood cultures grew E-coli. Currently on day #6 of antibiotics, now on Cipro. Urinary source. Remains afebrile. Discussed with Urology, will need 14 day course and follow up for stone removal. Continue Cipro. (2) Hydronephrosis concurrent with and due to calculi of kidney and ureter: Current visit: Yes Status: Acute As above, Urology placed ureteral stent on 03/27/18. Per urology, no concern for septic stone as the organism is not a likely source for septic stone. She will require follow up for stone extraction within 3 months. Continue antibiotics as above for UTI/bacteremia. (3) Complicated UTI (urinary tract infection): Current visit: Yes Status: Acute As above, on day #6 of Cipro for UTI with bacteremia and stone. (4) Hypomagnesemia: Current visit: Yes Status: Acute Replete and monitor magnesium level. (5) DVT (deep venous thrombosis): Current visit: Yes Status: Chronic Subcutaneous lovenox and SCDs. (6) Discharge planning issues: Current visit: Yes Status: Acute She is a DNR/DNI. She will be discharged to a alf facility when ready. She is no longer safe at home alone. This case was discussed with Dr. Arnett who is in agreement. Subjective Interval history since last seen: Ne janny is a 72 year old female with a history of mild cognitive impairment who lives alone at home who is currently being treated for UTI, obstructing kidney stones, urethral stent placement, malnutrition, weakness. Urology is following her care. She is currently on day #6 of a 14 day course. She reports some mild discomfort when she moves just right. She denies dysuria or hematuria. She endorses some urinary incontinence. She is eating and drinking with no abdominal pain, nausea, vomiting or diarrhea. She denies shortness of breath, cough, wheezing, no chest pain/pressure, palpitations. She does feel emotional today talking about her animals. She wants to get home to take care of her 8 dogs. She feels like her daughter took over and everything is out of her control. Exam Narrative Exam Narrative: General: appears younger than stated age, sitting up in the chair, in NAD. Alert, not oriented, unable to state year, place, gave wrong date. HEENT: normocephalic, atraumatic, pupils equal and round, mucous membranes moist. Respiratory: respirations even and unlabored, lung sounds clear to auscultation throughout. Cardiovascular: heart has regular rate and rhythm, no murmur. GI: abdomen soft, nondistended, nontender on palpation, no masses appreciated, normoactive bowel sounds. No CVA tenderness. Extremities: trace edema to bilateral lower extremities, peripheral pulses intact. Objective Objective Clinical Data: Abnormal lab results 03/31/18 03/31/18 Range/Units 06:28 06:28 RBC 3.54 L (4.00-5.20) m/cumm Hgb 10.6 L (12.0-15.5) g/dL Hct 32.7 L (36.0-46.0) % Absolute Lymphocytes 0.81 L (1.2-3.4) k/cumm Chloride 110 H (98-107) mmol/L Magnesium 1.7 L (1.8-2.4) mg/dL Vital Signs Temperature 36.9 C 03/31/18 07:45 Temperature Source Tympanic 03/31/18 07:45 Pulse 71 03/31/18 07:45 Pulse Rhythm Regular 03/31/18 08:35 Respiratory Rate 20 03/31/18 07:45 Respiratory Effort Non-Labored 03/31/18 08:35 Respiratory Depth Normal 03/31/18 08:35 Respiratory Pattern Normal 03/31/18 08:35 Blood Pressure 146/75 H 03/31/18 07:45 Blood Pressure Position Sitting 03/26/18 19:47 Pulse Oximetry 98 03/31/18 07:50 Respiratory End-tidal CO2 29 03/27/18 10:52 Oxygen Delivery Method Room Air 03/31/18 07:50 Oxygen Flow Rate 0 03/31/18 07:50 Pain Level 0 03/29/18 07:45 Comment 03/27/18 09:19 Intake & Output 03/30/18 03/31/18 03/31/18 23:59 11:59 23:59 Intake Total 240 / 2175 450 / 810 360 / 810 Output Total 850 / 2550 900 / 900 Balance -610 / -375 -450 / -90 360 / -90 Intake: Oral 240 / 490 450 / 810 360 / 810 Output: Urine 850 / 2550 900 / 900 Other: Urine Color Yellow Yellow Yellow Urine Appearance Clear Clear Clear Cloudy Urine Odor Normal Normal Comment medium void, missed hat Has constant urges to void but only dribbles come out. pt forgets to ring call [place] for assistance to get off the toilet and walks back to chair. Stool Occult Blood Negative Stool Size Small Stool Characteristics Soft Formed Brown Voiding Methods Toilet Toilet Laboratory Results WBC 5.82 k/cumm (4.4-10.8) 03/31/18 06:28 RBC 3.54 m/cumm (4.00-5.20) L 03/31/18 06:28 Hgb 10.6 g/dL (12.0-15.5) L 03/31/18 06:28 Hct 32.7 % (36.0-46.0) L 03/31/18 06:28 MCV 92.4 fL (80-95) 03/31/18 06:28 MCH 29.9 pg (27.0-33.0) 03/31/18 06:28 MCHC 32.4 g/dL (32.0-36.0) 03/31/18 06:28 RDW 13.9 % (11.7-14.6) 03/31/18 06:28 Plt Count 273 x1000/uL (130-400) 03/31/18 06:28 MPV 10.5 fL (8.0-11.0) 03/31/18 06:28 Immature Gran % See Differential 03/31/18 06:28 Neutrophils % 78.0 03/31/18 06:28 Lymphocytes % 8.0 03/31/18 06:28 Monocytes % 4.0 03/31/18 06:28 Eosinophils % 2.0 03/31/18 06:28 Basophils % 0.0 03/31/18 06:28 Absolute Neutrophils 4.54 k/cumm (1.2-6.7) 03/31/18 06:28 Band Neutrophils 7.0 % 03/30/18 06:31 Absolute Lymphocytes 0.81 k/cumm (1.2-3.4) L 03/31/18 06:28 Absolute Monocytes 0.23 k/cumm (0.11-0.7) 03/31/18 06:28 Absolute Eosinophils 0.12 k/cumm (0.0-0.7) 03/31/18 06:28 Absolute Basophils 0.00 k/cumm (0.0-0.2) 03/31/18 06:28 Metamyelocytes 1.0 % 03/31/18 06:28 Myelocytes 1.0 % 03/31/18 06:28 Differential Comment Manual differential 03/31/18 06:28 Atypical Lymphocytes 6 03/31/18 06:28 RBC Morphology See below 03/31/18 06:28 Polychromasia Present 03/31/18 06:28 PT 9.4 sec (9.3-11.0) 03/26/18 20:00 INR 0.9 (0.9-1.1) 03/26/18 20:00 APTT 32.0 sec (21.0-31.4) H 03/26/18 20:00 Sodium 143 mmol/L (136-145) 03/31/18 06:28 Potassium 4.2 mmol/L (3.5-5.1) 03/31/18 06:28 Chloride 110 mmol/L (98-107) H 03/31/18 06:28 Carbon Dioxide 28.2 mmol/L (21.0-32.0) 03/31/18 06:28 Anion Gap 4.8 mmol/L (3-11) 03/31/18 06:28 BUN 9 mg/dL (7-18) 03/31/18 06:28 Creatinine 0.60 mg/dL (0.55-1.02) 03/31/18 06:28 Estimated GFR/1.73 m2 >= 60.00 (mL/min/1.73m2) 03/31/18 06:28 Glucose 88 mg/dL (70-100) 03/31/18 06:28 Lactate 0.5 mmol/L (0.6-1.4) L 03/27/18 01:40 Calcium 8.5 mg/dL (8.5-10.1) 03/31/18 06:28 Magnesium 1.7 mg/dL (1.8-2.4) L 03/31/18 06:28 Total Bilirubin 0.5 mg/dL (0.2-1.0) 03/27/18 07:20 AST 18 U/L (15-37) 03/27/18 07:20 ALT 18 U/L (12-78) 03/27/18 07:20 Alkaline Phosphatase 81 U/L (46-116) 03/27/18 07:20 Ammonia < 10 umol/L (11-32) L 03/26/18 20:00 Total Protein 6.1 g/dL (6.4-8.2) L 03/27/18 07:20 Albumin 2.5 g/dL (3.4-5.0) L 03/27/18 07:20 TSH 1.35 uIU/mL (0.358-3.74) 03/26/18 20:00 Urine Color Yellow (Yellow) 03/26/18 20:05 Urine Clarity Sl cloudy 03/26/18 20:05 Urine pH 5.0 (5-8) 03/26/18 20:05 Ur Specific [place] 1.025 (1.005-1.025) 03/26/18 20:05 Urine Protein 100 mg/dL (Negative) H 03/26/18 20:05 Urine Ketones Negative mg/dL (Negative) 03/26/18 20:05 Urine Blood Small (Negative) H 03/26/18 20:05 Urine Nitrite Negative (Negative) 03/26/18 20:05 Urine Bilirubin Negative (Negative) 03/26/18 20:05 Urine Urobilinogen 0.2 EU/dL (Up TO 0.2) 03/26/18 20:05 Ur Leukocyte Esterase Small (Negative) H 03/26/18 20:05 Urine RBC 5-10 (0-2) H 03/26/18 20:05 Urine WBC >50 HPF (0-5) 03/26/18 20:05 Ur Epithelial Cells Negative HPF (Negative) 03/26/18 20:05 Urine Crystals Moderate amorphous HPF (Negative) 03/26/18 20:05 Urine Bacteria Rare HPF (Negative) 03/26/18 20:05 Urine Casts 5-10 fine granular LPF (Negative) 03/26/18 20:05 Urine Mucus Negative (Negative) 03/26/18 20:05 Urine Other Negative (Negative) 03/26/18 20:05 Ur Culture Indicated? Yes 03/26/18 20:05 Urine Glucose Negative mg/dL (Negative) 03/26/18 20:05 Salicylates < 2.8 mg/dL (2.8-20.0) L 03/26/18 20:00 Urine Opiates Screen Negative (Negative) 03/26/18 20:05 Urine Methadone Screen Negative (Negative) 03/26/18 20:05 Ur Barbiturates Screen Negative (Negative) 03/26/18 20:05 Ur Tricyclics Screen Negative (Negative) 03/26/18 20:05 Ur Amphetamines Screen Negative (Negative) 03/26/18 20:05 U Benzodiazepines Scrn Negative (Negative) 03/26/18 20:05 Urine Cocaine Screen Negative (Negative) 03/26/18 20:05 Ur THC Screen Negative (Negative) 03/26/18 20:05 Ethyl Alcohol < 3.0 mg/dL (<3) 03/26/18 20:00
--- NOTE | 2018-03-31 15:58 | PDOC.CMPRO ---
- If Service Date Differs Date of service: 03/31/18 Time of Service: 15:58 Care Management Progress Note S/O:CM met with patient today and updated by OT. Per OT report Ne appears more confused today and having difficulty following direction. [place] is providing support to Ne related to recent events. Ne is appreciative of that support. Ne has transition to oral antibiotics and maintains a right urethral stent. Ne will need to follow up with urologist at [facility] after discharge. Plan will be for Ne to transition to SNF while she is preparing to move in with her daughter. She will have short term rehab at [facility] in [place], [place]. CM spoke with admissions today anticipate a bed will be available on . Inocencia requests updates tomorrow and provides work number: [phone]-Medical staff office at [facility]. A: 72 year old female admitted to [facility] 03/26/18 for Delerium, UTI. P: Ne will discharge to SNF near her daughter's home in [place], [place] when medically ready per MD. She will require close follow up with Urology per MD-Inocencia reports being able to coordinate follow up at [facility]. CM will continue to offer support to patient, family, and care team regarding discharge planning and disposition.
--- NOTE | 2018-03-31 16:01 | PHARADMIT ---
Admission Pharmacy Clinical Review delirium, UTI Code Status DNR/DNI Current Weight 44.5 kg Renally Cleared and Narrow Therapeutic Index Meds Crcl ~43.99 mL/min current meds okay QTc Value / Action Taken QTc 443 from Feb 2018 BP Control, Fever BP 146/75 afebrile Electrolytes reviewed Cl 110 mag 1.7 DVT Prophylaxis enoxaparin Opiate Usage / Scheduled Bowel Regimen Ordered no/prn Plt/SCr for Heparin / Enoxaparin plt 273 SCr 0.60 INR for Warfarin n/a H/H stable, WBC/Bands h/h 10.6/32.7 wbc 5.82 Antibiotic appropriateness PO cipro- urianry source, day 6/14 of abx Cultures and Sensitivities one of 2 blood cultures grew E.coli sensitive to cipro, other no growth urine culture grew E.coli sensitive to cipro C.diff and rapid flu negative Surgical ABX d/c within 24 hr n/a DM control / Insulin Dosing BG 93 none Heart Failure (Check EF%) (DODIE's, B-Block, Diuretics) none IV to PO Switch n/a Home Meds Reviewed n/a Home Meds Not Ordered herbs(not specified) Comments follow up with urology for stone removal CM working on placement
--- NOTE | 2018-03-31 16:10 | CMPROGNOTE_ITS ---
- If Service Date Differs Date of service: 03/31/18 Time of Service: 15:58 Care Management Progress Note S/O:CM met with patient today and updated by OT. Per OT report Ne appears more confused today and having difficulty following direction. [facility] is providing support to Ne related to recent events. Ne is appreciative of that support. Ne has transition to oral antibiotics and maintains a right urethral stent. Ne will need to follow up with urologist at [facility] after discharge. Plan will be for Ne to transition to SNF while she is preparing to move in with her daughter. She will have short term rehab at [facility] in [place], [place]. CM spoke with admissions today anticipate a bed will be available on . Inocencia requests updates tomorrow and provides work number: [phone]-Medical staff office at [facility]. A: 72 year old female admitted to [facility] 03/26/18 for Delerium, UTI. P: Ne will discharge to SNF near her daughter's home in [place], [place] when medically ready per MD. She will require close follow up with Urology per MD- Inocencia reports being able to coordinate follow up at [facility]. CM will continue to offer support to patient, family, and care team regarding discharge planning and disposition.
[2018-03-31 16:15] VITALS: BP 124/64; PULSE 71; RESP 16; TEMP 36.7; O2SAT 99
--- NOTE | 2018-03-31 17:07 | PT.INTREAT ---
Date of service: 03/31/18 Time of Service: 16:20 PT Notes [facility] Date: 03/31/18 PRECAUTIONS: standard SUBJECTIVE: Ne states she is very willing to get up and walk in order to keep moving and get out of her room OBJECTIVE: PAIN: none Sit-stand: SBA Stand-sit: SBA Patient performing sit to stand for up to 5 repetitions with work on decreasing her UE support. She is able to perform the last sit to stand with CGA and with 1 UE support versus the bilateral she was using before. GAIT Assistive Device: FWW Weight bearing: FULL Assist: SBA Distance: 300' Deviation: intermittent cues for avoidance of obstacles. Patient demonstrates poor safety awareness, frequently eliminating UE support to walker during ambulation, and failing to avoid obstacles. Patient was able to perform up to 20feet without an Assistive device but required CGA versus SBA with walker THEREX: Progressed to closed chain strengthening activities, where patient requires UE support to FWW throughout. She was able to tolerate introduction of balance retraining activities, although requires max cues for appropriate completion throughout. ASSESSMENT: Progressing well with her mobility,patient is focusing on increasing her balance with heel toe walking under CGA, Single leg stance in her walker with 1 UE support, and work on improving her safety awareness with gait mechanics. PLAN: Continue progressing for improved strength and activity tolerance. TREATMENT CODE/TIME: 10007, 38646 (30 minutes)
[2018-03-31] MEDS: Acetaminophen Solution 650 MG/20.3 ML CUP PO (22:18)
[2018-03-31] MEDS: Melatonin 3 MG TAB PO (22:19)
[2018-04-01 00:35] VITALS: BP 148/72; PULSE 67; RESP 21; TEMP 36.2; O2SAT 99
[2018-04-01 07:20] VITALS: BP 140/72; PULSE 60; RESP 16; TEMP 36.7; O2SAT 100
[2018-04-01 07:23] LABS: Abs Immature Grans 0.05 k/cumm (0.0-0.09); HCT 34.4 % (36.0-46.0); HGB 11.1 g/dL (12.0-15.5); Mean Corp. HGB Concentration 32.3 g/dL (32.0-36.0); Mean Corpuscular Hemoglobin 29.8 pg (27.0-33.0); Mean Corpuscular Volume 92.5 fL (80-95); Mean Platelet Volume 10.4 fL (8.0-11.0); Platelet Count 309 x1000/uL (130-400); RBC 3.72 m/cumm (4.00-5.20); RBC Distribution Width 14.1 % (11.7-14.6); White Blood Cell Count 5.18 k/cumm (4.4-10.8)
[2018-04-01 07:26] LABS: Anion Gap 9.4 mmol/L (3-11); BUN 9 mg/dL (7-18); CO2 26.6 mmol/L (21.0-32.0); CREATININE 0.73 mg/dL (0.55-1.02); Calcium 8.9 mg/dL (8.5-10.1); Chloride 109 mmol/L (98-107); Glucose 81 mg/dL (70-100); Magnesium 1.8 mg/dL (1.8-2.4); Sodium 145 mmol/L (136-145)
[2018-04-01 08:15] LABS: Absolute Lymphocyte Count 0.67 k/cumm (1.2-3.4); Absolute Neutrophil Count 3.78 k/cumm (1.2-6.7); Atypical Lymphocytes % 3
[2018-04-01 08:16] LABS: Absolute Eosinophil Count 0.05 k/cumm (0.0-0.7); Absolute Monocyte Count 0.57 k/cumm (0.11-0.7)
[2018-04-01 08:17] LABS: Diff Comment Manual Differential; Polychromasia Present
[2018-04-01 08:18] LABS: Poikilocytes 2+
--- NOTE | 2018-04-01 08:48 | OT.INTREAT ---
Date of service: 04/01/18 Time of Service: 08:10 Occupational Therapy Notes Occupational Therapy Inpatient Treatment Note Date: 04/01/18 PRECAUTIONS: Fall Risk SUBJECTIVE: Pt was on toilet when OT arrived with FINANCIAL ASSISTANCE SPECIALIST in room. Pt was agreeable to OT session and reports that she was really cold today. OBJECTIVE: PAIN:no c/o pain. FUNCTIONAL MOBILITY Sit-stand: SBA, FWW Stand-sit: SBA, FWW Sink-Chair: SBA, FWW Chair-Sink: SBA, FWW BATHING: Sitting in chair with max (A) for set up. Upper Body: Mod vc with step by step instructions (I) with washing if step by step instructions performed. Lower Body: Min (A) with (B) feet. (I) with washing upper legs. DRESSING: Upper Extremity:min (A) donning and doffing hospital gown in seated position. GROOMING: Standing at sink with FWW, with step by step instructions and vc/tactile cues pt performed teeth brushing able to put in and out of mouth (I), brushing hair which pt was able to perform (I). TOILETING: Device: On toilet Assist: (I) with min vc and step by step cues for hygiene. ASSESSMENT/PLAN: Pt requires break down step by step instructions for ADL routines. She is able to perform them (I) with verbal support and tactile cues. She has decreased awareness of body positioning at sink and required vc for body mechanics. Pt would benefit from continued OT intervention for education and training in body mechanics to increase pts (I) in ADL routines. TREATMENT CODES/TIME: 66475 x2 30 minutes [facility]
--- NOTE | 2018-04-01 08:57 | OTTR_ITS ---
Date of service: 04/01/18 Time of Service: 08:10 Occupational Therapy Notes Occupational Therapy Inpatient Treatment Note Date: 04/01/18 PRECAUTIONS: Fall Risk SUBJECTIVE: Pt was on toilet when OT arrived with MASONRY INSTALLER in room. Pt was agreeable to OT session and reports that she was really cold today. OBJECTIVE: PAIN:no c/o pain. FUNCTIONAL MOBILITY Sit-stand: SBA, FWW Stand-sit: SBA, FWW Sink-Chair: SBA, FWW Chair-Sink: SBA, FWW BATHING: Sitting in chair with max (A) for set up. Upper Body: Mod vc with step by step instructions (I) with washing if step by step instructions performed. Lower Body: Min (A) with (B) feet. (I) with washing upper legs. DRESSING: Upper Extremity:min (A) donning and doffing hospital gown in seated position. GROOMING: Standing at sink with FWW, with step by step instructions and vc/tactile cues pt performed teeth brushing able to put in and out of mouth (I), brushing hair which pt was able to perform (I). TOILETING: Device: On toilet Assist: (I) with min vc and step by step cues for hygiene. ASSESSMENT/PLAN: Pt requires break down step by step instructions for ADL routines. She is able to perform them (I) with verbal support and tactile cues. She has decreased awareness of body positioning at sink and required vc for body mechanics. Pt would benefit from continued OT intervention for education and training in body mechanics to increase pts (I) in ADL routines. TREATMENT CODES/TIME: 01131 x2 30 minutes [facility]
[2018-04-01] MEDS: Enoxaparin 40 MG/0.4 ML SYR SC (09:07)
[2018-04-01] MEDS: Potassium Chloride 20 MEQ TABCR 40 MEQ PO ×2 (09:08→18:57)
[2018-04-01] MEDS: Acetaminophen Solution 650 MG/20.3 ML CUP PO ×2 (09:08→18:56)
[2018-04-01] MEDS: Ciprofloxacin 500 MG TAB PO ×2 (09:08→18:57)
--- NOTE | 2018-04-01 09:22 | PDOC.CMPRO ---
Care Management Progress Note S/O: Ne will need close follow up with urologist at [facility] after discharge-Dr. Bravo's office will provide refrral.-her daughter Inocencia reports she will follow up with appointment as well. Plan will be for Ne to transition to SNF for continued strengthening while Inocencia is preparing space for Ne to move in with her daughter; she will have short term rehab at [facility] in [place], [place]. CM spoke with admissions: Breana to coordinate anticipated discharge for tomorrow. Breana called to notify that [facility] would not be able to offer bed until sometime next week. Inocencia reports her mother is unable to be home alone at this time; this information confirmed by PT/OT notes of weakness and confusion. Ne will likely require SWB1 for continued strengthening until a bed can open up Inocencia requests updates regarding discharge planning as she will transport Ne to [facility]- Inocencia's work number: [phone]-Medical staff office at [facility]. A: 72 year old female admitted to [facility] 03/26/18 for Delerium, UTI. P: Ne will discharge to [facility] SNF near her daughter's home in [place], [place] when a bed becomes available. Due to increased confusion and weakness she will enter SWB1 until a bed becomes available. She will require close follow up with Urology per MD-Inocencia reports being able to support coordination at [facility]. CM will continue to offer support to patient, family, and care team regarding discharge planning and disposition.
[2018-04-01 09:40] VITALS: O2SAT 98
--- NOTE | 2018-04-01 10:11 | PT.INPN ---
Date of service: 04/01/18 Time of Service: 08:45 PT Notes Date: 04/01/18 Referring Doctor: Ayden Vuong MD PT Orders: PT CONSULT: Evaluate and Treat Precautions: Standard, dementia Treatment Dates: 03/28/18- 04/01/18 Patient Profile/Admitting Diagnosis: Patient is a 72-year-old female, admitted due to recent confusion, weakness, unsteadiness of gait at home. Patient was brought to the emergency room by her daughter who complained that patient was having difficulty getting out of bed and appeared to be more confused than her baseline level patient does have a history of dementia. Upon arrival to the hospital she was noted to have right lower quadrant pain and initial differential diagnosis was that there was possible appendicitis. After studies it was revealed that patient has calculi of the kidney and ureter. A temporary stent has been placed for drainage and patient will most likely have surgery in the future and she has been admitted for stabilization. She has plans to transition to SNF upon d/c. PMHX: According to patient's friend she has historically been very healthy having only an issue with dementia Social History/Home Situation: Patient lives locally in the [facility]. Her daughter is supportive, and checks in with patient regularly. Equipment Owned/DME: Patient has no equipment utilized at baseline Subjective: Patient states that she is ready to get up and moving. She's hopeful that exercising will help get her stronger. Objective: Confused female who appears of stated age. No lines. Mental Status: Confused but appropriate Pain: 0/10 ROM: Right Upper Extremity: WFL Left Upper Extremity: WFL Right Lower Extremity: WFL Left Lower Extremity: WFL Strength: Right Upper Extremity: Globally 4+/5 Left Upper Extremity: Globally 4+/5 Right Lower Extremity: Globally 4+/5 Left Lower Extremity: Globally 4+/5 Bed Mobility/Transfers: Sit-stand: SBA Stand-sit: SBA Bed-Chair: CG with MILADY Gait: Patient ambulates with WW SBJeb up to 300' (03/31/18). Today, she ambulates 120' due to light-headedness, which passes immediately upon sitting. She continues to demonstrate poor safety awareness, with need for cues for equipment management throughout session. Balance: Static Sitting: Good Dynamic Sitting: Good Static Standing: Good Dynamic Standing: Fair Informed Consent/Education: Patient instructed in purpose of PT consult and plan of care. Treatment: Today's session consisted of progressive ambulation, with cues as noted above. Patient was also instructed in open and closed chain strengthening activities, and in introductory balance retraining exercises (see flowsheet). ASSESSMENT: Patient is a 72-year-old female with a history of good physical health with the exception of dementia, recently admitted with diagnosis of renal and ureter calculi also recent onset of increased confusion and unsteadiness in gait. She's been participating in PT intervention 1-2x/day for progressive strengthening, gait training and balance retraining. She's made good functional gains, although continues to demonstrate poor safety awareness and balance. She will require continued PT intervention in SNF setting once medically stable. Goals: Goals X1 week 1. Supine-Sit Independent (progressing toward) 2. Sit-Supine Independent(progressing toward) 3. Sit-Stand Independent(progressing toward) 4. Stand-Sit Independent(progressing toward) 5. Bed-Chair Independent(progressing toward) 6. Gait with least restrictive assistive device up to 50 feet and supervision only(progressing toward) 7: Independent in Home program (progressing toward) Plan of Care/Treatment Plan: 1-2x/day, 7 days/week x 1 week. Plan of care has been reviewed with the ESTIMATOR BINDING providing the service under Physical Therapy direction. Initiate Physical Therapy intervention for strengthening, bed mobility, transfers, gait, stairs, balance training, use of assistive device. DISCHARGE RECOMMENDATIONS: To SNF once medically stable TREATMENT CODE/TIME: 92208,68356 (30 minutes)
--- NOTE | 2018-04-01 10:27 | CMPROGNOTE_ITS ---
Care Management Progress Note S/O: Ne will need close follow up with urologist at [facility] after discharge-Dr. Bravo's office will provide refrral.-her daughter Inocencia reports she will follow up with appointment as well. Plan will be for Ne to transition to SNF for continued strengthening while Inocencia is preparing space for Ne to move in with her daughter; she will have short term rehab at [facility] in [place], [place]. CM spoke with admissions: Breana to coordinate anticipated discharge for tomorrow. Breana called to notify that [facility] would not be able to offer bed until sometime next week. Inocencia reports her mother is unable to be home alone at this time; this information confirmed by PT/OT notes of weakness and confusion. Ne will likely require SWB1 for continued strengthening until a bed can open up Inocencia requests updates regarding discharge planning as she will transport Ne to [facility]- Inocencia's work number: W#[phone]-Medical staff office at [facility]. A: 72 year old female admitted to [facility] 03/26/18 for Delerium, UTI. P: Ne will discharge to [facility]F near her daughter's home in [place], [place] when a bed becomes available. Due to increased confusion and weakness she will enter SWB1 until a bed becomes available. She will require close follow up with Urology per MD-Inocencia reports being able to support coordination at [facility]. CM will continue to offer support to patient, family, and care team regarding discharge planning and disposition.
[2018-04-01] MEDS: Magnesium Oxide 400 MG TAB PO (10:30)
[2018-04-01] MEDS: Venlafaxine 37.5 MG CAPCR PO (10:30)
--- NOTE | 2018-04-01 12:41 | PGE_ITS ---
Date of Service Date of service: 04/01/18 Time of Service: 12:40 Assessment and Plan (1) Bacteremia: Current visit: Yes Status: Acute Blood cultures grew E-coli. Urinary source. Currently on day #7 of antibiotics, now on Cipro. Remains afebrile. Discussed with Urology, will require 14 day course and follow up for stone removal. Continue Cipro. (2) Hydronephrosis concurrent with and due to calculi of kidney and ureter: Current visit: Yes Status: Acute As above, Urology placed ureteral stent on 03/27/18. Per urology, no concern for septic stone as the organism is not a likely source for septic stone. She will require follow up for stone extraction within 3 months. Continue antibiotics as above for UTI/bacteremia as above. (3) Complicated UTI (urinary tract infection): Current visit: Yes Status: Acute As above, on day #7 of Cipro for UTI with bacteremia and stone. (4) Hypomagnesemia: Current visit: Yes Status: Acute Improved with supplementation, continue to monitor magnesium level. (5) DVT (deep venous thrombosis): Current visit: Yes Status: Chronic Subcutaneous lovenox and SCDs. (6) Discharge planning issues: Current visit: Yes Status: Acute She is a DNR/DNI. [facility] her daughter's home and will discharge when bed available. She is no longer safe at home alone. This case was discussed with Dr. Arnett who is in agreement. Subjective Interval history since last seen: Ne janny is a 72 year old female with a history of mild cognitive impairment who lives alone at home who is currently being treated for UTI, obstructing kidney stones, urethral stent placement, malnutrition, weakness. Urology is following her care. She is currently on day #7 of a 14 day course. The plan will be for her to follow up with Urology within the next 3 months for stone extraction. She continues to feel overwhelmed. She is not experiencing dysuria or hematuria, incontinence has improved, she continues to have some urgency. She reports mild right CVA discomfort. She is eating and drinking, no nausea, vomiting or d iarrhea. She denies shortness of breath, cough, wheezing, no chest pain/pressure, palpitations. She denies edema. Exam Narrative Exam Narrative: General: appears younger than stated age, sitting up in the chair, in NAD. Alert, oriented to self only. Psyche: appears anxious. HEENT: normocephalic, atraumatic, pupils equal and round, mucous membranes moist. Respiratory: respirations even and unlabored, lung sounds clear to auscultation throughout. Cardiovascular: heart has regular rate and rhythm, no murmur. GI: abdomen soft, nondistended, nontender on palpation, no masses appreciated, normoactive bowel sounds. No CVA tenderness. Extremities: trace edema to bilateral lower extremities, peripheral pulses intact. Feet are cool to touch bilaterally. Objective Objective Clinical Data: Abnormal lab results 04/01/18 04/01/18 Range/Units 06:20 06:20 RBC 3.72 L (4.00-5.20) m/cumm Hgb 11.1 L (12.0-15.5) g/dL Hct 34.4 L (36.0-46.0) % Absolute Lymphocytes 0.67 L (1.2-3.4) k/cumm Chloride 109 H (98-107) mmol/L Vital Signs Temperature 36.7 C 04/01/18 07:20 Temperature Source Tympanic 04/01/18 07:20 Pulse 60 04/01/18 07:20 Pulse Rhythm Regular 04/01/18 09:53 Respiratory Rate 16 04/01/18 07:20 Respiratory Effort Non-Labored 04/01/18 09:53 Respiratory Depth Normal 04/01/18 09:53 Respiratory Pattern Normal 04/01/18 09:53 Blood Pressure 140/72 04/01/18 07:20 Blood Pressure Position Sitting 03/26/18 19:47 Pulse Oximetry 100 04/01/18 07:20 Respiratory End-tidal CO2 29 03/27/18 10:52 Oxygen Delivery Method Room Air 04/01/18 07:20 Oxygen Flow Rate 0 04/01/18 07:20 Pain Level 0 04/01/18 07:20 Comment 03/27/18 09:19 Intake & Output 03/31/18 04/01/18 04/01/18 23:59 11:59 23:59 Intake Total 780 / 1230 450 / 450 Output Total 950 / 1850 1100 / 1100 Balance -170 / -620 -650 / -650 Weight 44.5 kg Intake: Oral 780 / 1230 450 / 450 Output: Urine 950 / 1850 1100 / 1100 Other: Urine Color Yellow Pale Yellow Urine Appearance Clear Clear Urine Odor Normal Normal Comment toileted ,wears pull ups pt up to void multiple times Stool Size Moderate Small Stool Characteristics Liquid Soft Brown Liquid Brown Voiding Methods Toilet Toilet Laboratory Results WBC 5.18 k/cumm (4.4-10.8) 04/01/18 06:20 RBC 3.72 m/cumm (4.00-5.20) L 04/01/18 06:20 Hgb 11.1 g/dL (12.0-15.5) L 04/01/18 06:20 Hct 34.4 % (36.0-46.0) L 04/01/18 06:20 MCV 92.5 fL (80-95) 04/01/18 06:20 MCH 29.8 pg (27.0-33.0) 04/01/18 06:20 MCHC 32.3 g/dL (32.0-36.0) 04/01/18 06:20 RDW 14.1 % (11.7-14.6) 04/01/18 06:20 Plt Count 309 x1000/uL (130-400) 04/01/18 06:20 MPV 10.4 fL (8.0-11.0) 04/01/18 06:20 Immature Gran % 0.0 04/01/18 06:20 Neutrophils % 70.0 04/01/18 06:20 Band Neutrophils % 3.0 % 04/01/18 06:20 Lymphocytes % 10.0 04/01/18 06:20 Atypical Lymphs % 3 04/01/18 06:20 Monocytes % 11.0 04/01/18 06:20 Eosinophils % 1.0 04/01/18 06:20 Basophils % 0.0 04/01/18 06:20 Absolute Neutrophils 3.78 k/cumm (1.2-6.7) 04/01/18 06:20 Band Neutrophils 7.0 % 03/30/18 06:31 Absolute Lymphocytes 0.67 k/cumm (1.2-3.4) L 04/01/18 06:20 Absolute Monocytes 0.57 k/cumm (0.11-0.7) 04/01/18 06:20 Absolute Eosinophils 0.05 k/cumm (0.0-0.7) 04/01/18 06:20 Absolute Basophils 0.00 k/cumm (0.0-0.2) 04/01/18 06:20 Metamyelocytes 1.0 % 04/01/18 06:20 Myelocytes 1.0 % 04/01/18 06:20 Differential Comment Manual differential 04/01/18 06:20 Atypical Lymphocytes 6 03/31/18 06:28 RBC Morphology See below 04/01/18 06:20 Polychromasia Present 04/01/18 06:20 Poikilocytosis 2+ 04/01/18 06:20 PT 9.4 sec (9.3-11.0) 03/26/18 20:00 INR 0.9 (0.9-1.1) 03/26/18 20:00 APTT 32.0 sec (21.0-31.4) H 03/26/18 20:00 Sodium 145 mmol/L (136-145) 04/01/18 06:20 Potassium 4.0 mmol/L (3.5-5.1) 04/01/18 06:20 Chloride 109 mmol/L (98-107) H 04/01/18 06:20 Carbon Dioxide 26.6 mmol/L (21.0-32.0) 04/01/18 06:20 Anion Gap 9.4 mmol/L (3-11) 04/01/18 06:20 BUN 9 mg/dL (7-18) 04/01/18 06:20 Creatinine 0.73 mg/dL (0.55-1.02) 04/01/18 06:20 Estimated GFR/1.73 m2 >= 60.00 (mL/min/1.73m2) 04/01/18 06:20 Glucose 81 mg/dL (70-100) 04/01/18 06:20 Lactate 0.5 mmol/L (0.6-1.4) L 03/27/18 01:40 Calcium 8.9 mg/dL (8.5-10.1) 04/01/18 06:20 Magnesium 1.8 mg/dL (1.8-2.4) 04/01/18 06:20 Total Bilirubin 0.5 mg/dL (0.2-1.0) 03/27/18 07:20 AST 18 U/L (15-37) 03/27/18 07:20 ALT 18 U/L (12-78) 03/27/18 07:20 Alkaline Phosphatase 81 U/L (46-116) 03/27/18 07:20 Ammonia < 10 umol/L (11-32) L 03/26/18 20:00 Total Protein 6.1 g/dL (6.4-8.2) L 03/27/18 07:20 Albumin 2.5 g/dL (3.4-5.0) L 03/27/18 07:20 TSH 1.35 uIU/mL (0.358-3.74) 03/26/18 20:00 Urine Color Yellow (Yellow) 03/26/18 20:05 Urine Clarity Sl cloudy 03/26/18 20:05 Urine pH 5.0 (5-8) 03/26/18 20:05 Ur Specific Langlois 1.025 (1.005-1.025) 03/26/18 20:05 Urine Protein 100 mg/dL (Negative) H 03/26/18 20:05 Urine Ketones Negative mg/dL (Negative) 03/26/18 20:05 Urine Blood Small (Negative) H 03/26/18 20:05 Urine Nitrite Negative (Negative) 03/26/18 20:05 Urine Bilirubin Negative (Negative) 03/26/18 20:05 Urine Urobilinogen 0.2 EU/dL (Up TO 0.2) 03/26/18 20:05 Ur Leukocyte Esterase Small (Negative) H 03/26/18 20:05 Urine RBC 5-10 (0-2) H 03/26/18 20:05 Urine WBC >50 HPF (0-5) 03/26/18 20:05 Ur Epithelial Cells Negative HPF (Negative) 03/26/18 20:05 Urine Crystals Moderate amorphous HPF (Negative) 03/26/18 20:05 Urine Bacteria Rare HPF (Negative) 03/26/18 20:05 Urine Casts 5-10 fine granular LPF (Negative) 03/26/18 20:05 Urine Mucus Negative (Negative) 03/26/18 20:05 Urine Other Negative (Negative) 03/26/18 20:05 Ur Culture Indicated? Yes 03/26/18 20:05 Urine Glucose Negative mg/dL (Negative) 03/26/18 20:05 Salicylates < 2.8 mg/dL (2.8-20.0) L 03/26/18 20:00 Urine Opiates Screen Negative (Negative) 03/26/18 20:05 Urine Methadone Screen Negative (Negative) 03/26/18 20:05 Ur Barbiturates Screen Negative (Negative) 03/26/18 20:05 Ur Tricyclics Screen Negative (Negative) 03/26/18 20:05 Ur Amphetamines Screen Negative (Negative) 03/26/18 20:05 U Benzodiazepines Scrn Negative (Negative) 03/26/18 20:05 Urine Cocaine Screen Negative (Negative) 03/26/18 20:05 Ur THC Screen Negative (Negative) 03/26/18 20:05 Ethyl Alcohol < 3.0 mg/dL (<3) 03/26/18 20:00
--- NOTE | 2018-04-01 13:54 | CHAPLAIN ---
Ne was sitting up in her chair when I visited. She seemed much more tired than yesterday and grimaced when she sat up straight or moved forward. Ne speaks softly and I and didn't hear everything she said, but she continued today to tell me about her dogs who were euthanized because her daughter said they were older dogs and wouldn't get adopted. Ne had several dogs and a cat (and horses at one time) at her home in [place] with 50 acres and some ponds. Ne talked about what good company her dogs were and how they were able to sense her moods and needs and provided comforting companionship for her. Ne said her daughter plans to move Ne into her home in [place], [place], after a stay at a rehab for strengthening. Ne said she usually relied on her dogs for comfort, and without them she is struggling the emotions of losing them and preparing for a major move for her. I mostly listened to Ne tell me about her dogs and about her life with them.
--- NOTE | 2018-04-01 15:23 | PT.INTREAT ---
Date of service: 04/01/18 Time of Service: 14:15 PT Notes Inpatient Physical Therapy Treatment Note [facility] Date: 04/01/18 PRECAUTIONS: Fall / standard SUBJECTIVE: I need to keep moving so I do not get weak. OBJECTIVE: PAIN: No reports of pain. BED MOBILITY/TRANSFERS Up in chair when I arrived to patient's room. Sit-stand: SBA Stand-sit: SBA GAIT Assistive Device: FWW Weight bearing: Full Assist: SBA Distance: 10ft chair to toilet, 140ft x 1 THEREX: Performed LAQ, AP, seated hip flexion and hip abd/add, standing hip flexion and hip abd/add, UE shoulder flexion to 90 degrees, shoulder horizontal abd/add and elbow flexion / extension for 10 to 15 reps each. ASSESSMENT: Tolerated session well with good effort given throughout session. PLAN: Continue with current plan of care with focus on strengthening and ambulation for improved ADL function. TREATMENT CODE/TIME: ELIJAH ANDERSON, 2:15 to 2:45 (30')
[2018-04-01 16:30] VITALS: BP 139/68; PULSE 76; RESP 16; TEMP 36.6; O2SAT 98
[2018-04-01 23:48] VITALS: BP 156/71; PULSE 64; RESP 20; TEMP 36.4; O2SAT 98
[2018-04-02 06:51] LABS: Abs Immature Grans 0.03 k/cumm (0.0-0.09); Absolute Basophil Count 0.02 k/cumm (0.0-0.2); Absolute Lymphocyte Count 0.54 k/cumm (1.2-3.4); Absolute Monocyte Count 0.45 k/cumm (0.11-0.7); Absolute Neutrophil Count 4.77 k/cumm (1.2-6.7); Basophils % 0.3; Eosinophils % 1.7; HCT 35.2 % (36.0-46.0); HGB 11.5 g/dL (12.0-15.5); Immature Grans % 0.5; Lymphocytes % 9.1; Mean Corp. HGB Concentration 32.7 g/dL (32.0-36.0); Mean Corpuscular Hemoglobin 29.9 pg (27.0-33.0); Mean Corpuscular Volume 91.7 fL (80-95); Mean Platelet Volume 9.7 fL (8.0-11.0); Monocytes % 7.6; Neutrophils % 80.8; Platelet Count 358 x1000/uL (130-400); RBC 3.84 m/cumm (4.00-5.20); RBC Distribution Width 14.1 % (11.7-14.6); White Blood Cell Count 5.91 k/cumm (4.4-10.8)
[2018-04-02 07:03] LABS: Anion Gap 9.7 mmol/L (3-11); BUN 8 mg/dL (7-18); CO2 26.3 mmol/L (21.0-32.0); CREATININE 0.62 mg/dL (0.55-1.02); Calcium 8.9 mg/dL (8.5-10.1); Chloride 107 mmol/L (98-107); Glucose 83 mg/dL (70-100); Magnesium 1.8 mg/dL (1.8-2.4); Potassium 3.7 mmol/L (3.5-5.1); Sodium 143 mmol/L (136-145)
[2018-04-02 07:25] VITALS: BP 133/77; PULSE 66; RESP 20; TEMP 36.5; O2SAT 98; O2SAT 99
--- NOTE | 2018-04-02 08:56 | PDOC.CMPRO ---
Care Management Progress Note S/O: CM faxed referral to [facility] and [facility]-O#[phone],F#[phone]-Annabel reported she was anticipating multiple admissions due to [facility] being shut down for admissions. CM will continue to seek placement-if unable Ne will enter SWB1. A: 72 year old female admitted to [facility] 03/26/18 for Delerium, UTI. P: June will discharge to SNF near her daughter's home in [place], [place] when a bed becomes available. Due to increased confusion and weakness she will enter SWB1 until a bed becomes available. She will require close follow up with Urology per Najma reports being able to support coordination at [facility]. CM will continue to offer support to patient, family, and care team regarding discharge planning and disposition.
[2018-04-02] MEDS: Enoxaparin 40 MG/0.4 ML SYR SC (10:08)
[2018-04-02] MEDS: Potassium Chloride 20 MEQ TABCR 40 MEQ PO (10:08)
[2018-04-02] MEDS: Magnesium Oxide 400 MG TAB PO (10:08)
[2018-04-02] MEDS: Venlafaxine 37.5 MG CAPCR PO (10:08)
[2018-04-02] MEDS: Ciprofloxacin 500 MG TAB PO (10:08)
--- NOTE | 2018-04-02 10:29 | OT.INTREAT ---
Date of service: 04/02/18 Time of Service: 09:55 Occupational Therapy Notes Occupational Therapy Inpatient Treatment Note Date: 04/02/18 PRECAUTIONS: Fall precautions SUBJECTIVE: Pt was sitting in chair when OT arrived with her daughter in the room. Pt reports that she would love to brush her teeth and hair this morning. Pt seemed less confused during OT session. 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 OBJECTIVE: PAIN:no c/o pain. FUNCTIONAL MOBILITY Sit-stand: S, FWW Stand-sit: S, FWW sink-Chair: S, FWW Chair-sink: S, FWW BATHING: Upper Body: [] GROOMING: [] TOILETING: [] Device: [] Assist: [] ASSESSMENT/PLAN: [] TREATMENT CODES/TIME: [id number], 15 minutes (09:55) Steff Sutton OTR/L [facility]
--- NOTE | 2018-04-02 10:35 | OTTR_ITS ---
Date of service: 04/02/18 Time of Service: 09:55 Occupational Therapy Notes Occupational Therapy Inpatient Treatment Note Date: 04/02/18 PRECAUTIONS: Fall precautions SUBJECTIVE: Pt was sitting in chair when OT arrived with her daughter in the room. Pt reports that she would love to brush her teeth and hair this morning. Pt seemed less confused during OT session. 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 OBJECTIVE: PAIN:no c/o pain. FUNCTIONAL MOBILITY Sit-stand: S, FWW Stand-sit: S, FWW sink-Chair: S, FWW Chair-sink: S, FWW BATHING: Upper Body: [] GROOMING: [] TOILETING: [] Device: [] Assist: [] ASSESSMENT/PLAN: [] TREATMENT CODES/TIME: 01510m3, 15 minutes (09:55) Steff Sutton OTR/L [facility]
--- NOTE | 2018-04-02 10:38 | OT.INDS ---
Date of service: 04/02/18 Time of Service: 09:55 Occupational Therapy Notes Occupational Therapy Inpatient Discharge Summary Date: 04/02/18 PRECAUTIONS: Fall precautions SUBJECTIVE: Pt was sitting in chair when OT arrived with her daughter in the room. Pt reports that she would love to brush her teeth and hair this morning. Pt seemed less confused during OT session. 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 OBJECTIVE: PAIN:no c/o pain. FUNCTIONAL MOBILITY Sit-stand: S, FWW Stand-sit: S, FWW sink-Chair: S, FWW min vc to continue to ambulate with FWW for safety with mobility during functional activities. Chair-sink: S, FWW BATHING: Upper Body: (I) with washing face standing at sink. GROOMING: Standing at sink with FWW, pt (I) with removing and placing in dentures, min vc for use of toothbrush but was able to TOILETING: Device: Toilet Assist: (I) ASSESSMENT: Patient is a 72-year-old female referred to occupational therapy services with diagnosis of confusion, weakness, unsteadiness of gait at home in setting of Dementia. She was seen for 4 OT sessions and demonstrated increased (I) in ADL routines. She requires min vc and with her dementia sometimes requires step by step verbal instructions with vc she is able to demonstrate ADL routines (I). Within hospital setting she has demonstrated increased (I). Pt will be discharged to [facility] today. OT will discharge pt from skilled OT services at this time. GOALS 1. Dressing- Pt will be able to perform LE dressing with min (A) and min vc 2. Bathing- Pt will be able to perform bathing routine in shower with min (A) and min vc 3. Toileting- Pt will be able to perform toileting routine (I) 4. Eating- Pt will be able to perform eating routine (I) with opening and closing containers and food to mouth translation. Pt has met all OT goals at this time. PLAN: Pt to be discharged today to [facility]. TREATMENT CODES/TIME: [id number], 15 minutes (09:55) G Codes in the area of self- : washing oneself, toileting, dressing, eating and drinking, current status GO G8987 CK projected status GO [id number]. Discharge status (if discharging) GO [id number] Steff Sutton, OTR/L [facility]
--- NOTE | 2018-04-02 10:41 | OTDS_ITS ---
Date of service: 04/02/18 Time of Service: 09:55 Occupational Therapy Notes Occupational Therapy Inpatient Discharge Summary Date: 04/02/18 PRECAUTIONS: Fall precautions SUBJECTIVE: Pt was sitting in chair when OT arrived with her daughter in the room. Pt reports that she would love to brush her teeth and hair this morning. Pt seemed less confused during OT session. 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 OBJECTIVE: PAIN:no c/o pain. FUNCTIONAL MOBILITY Sit-stand: S, FWW Stand-sit: S, FWW sink-Chair: S, FWW min vc to continue to ambulate with FWW for safety with mobility during functional activities. Chair-sink: S, FWW BATHING: Upper Body: (I) with washing face standing at sink. GROOMING: Standing at sink with FWW, pt (I) with removing and placing in dentures, min vc for use of toothbrush but was able to TOILETING: Device: Toilet Assist: (I) ASSESSMENT: Patient is a 72-year-old female referred to occupational therapy services with diagnosis of confusion, weakness, unsteadiness of gait at home in setting of Dementia. She was seen for 4 OT sessions and demonstrated increased (I) in ADL routines. She requires min vc and with her dementia sometimes requires step by step verbal instructions with vc she is able to demonstrate ADL routines (I). Within hospital setting she has demonstrated increased (I). Pt will be discharged to [facility] today. OT will discharge pt from skilled OT services at this time. GOALS 1. Dressing- Pt will be able to perform LE dressing with min (A) and min vc 2. Bathing- Pt will be able to perform bathing routine in shower with min (A) and min vc 3. Toileting- Pt will be able to perform toileting routine (I) 4. Eating- Pt will be able to perform eating routine (I) with opening and closing containers and food to mouth translation. Pt has met all OT goals at this time. PLAN: Pt to be discharged today to [facility]. TREATMENT CODES/TIME: [id number], 15 minutes (09:55) G Codes in the area of self- : washing oneself, toileting, dressing, eating and drinking, current status GO G8987 CK projected status GO [id number]. Discharge status (if discharging) GO [id number] Steff Sutton, OTR/L [facility]
--- NOTE | 2018-04-02 10:51 | CMPROGNOTE_ITS ---
Care Management Progress Note S/O: CM faxed referral to [facility] and [facility]-X#[phone],F#[phone]-Annabel reported she was anticipating mu ltiple admissions due to [facility] being shut down for admissions. CM will continue to seek placement-if unable June will enter SWB1. A: 72 year old female admitted to [facility] 03/26/18 for Delerium, UTI. P: June will discharge to SNF near her daughter's home in [place], [place] when a bed becomes available. Due to increased confusion and weakness she will enter SWB1 until a bed becomes available. She will require close follow up with Urology per Najma reports being able to support coordination at [facility]. CM will continue to offer support to patient, family, and care team regarding discharge planning and disposition.
--- NOTE | 2018-04-02 11:19 | W.PM.DS.N ---
Date of service: 04/02/18 Time of Service: 11:19 DS: Diagnosis Discharge Diagnosis (1) Bacteremia: Status: Acute (2) Hydronephrosis concurrent with and due to calculi of kidney and ureter: Status: Acute (3) Complicated UTI (urinary tract infection): Status: Acute (4) Hypomagnesemia: Status: Acute Discharge Plan Disposition Patient Disposition: SKILLED NSG. FAC.(LEVEL 1) Condition: Stable Discharge Details Reason For Visit: DELIRIUM, URINARY TRACT INFECTION Admit Date/Time: 03/26/18 21:37 Admit Provider: Jamel Cassidy Attending Provider: Jamel Cassidy Primary Care Provider: Farzaneh Davalos Hospital Course Hospital Course: Ne Sukhwinder is a 72-year-old female with a past medical history of dementia was brought to the emergency room on 03/26/18 by her daughter due to increasing confusion and generalized weakness with unsteady gait. Her daughter reported that she had been experiencing a general decline in her cognitive status for the year prior but at baseline is able to ambulate on her own and take care of herself and several dogs at home. In the emergency department, she was noted to have a fever of 38.2 rash as she had labs drawn which demonstrated leukocytosis of 15,000, mild anemia with hemoglobin of 11.2, elevated BUN of 43, creatinine 1.27, potassium was low at 3.2, her urinalysis was consistent with a urinary tract infection. Blood cultures were obtained she was started on IV antibiotics. On admission she was noted to have significant right lower quadrant pain. There was concern for appendicitis. She would not to have an abdominal CT which made note of nonobstructing stones in the right kidney, there was mild hydronephrosis on the right and perinephric stranding. She was seen by urology who placed a ureteral stent on she had some mild nausea 03/27/2018. Her blood cultures came back positive for E. coli. She was initially started on IV ceftriaxone, transition to oral Cipro. Will need to complete a 14-day course of antibiotics due to the bacteremia, she is currently on day #8 antibiotic therapy. Her leukocytosis resolved, acute kidney injury resolved. She received electrolyte replacement with her magnesium and potassium returning to normal today. The plan will be for her to follow-up with urology within the next 3 months for stone extraction. A referral has been sent to [facility] by Dr. Bravo (urologist at [facility]), as the patient is being placed at [facility] and rehab in [facility]. She will continue working with PT and OT to gain strength with the ultimate goal of her going to live with her daughter. She remains oriented to self only. Home Meds and New Rx's Prescriptions: New venlafaxine [Effexor XR] 37.5 mg Capsule,Extended Release 24hr 37.5 mg PO DAILY Qty: 0 RF: 0 ciprofloxacin HCl 500 mg Tablet 500 mg PO BID Qty: 0 RF: 0 potassium chloride [Klor-Con M20] 20 mEq Tablet,Er Particles/Crystals 40 meq PO BID Qty: 0 RF: 0 acidophilus-pectin, citrus 25 million cell -100 mg Tablet 1 cap PO TID PRN PRNQty: 0 RF: 0 Discontinued A Variety Of Herbs RF: 0 Discharge Instructions Stand Alone Forms: Nursing Discharge Form Referrals: [place]OLOGY,[facility] [place]] - (For stone extraction. Dr. Bravo sending referral.) Farzaneh Davalos [Primary Care Provider] - 04/10/18 9:45 am Activity:: Activity as Tolerated Equipment/Supplies:: No Equipment Needed Diet:: As Tolerated Discharge Orders Discharge Orders: Discharge Order (Routine); Ordered 04/02/18 Ordered By: Annabel Walden Exam Narrative Exam Narrative: General: appears younger than stated age, sitting up in the chair, in NAD. Alert, oriented to self only. Psyche: Bright and smiling. HEENT: normocephalic, atraumatic, pupils equal and round, mucous membranes moist. Respiratory: respirations even and unlabored, lung sounds clear to auscultation throughout. Cardiovascular: heart has regular rate and rhythm, no murmur. GI: abdomen soft, nondistended, nontender on palpation, no masses appreciated, normoactive bowel sounds. No CVA tenderness. Extremities: trace edema to bilateral lower extremities, peripheral pulses intact. Feet are cool to touch bilaterally. DS: Data Vitals/I&O Vitals and I&O: Vital Signs Temperature 36.5 C 04/02/18 07:25 Temperature Source Tympanic 04/02/18 07:25 Pulse 66 04/02/18 07:25 Pulse Rhythm Regular 04/02/18 10:09 Respiratory Rate 20 04/02/18 07:25 Respiratory Effort Non-Labored 04/02/18 10:09 Respiratory Depth Normal 04/02/18 10:09 Respiratory Pattern Normal 04/02/18 10:09 Blood Pressure 133/77 04/02/18 07:25 Blood Pressure Position Sitting 03/26/18 19:47 Pulse Oximetry 99 04/02/18 07:25 Respiratory End-tidal CO2 29 03/27/18 10:52 Oxygen Delivery Method Room Air 04/02/18 07:25 Oxygen Flow Rate 0 04/02/18 07:25 Pain Level 0 04/01/18 07:20 Comment 03/27/18 09:19 Intake & Output 04/01/18 04/01/18 04/02/18 11:59 23:59 11:59 Intake Total 450 / 1050 600 / 1050 810 / 810 Output Total 1100 / 1400 300 / 1400 1770 / 1770 Balance -650 / -350 300 / -350 -960 / -960 Weight 49.1 kg Intake: Oral 450 / 1050 600 / 1050 810 / 810 Output: Urine 1100 / 1400 300 / 1400 1770 / 1770 Other: Urine Color Pale Yellow Pale Yellow Urine Appearance Clear Clear Urine Odor Normal None Comment pt up to void multiple times missed hat. yellow urine. Stool Occult Blood Negative Stool Size Large Small Large Stool Characteristics Brown Soft Liquid Brown Brown Voiding Methods Toilet Toilet Toilet Completed studies during hospitalization [Text1]: 03/26/18: NONCONTRAST HEAD CT: Comparison is made with 07/11/15. There is no evidence of intracranial hemorrhage, mass or acute infarct. There is stable mild atrophy and white matter changes consistent with small vessel disease. The ventricles are normal in size. The sinuses, orbits and mastoid air cells are unremarkable. IMPRESSION: White matter changes likely reflecting small vessel disease. No acute abnormality. AP AND LATERAL CHEST: Comparison is made with 03/11/18. The heart size is normal. The lungs again show mildly increased marking which appear chronic. No superimposed infiltrate, effusion or pulmonary edema is seen. There are no thoracic compression fractures. IMPRESSION: No acute abnormality. 03/27/18: ABDOMEN AND PELVIC CT: A small portion of the lung bases are included on the exam which show dependent changes. There is a non obstructing stone measuring 4 by 7 mm. in the mid left kidney. An additional tiny adjacent stone is seen. 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 There is mild right hydronephrosis as well as right perinephric stranding. The ureter is difficult to trace into the pelvis due to lack of intra-abdominal fat. There are questionable densities in the vicinity of the distal ureter which could represent phleboliths versus ureteral calcifications. The left kidney is unremarkable. The visualized portions of the liver and spleen are unremarkable. The gallbladder is not abnormally distended and no calcified stones are seen. The pancreas and adrenals are unremarkable. No bowel dilatation or inflammatory changes are seen. The uterus, ovaries and bladder are unremarkable. IMPRESSION: Non obstructing stones in the right kidney. There is mild right hydronephrosis and perinephric stranding. No definite ureteral calculi are seen. Labs on day of discharge: Labs from last 24 hours 04/02/18 04/02/18 06:35 06:35 WBC 5.91 RBC 3.84 L Hgb 11.5 L Hct 35.2 L MCV 91.7 MCH 29.9 MCHC 32.7 RDW 14.1 Plt Count 358 MPV 9.7 Immature Gran % 0.5 Neutrophils % 80.8 Lymphocytes % 9.1 Monocytes % 7.6 Eosinophils % 1.7 Basophils % 0.3 Absolute Neutrophils 4.77 Absolute Lymphocytes 0.54 L Absolute Monocytes 0.45 Absolute Eosinophils 0.10 Absolute Basophils 0.02 Sodium 143 Potassium 3.7 Chloride 107 Carbon Dioxide 26.3 Anion Gap 9.7 BUN 8 Creatinine 0.62 Estimated GFR/1.73 m2 >= 60.00 Glucose 83 Calcium 8.9 Magnesium 1.8 PFSH Medical History Dementia (Ruled-out) Goals of care, counseling/discussion (Acute) Hypokalemia (Acute) Palliative care patient (Acute) Ureteral stenosis, right (Acute) Malnutrition (Chronic) Mild cognitive impairment (Chronic) Unintentional weight loss (Chronic) Surgical History S/P ureteral stent placement (Acute) Family History Mother Ovarian cancer Father No problems noted. Daughter No problems noted. Social History caregiver/support person: No household members: none housing: house lives independently: Yes number of children: 1 number of grandchildren: 1 fdc: No current occupational status: retired pets and animals: Yes (8 dogs) pets and animals: dog(s) well-balanced diet: rarely or never high-fat food intake: 0-1 times daily daily servings fruits/ve-1 daily servings of milk/calcium: 0-1 eating out: rarely or never reads food labels: seldom or never during the past year weight has: decreased > 10 lbs Smoking/Tobacco Use Status: Never alcohol intake: former
--- NOTE | 2018-04-02 11:26 | PT.INDS ---
Date of service: 04/02/18 Time of Service: 11:26 PT Notes Date: 04/02/18 Referring Doctor: Ayden Vuong MD PT Orders: PT CONSULT: Evaluate and Treat Precautions: Standard, dementia Treatment Dates: 03/28/18 - 04/01/18 THIS DOCUMENT SERVES A SUMMARY OF CARE. NO PHYSICAL THERAPY SERVICES WERE PROVIDED ON THIS DATE. Patient Profile/Admitting Diagnosis: Patient is a 72-year-old patient admitted due to recent confusion, weakness, unsteadiness of gait at home. She participated in PT intervention 1-2x/day for 5 days, with improved functional mobility. PMHX: According to patient's friend she has historically been very healthy having only an issue with dementia Social History/Home Situation: Patient lives independently, with several rescue animals at home. Equipment Owned/DME: Patient has no equipment utilized at baseline Subjective: Unable to be obtained. Objective: Right Upper Extremity: WFL Left Upper Extremity: WFL Right Lower Extremity: WFL Left Lower Extremity: WFL Strength: Right Upper Extremity: Globally 4+/5 Left Upper Extremity: Globally 4+/5 Right Lower Extremity: Globally 4+/5 Left Lower Extremity: Globally 4+/5 Bed Mobility/Transfers: Sit-stand: SBA Stand-sit: SBA Bed-Chair: CG with WW Gait: Patient ambulates with WW, SBA up to 300' (03/31/18). During ambulation, she consistently demonstrates path deviation and poor safety awareness. She requires continuous cues for direction and management of obstacles. Balance: Static Sitting: Good Dynamic Sitting: Good Static Standing: Good Dynamic Standing: Fair ASSESSMENT: Patient is a 72-year-old female with a history of good physical health with the exception of dementia, recently admitted with diagnosis of renal and ureter calculi also recent onset of increased confusion and unsteadiness in gait. She's been participating in PT intervention 1-2x/day for progressive strengthening, gait training and balance retraining. She's made good functional gains, although continues to demonstrate poor safety awareness and balance. She will require continued PT intervention in SNF setting once medically stable. Goals: Goals X1 week 1. Supine-Sit Independent (progressing toward) 2. Sit-Supine Independent(progressing toward) 3. Sit-Stand Independent(progressing toward) 4. Stand-Sit Independent(progressing toward) 5. Bed-Chair Independent(progressing toward) 6. Gait with least restrictive assistive device up to 50 feet and supervision only(progressing toward) 7: Independent in Home program (progressing toward) Plan of Care/Treatment Plan: Patient transitioning to SNF closer to her daughter's home for continued rehabilitation. She is not safe to return to independent living at this time. DISCHARGE RECOMMENDATIONS: SNF
--- NOTE | 2018-04-02 13:36 | PDOC.CMDIS ---
LACE Index Scoring Tool - Questions: Length of Stay (in days): 7 - 13 Acuity (Admit via E.D.?): Yes Comorbidities: Dementia E.D. Visits: 3 - Answers: Total Score: 14 Risk of Readmission: High Risk Care Management Discharge Reason for Hospitalization: Delerium, UTI. Discharge Plan: Ne will discharge to [facility] for continued rehab prior to moving in with her daughter-Inocencia. She will require close follow up with Urology per Najam reports being able to support coordination at [facility]. Ne will transport via private vehicle with her daughter. Patient/Family Education Needs: Review discharge instructions, SNF transfer coordination. Services Needed at Discharge: Jail Facility ([facility] )
--- NOTE | 2018-04-02 13:45 | CMDISCH_ITS ---
LACE Index Scoring Tool - Questions: Length of Stay (in days): 7 - 13 Acuity (Admit via E.D.?): Yes Comorbidities: Dementia E.D. Visits: 3 - Answers: Total Score: 14 Risk of Readmission: High Risk Care Management Discharge Reason for Hospitalization: Delerium, UTI. Discharge Plan: Ne will discharge to [facility] for continued rehab prior to moving in with her daughter-Inocencia. She will require close follow up with Urology per Najma reports being able to support coordination at [facility]. Ne will transport via private vehicle with her daughter. Patient/Family Education Needs: Review discharge instructions, SNF transfer coordination. Services Needed at Discharge: Correction Facility ([facility] )
== END 2018-04-02 12:23 | disposition skilled nursing facility (03) | DRG 690 ==
LOC: ER 22:19 → MS 23:54
PROVIDERS: Internal Medicine; Nurse Practitioner Family; Urology; Admitting Provider Internal Medicine; Emergency Provider Emergency Medicine; PCP Nurse Practitioner; Visit Provider Internal Medicine
PROC: 0WHR8YZ Insertion of Other Device into Genitourinary Tract, Via Natural or Artificial Opening Endoscopic (ICD-10-PCS; CPT 52332; principal; 2018-03-27 10:00)
DX: N13.6 Pyonephrosis (principal); R78.81 Bacteremia; F05 Delirium due to known physiological condition; E46 Unspecified protein-calorie malnutrition; N17.9 Acute kidney failure, unspecified; B96.20 Unspecified Escherichia coli [E. coli] as the cause of diseases classified elsewhere; R10.31 Right lower quadrant pain; E86.0 Dehydration; E83.42 Hypomagnesemia; E87.6 Hypokalemia; F03.90 Unspecified dementia, unspecified severity, without behavioral disturbance, psychotic disturbance, mood disturbance, and anxiety; R53.1 Weakness; R26.81 Unsteadiness on feet; R25.2 Cramp and spasm
CPT/HCPCS: 52332; 36415; 76000; 80048; 80053; 80307; 85027; 87040; 87077; 87449; 96365; 97110; 97162; 97166; 97530; 97535; 99222; 99223; 99231; 99232; 99233; 99239; 99252; 99255; 99285; J1650; NC; 70450; 71046; 74176; 74420; 80320; 80329; 81003; 81015; 82140; 82365; 83605; 83735; 84443; 85025; 85610; 85730; 87086; 87186; 87324; G0378; J0696; J2270; J3475; J3480; J3490; Q9967

== ENCOUNTER → 2018-03-27 11:17 | Outpatient (BNVA) | payer MEDICARE, MEDICAID, SELFPAY | PROVIDERS: PCP Nurse Practitioner; Visit Provider Urology | DX: R69 Illness, unspecified (principal) ==